=== PATIENT | male | born 1940 | race Caucasian/White ===

== ENCOUNTER 2023-03-03 13:34 | Day surgery (SDC) | payer MEDICARE, SELFPAY ==
[2023-03-02 07:50] VITALS: BMI 37.9
[2023-03-03] VITALS (11 sets, daily range): BP systolic 112–182; BP diastolic 53–88; PULSE 52–62; RESP 12–21; TEMP 36–36.6; O2SAT 92–99; BMI 37.9
--- NOTE | 2023-03-03 06:00 | DI.RAD.S_ITS ---
PROCEDURE: XR KNEE LT 1TO2V INDICATIONS: TKA TECHNIQUE: 2 view(s) of the knee acquired. COMPARISON: None. FINDINGS: Bones: Patient is status post knee joint arthroplasty. Hardware components are in expected positions. Visualized bony structures are intact. Soft tissues: Overlying postoperative changes are noted. IMPRESSION: Expected appearance of knee arthroplasty. Dictated by: Sintia South M.D. on 03/03/2023 at 17:30 Approved by: Sintia South M.D. on 03/03/2023 at 17:30
[2023-03-03 14:28] LABS: COVID19 -Nasal RAPID Negative (Negative)
[2023-03-03] MEDS: CELECOXIB 200 MG CAPSULE PO (14:29)
[2023-03-03] MEDS: LACTATED RINGERS 1,000 ML 42 ML IV (14:30)
[2023-03-03] MEDS: ACETAMINOPHEN 325 MG TABLET 975 MG PO (14:30)
--- NOTE | 2023-03-03 14:47 | PM.PREOP ---
Pre-operative Note COVID-19 COVID-19 status: Negative Result date/Date tested (Pos, Neg/Pending): 03/03/23 Interval Note History & Physical reviewed/Exam performed by Physician: Yes Changes to H&P: No
[2023-03-03] MEDS: CEFAZOLIN 2 GM/100 ML PREMIX 100 ML IV (15:42)
[2023-03-03] MEDS: TRANEXAMIC ACID 1,000 MG VIAL 2000 MG INJ ×2 (15:45→16:50)
--- NOTE | 2023-03-03 15:59 | SUR.OPER ---
Supine on padded OR bed. Pillow under head, arms secured on padded armboards <90 degree abduction. Safety belt across torso. Right leg secured with tape over blanket over lower leg. Left leg secured in DeMayo positioner. Foam padded brace at thigh of operative leg.
[2023-03-03] MEDS: BUPIVACAINE LIPOSOME 266 MG/20 ML VIAL INJ (16:05)
[2023-03-03] MEDS: MORPHINE 4 MG/ML INJ INJ (16:06)
[2023-03-03] MEDS: BUPIVACAINE 0.25% (PF) 60 ML, EPINEPHrine 0.3 MG INJ (16:08)
--- NOTE | 2023-03-03 17:09 | P.OP_ITS ---
Operative Date/Time/Diagnoses Date of procedure: 03/03/23 Time of procedure: 17:09 Pre-op diagnosis: Left knee osteoarthritis Post-op diagnosis: same Procedure & Clinicians Procedure: Left total knee replacement Same procedure as scheduled: Yes Indications: The patient has had progressively worsening left knee pain with radiographic changes consistent with arthritis. Non-operative management has failed and the patient has requested total knee replacement. The risks, benefits and alternatives to surgery were discussed with the patient prior to proceeding. Risks discussed included, but were not limited to, failure to relieve pain, stiffness, infection, nerve damage, deep venous thrombosis, pulmonary embolism, stroke, coma, heart attack, permanent paralysis and , as well as the potential need for eventual revision of the prosthetic. Surgeon: Lenard Brooke Senior Sustainability Consultant: Waldo Rodas Click Yes if Unassisted: No Anesthesia Type: General, Spinal and Local Operative Notes Findings: Significant patellofemoral osteoarthritis with moderate medial and mild lateral osteoarthritis Closure Type: primary Specimen(s): none sent Prosthetic devices, grafts, tissues, transplants, or devices: Implants used in this procedure were manufactured by the [employer] and [employer] and included the BCS II Journey total knee replacement with a size 7 left cobalt chromium femoral component, a size 6 left non porous tibial base plate, a 35 mm oval Zenia II patellar component and a 9 mm cross-linked polyethylene insert. Applied: implant(s) Estimated Blood Loss (mL): 50 Blood products transfused: none Tourniquet time (min): 49 Procedure in detail: The patient was seen in the pre-operative area, where the left knee was identifi ed as the operative site and this was marked with my initials. The patient received pre-operative antibiotics, and was taken to the operating room and placed on the operative table in the supine position. After satisfactory anesthesia, a commercial energy rater out was performed. The left leg was encircled with a tourniquet about the proximal thigh, and the leg was prepared from the toes to the tourniquet with ChloroPrep in the usual fashion and draped through sterile drapes. The leg was elevated and exsanguinated with Eschmark bandage and the tourniquet inflated to 250 mmHg pressure. The knee was approached through an approximately 18 cm incision centered over the patella and carried into the knee through a medial parapatellar arthrotomy. The anterior osteophytes and soft tissues were removed. The rotational landmarks of [place]'s line and the transepicondylar axis were marked on the femur with electrocautery, and intramedullary guide holes for the femur and tibia were created. The distal femoral cut was made in 6 degrees of valgus using the intramedullary guide at the primary cut setting. The proximal tibial cut was then made using the intramedullary guide, taking 9 mm of bone off the less involved side. The extension gap was checked and the rotation of the femoral component confirmed with the gap balancing blocks. The anterior, posterior and chamfer cuts were then made. The posterior osteophytes and soft tissues were then removed. The posterior capsule was injected with part of a mixture of 60 ml 0.25% Marcaine mixed with 20 ml Exparel and 4 mg of morphine for post-operative pain control. The remainder of this mixture was injected into the capsule and subcutaneous tissues during cement curing. The tibia was prepared with the rotation set by an extra medullary guide. Trial tibial and femoral components were then placed and the intercondylar notch cut through the femoral trial. Range of motion was 0-135 degrees, with good stability throughout the range. The patella was then cut to accommodate the patellar prosthetic. There was no need for a lateral release. The trials were then removed, and the femoral hole plugged with a bone plug. The bone was prepared with pulsatile lavage, and dried with a sponge. Cement was applied and the final prosthetics placed. Excess cement was removed during and after cement curing. After confirming there was no extruded cement posteriorly, the final tibial insert was placed. The knee was copiously irrigated and the tourniquet deflated. Hemostasis was obtained. The capsule was closed with interrupted # 2 polyester sutures. The subcutaneous layer was closed with 3-0 Vicryl, and the skin with a running 3-0 V-Lock suture and Dermabond. An Aquacel Ag dressing was applied and the patient was taken to recovery having tolerated the procedure well. The services of a skilled rn neurosurgical were necessary in this case to provide positioning, exposure and retraction to protect vital structures. Without the services of Mr. Rodas, the surgery could not have proceeded in a safe, expedient fashion. Complications: none Post-operative Condition: stable Disposition: PACU Plan for aftercare: The patient will be maintained on a standard total knee replacement protocol with weight bearing as tolerated. The patient will receive aspirin and sequential compression devices for DVT prophylaxis. The patient will be discharged home when safe for the home environment.
[2023-03-03] MEDS: OXYCODONE/ACETAMINOPHEN 5/325 TABLET 1 TAB PO (17:40)
[2023-03-03] MEDS: LACTATED RINGERS 1,000 ML 100 ML IV (18:19)
[2023-03-03] MEDS: ACETAMINOPHEN 325 MG TABLET 650 MG PO ×2 (18:22→23:53)
[2023-03-03] MEDS: HYDROMORPHONE 0.5 MG INJ IV (18:23)
[2023-03-03] MEDS: ATORVASTATIN 20 MG TABLET 10 MG PO (20:26)
[2023-03-03] MEDS: DOCUSATE 100 MG CAPSULE PO (20:26)
[2023-03-03] MEDS: OXYCODONE IR 10 MG TABLET PO ×2 (20:27→23:53)
[2023-03-03] MEDS: FLECAINIDE 100 MG TABLET 200 MG PO (20:27)
[2023-03-03] MEDS: ASPIRIN EC 81 MG TABLET PO (20:45)
[2023-03-04] MEDS: CEFAZOLIN 2 GM/100 ML PREMIX 100 ML IV ×2 (00:02→08:23)
[2023-03-04 03:09] VITALS: BP 140/78; PULSE 72; RESP 17; O2SAT 93
[2023-03-04 05:14] LABS: Hematocrit 32.5 % (41-53); Hemoglobin 11.3 g/dL (13.5-17.5)
[2023-03-04] MEDS: OXYCODONE IR 5 MG TABLET PO ×2 (06:06→11:19)
[2023-03-04] MEDS: ACETAMINOPHEN 325 MG TABLET 650 MG PO ×2 (06:06→11:19)
[2023-03-04] MEDS: lisinopriL 10 MG TABLET PO (08:23)
[2023-03-04] MEDS: FLECAINIDE 100 MG TABLET 200 MG PO (08:23)
[2023-03-04] MEDS: ASPIRIN EC 81 MG TABLET PO (08:24)
[2023-03-04] MEDS: METOPROLOL IR 25 MG TABLET PO (08:24)
[2023-03-04] MEDS: FUROSEMIDE 20 MG TABLET 40 MG PO (08:24)
[2023-03-04] MEDS: DOCUSATE 100 MG CAPSULE PO (08:24)
[2023-03-04 08:53] VITALS: BP 151/69; PULSE 72; RESP 17; TEMP 36.1; O2SAT 94
--- NOTE | 2023-03-04 10:42 | CM.DANOTE ---
DCP: Case received, EMR reviewed and met with patient. Introduced self and role. Was able to obtain information regarding patient's baseline activity status prior to his surgery. DCP assessment completed with information currently available. Patient is an 82 year old male who admitted yesterday morning to the care of the orthopedic team. PCP: Dr. Connelly. Payer: confirmed: [employer] Medicare. Patient came to the hospital for a surgical procedure. Patient had a left total knee replacement. Patient has history of left knee osteoarthritis. Met with patient in his room. He was sitting up in bed, alert and oriented. He had a bandage on his head, and on the side of his right face, indicated that he had recently seen the natural science curator. Confirmed that he resides in [facility], his daughter, Allie Payan, lives out of town. He indicated that he has a partner named Chey, who can assist him at home. He has been driving, indicated that he uses no DME. P: Patient has discharge orders, did work with P.T. once, and they will need to work again with him this afternoon. Sandra Maldonado RN/Pathology Laboratory Director Discharge Planning/Care Management CM Discharge Assessment Start: 03/04/23 10:39 Freq: Status: Active Protocol: Document 03/04/23 10:39 (Rec: 03/04/23 10:42 [id number]) Discharge Planning Assessment Assigned Transformer Assembler Sandra Maldonado RN/Pathology Laboratory Director Advance Directives? Yes Advance Directives on File No History Provided By Patient,Medical Record Prior Living Arrangements House Household Members significant other Type of transporation used prior to Drives own vehicle admit Independent with ADL's Yes Is patient alert and oriented? Yes Caregiver for Another No Barriers to Discharge No Comment Patient indicated that his partner, Chey, should be able to assist him. Discharge Plan Home Transportation Arrangement Friend Referrals Initiated Other Additional Comment P.T. worked with him this morning, will attempt again this pm. Whiteboard Updated in Patient Room with Yes name and ext. # of Transformer Assembler Review Status In Process Next Review Type Continued Stay Review Pre-Anesthesia Assessment Start: 03/01/23 11:59 Freq: Status: Active Protocol: Document 03/02/23 07:50 CAB (Rec: 03/01/23 12:45 CAB [id number]) Pre-Anesthesia Assessment Preferred Name Esteban Patient Information Reviewed Via Phone Assessment Assessment Completed With Patient H&P Completed Within 30 Days Yes Diagnostic Results BMP/CMP,CBC,EKG Comment Outside labs/EKG scanned Primary Care Provider Donny Connelly Specialist Seen Dye Reel Operator Helper,Manager Title, Orthopedist,Other Comment Rheumatology visit 01/05/23 scanned Primary Language Romanian Nurse Practitioner Hospitalist Required No Height 5 ft 7 in Weight 242 lb Body Mass Index (BMI) 37.9 Hearing Ability Normal Visual Assist Magnifying Glass Dentition Type Teeth, Natural Present,Teeth, Missing Barriers to Learning None Hx Anesthesia Reactions No Hx Family Anesthesia Reaction No Hx Malignant Hyperthermia No Hx Blood Transfusions No Anesthesia Review Requested No Bingo Caller No alcohol intake former Smoking Status Former smoker Tobacco type cigarettes how long ago did patient quit smoking Quit 20+ years ago Substance Use Type does not use Pain Present Pain Reported Musculoskeletal Symptoms Abnormal Gait,Difficulty Walking,Joint Pain History of Falling (Recent or History of Yes ) Patient is completely paralyzed or No completely immobile Mental Status Oriented to own ability Is patient on oxygen? No Does patient have CAMPBELL/SOB Yes: CAMPBELL Hx Sleep Apnea No Currently Taking a Beta Megan No Can You Climb a Flight of Stairs Without No SOB Hx Chest Pain No Hx SOB Yes: CAMPBELL Hx Syncope or Dizziness No Anti-Coagulant Therapy Yes: Warfarin-advised to hold 5 days per Cardiology office Has a Dye Reel Operator Helper Yes: Pre-op visit 02/15/[address] Babb @ [facility] Cardiac Testing Yes: Marylu @ [facility] 02/03/23 Hx Pacemaker/ICD No Pacemaker Rep Required? No Cardiac Clearance Received Yes Comment Cardiac records scanned Diet Type At Home Regular Dysphagia No Gastrointestinal Symptoms None Chronic UTI No Bladder Pattern Nocturia Urinary Catheter Present No Hx Urinary Self Catheterization No Diabetes No: Pre-diabetes HgbA1C 6.0 Date 02/01/23 Hx Drug Resistant Organism No Presence of External or Internal Medical No Devices Have you had any close contact with No someone diagnosed with COVID-19? Received a COVID vaccine? Yes Received all doses? Yes Marital Status Single Lives With significant other Current Living Arrangements House Number of Floors (Floors) One Floor Support System Significant Other Does the Patient Have Assistance After Yes Surgery Patient Discharge Plan Description Return Home Comment Pt advised overnight length of stay per surgeon Feels Safe in Current Environment Yes Been Physically Hurt or Threatened By a No Person in Current Environment Do you have thoughts of harming yourself None or others? Are you currently considering suicide? No Do you have a plan to hurt yourself or No Plan others? Do You Have Any Spiritual Beliefs That No May Affect Your HC Choices? Do You Have Any Cultural Practices That No May Affect Your HC Choices? Comment Confucianist Who Can We Speak to About Patient's Care Family, friends Identifying Code for Release of Patient Declines to issue Information Health Care Proxy/Next of Kin Allie (daughter) Sandie Chey (S .O.) Health Care Proxy Phone Number Allie: [phone] Sandie Chey: [phone] Emergency Contact Name Madison (stepdaughter) Emergency Contact Advance Directives? Yes Advance Directives on File No Requested Patient Bring Advanced Yes Directives DOS Power of Central Supply Worker Yes Power of Central Supply Worker Name Allie (daughter) Power of Central Supply Worker PAC Instructions Durable medical equipment, Medications to take/avoid, Nasal antibiotic,No ETOH/ petroleum product on skin DOS, NPO,Pre-op antibiotic,Pre- surgical wash,Sensory aids, Sturdy shoes/comfortable clothes,Do not bring valuables and remove jewelry
--- NOTE | 2023-03-04 11:14 | PM.DS.1 ---
History of Present Illness History of Present Illness Date Patient Seen: 03/04/23 Time Patient Seen: 07:30 Chief complaint: OPB Narrative: Patient is sitting up in bed resting comfortably this morning. He states he is eager to go home today. We discussed that he is not worked with physical therapy yet and will see does so he may be able to go home. He says that his pain has been well managed with medication including Tylenol and oxycodone. Patient notes that he has been urinating well, denies fever, chills, chest pain, shortness of breath. Discharge Providers Provider Discharge Date: 03/04/23 Primary care physician: Donny Connelly MD Consults: 03/03/23 17:52 Consult to Discharge Planning Routine Comment: Consult to Physical Therapy Evaluate & Treat Comment: Physician Instructions: postop TKA protocol Discharge provider: Denice Edwards PA-C Summary Hospital Course Discharge Diagnosis: Status post left TKA Hospital Course: Operative Date/Time/Diagnoses Date of procedure: 03/03/23 Time of procedure: 17:09 Pre-op diagnosis: Left knee osteoarthritis Post-op diagnosis: same Procedure & Clinicians Procedure: Left total knee replacement Same procedure as scheduled: Yes Indications: The patient has had progressively worsening left knee pain with radiographic changes consistent with arthritis. Non-operative management has failed and the patient has requested total knee replacement. The risks, benefits and alternatives to surgery were discussed with the patient prior to proceeding. Risks discussed included, but were not limited to, failure to relieve pain, stiffness, infection, nerve damage, deep venous thrombosis, pulmonary embolism, stroke, coma, heart attack, permanent paralysis and , as well as the potential need for eventual revision of the prosthetic. Surgeon: Lenard Brooke Vba Programmer: Waldo Rodas Click Yes if Unassisted: No Anesthesia Type: General, Spinal and Local Operative Notes Findings: Significant patellofemoral osteoarthritis with moderate medial and mild lateral osteoarthritis Closure Type: primary Specimen(s): none sent Prosthetic devices, grafts, tissues, transplants, or devices: Implants used in this procedure were manufactured by the [employer] and [employer] and included the BCS II Journey total knee replacement with a size 7 left cobalt chromium femoral component, a size 6 left non porous tibial base plate, a 35 mm oval Zenia II patellar component and a 9 mm cross-linked polyethylene insert. Applied: implant(s) Estimated Blood Loss (mL): 50 Blood products transfused: none Tourniquet time (min): 49 Status at Discharge Cognitive/behavioral status at discharge: oriented Functional status at discharge: uses cane/walker Overall status at discharge: patient is progressing back to baseline Exam Vital Signs (past 8 hours): - 03/04/23 07:00 03/04/23 08:53 Temperature 97.0 F L Pulse Rate 72 Respiratory Rate 17 Blood Pressure 151/69 H Pulse Oximetry 94 Oxygen Delivery Method Room Air Oxygen Flow Rate 0 Oxygen Delivery Method Room Air Oxygen Flow Rate 0 Narrative Exam Narrative: Pleasant 82-year-old male. Awake, alert, and oriented. Preoperative Aquacel dressing clean, dry, and intact. Pedrito bandage in place. Strength and sensation intact to bilateral lower extremities. Bilateral calves soft, compressible, nontender with no palpable cords or masses. Bilateral feet with pitting edema L > R. Objective Labs 03/04/23 04:15 Labs: Laboratory Results - last 24 hr 03/03/23 03/04/23 14:00 04:15 Hgb 11.3 L Hct 32.5 L SARS-CoV-2 (PCR) Negative [facility] Medical History Afib History of cardioversion HLD (hyperlipidemia) HTN (hypertension) Macular degeneration of both eyes Osteoarthritis Polymyalgia rheumatica Pre-diabetes Skin cancer Surgical History History of cardiac radiofrequency ablation (~2021) Hx of tonsillectomy Social History household members: significant other Smoking Status: Former smoker alcohol intake: current Discharge Assessment & Plan Assessment and Plan Assessment: Patient is progressing well after left total knee arthroplasty yesterday. Plan of Treatment: Plan to work with physical therapy today and discharge to home if safe and cleared to do so. Patient will continue with multimodal pain regimen. Patient to restart his warfarin today, postop day 1, as advised by his primary care provider. Discharge Plan Discharge Plan Patient Disposition: Home Provider Discharge Comment: Discharge home when safe and cleared by Physical therapy Discharge orders & Medications Discharge Orders: Discharge (Order); Ordered 03/04/23 Ordered By: Denice Edwards Prescriptions: New acetaminophen 325 mg Tablet 650 mg PO Q6H Qty: 120 0RF oxycodone 5 mg Tablet 5 mg PO Q4-6H PRN (Reason: Pain, Moderate (4-6)) Qty: 40 0RF Continued warfarin 2.5 mg Tablet 2.5 mg PO SEEINSTR Rx Instructions: 3.7mg Wed, Sat/2.5mg rest lisinopril 10 mg Tablet 10 mg PO DAILY flecainide 100 mg Tablet 200 mg PO BID furosemide 20 mg Tablet 40 mg PO DAILY lovastatin 20 mg Tablet 20 mg PO BEDTIME metoprolol tartrate 25 mg Tablet 25 mg PO BID Follow up/Referrals: Lenard Brooke MD [Physician] - 2 Weeks Donny Connelly MD [Primary Care Provider] - As previously scheduled (Follow up with Dr Brooke on 03/15/2023 @ 10:30 am at [facility] in [place].) Diet/Activity/Treatments Diet: Diet as Tolerated Activity: Weightbearing as tolerated, progress with physical therapy Cold/Heat Therapy: Ice the knee as needed Skin/Wound/Dressing Care Report to your healthcare provider any signs of infection, such as:: chills, fever, night sweats, unusual drainage and unusual redness Dressing: Keep dressing clean dry and intact until follow up. You may remove your Pedrito bandage on postop day 2. If your dressing becomes wet for any reason please contact our office for dressing change. Visit Report/Discharge Packet Instructions: DI for Knee Replacement Stand Alone Forms: Patient Portal/API, Surgery Discharge Discharge Data Primary Care Provider: Donny Connelly Attending Provider: Lenard Brooke Quality VTE Deep Vein Thrombosis/Pulmonary Embolism Present on Admission: No
--- NOTE | 2023-03-04 12:16 | PT.IIE ---
Current Diagnoses Unilateral primary osteoarthritis, left knee (03/03/23) Pathological fracture, unspecified femur, initial encounter for fracture (03/03/23) Surgery Performed Operation Date: 03/03/23 15:15 Actual Procedures p Total Knee Arthroplasty(Left) - Lenard Brooke MD Surgical History (Last Reviewed 03/04/23 @ 11:19 by Denice Edwards PA-C) History of cardiac radiofrequency ablation (~2021) Hx of tonsillectomy Medical History (Last Reviewed 03/04/23 @ 11:19 by Denice Edwards PA-C) Afib History of cardioversion HLD (hyperlipidemia) HTN (hypertension) Macular degeneration of both eyes Osteoarthritis Polymyalgia rheumatica Pre-diabetes Skin cancer Physical Therapy Inpatient Evaluation/Re-Eval M1 PT/OT-IP Prior Functional Status Start: 03/04/23 12:05 Freq: NEEDED Status: Active Protocol: Document 03/04/23 12:05 ES (Rec: 03/04/23 12:16 ES [id number]) Medical Review Prior Functional Status Medical History Reviewed Yes Diet/Fluid Consistency Regular Communication WFL Mobility and Gait Indep Activities of Daily Living and IADL's Indep Social History Household Members significant other Living Arrangements House Number of Floors (Floors) One Floor Number of Stairs To Enter/Railing? 1 with grab bar Home Environment High Toilet,Walk in Shower,Tub /Shower Home Equipment Front Wheel Walker,Straight Cane Employment Status Retired M2 PT-IP Current Condition Start: 03/04/23 12:05 Freq: NEEDED Status: Active Protocol: Document 03/04/23 12:05 ES (Rec: 03/04/23 12:16 ES [id number]) Physical Therapy Current Condition Current Condition Evaluation Date 03/04/23 Treatment Diagnosis S/p L TKA Onset Date 03/03/23 M3 PT-IP Subjective Start: 03/04/23 12:05 Freq: NEEDED Status: Active Protocol: Document 03/04/23 12:05 ES (Rec: 03/04/23 12:16 ES [id number]) Subjective Physical Therapy Visit Type Type Initial Evaluation Visit Start Time 08:50 Visit Stop Time 09:32 Total Visit Minutes 42 Physical Therapy Visit Comments Patient Comments Patient resting in bed, anxious to get going and to get home. Stated he hasn't been out of bed yet. Patient Goals To go home Therapy Pain Assessment Pain When Pain Assessed During Mobility Pain Present Pain Present Pain Reported Location Left Knee Intensity 9 Scale Used Numeric (0 - 10) Description With Movement Pain Management Techniques Apply Cold,Re-positioning, Timing of Activity with Medications M4 PT-IP Mobility and Gait Start: 03/04/23 12:05 Freq: NEEDED Status: Active Protocol: Document 03/04/23 12:05 ES (Rec: 03/04/23 12:16 ES [id number]) PT-Bed Mobility Assessment Supine to Sit Supine to Sit Minimal Assistance,Head of Bed Elevated Scooting Scooting to Edge of Bed Standby Assistance PT-Transfer Assessment Sit to and From Stand Sit to and from Stand Moderate Assistance,Use of Upper Extremities Equipment Transfer Assistive Device Gait Belt,Front Wheeled Walker Transfers Transfer Destination Chair Transfer Technique Stand Step Pivot Transfer Ability Level of Assist Contact Guard Assistance,Use of Upper Extremities Comments Mobility Comments Required assist to boost to stand, with cues for placing LLE in front to reduce pain. Required cues for hand placement also. Performed from EOB and from recliner, both with difficulty and requiring extra time to complete. Gait Assessment Gait Gait Assistance Required: Contact Guard Assist Distance (Feet) 5 Assistive Devices Assistive Device Gait Belt,Front Wheeled Walker Gait Deviations General Gait Pattern Antalgic,Decreased Stride Length,Decreased Feet Clearance,Flexed Trunk,Step-to Gait Factors Limiting Gait Function Factors Limiting Gait Function Decreased Strength,Pain,Poor Balance Comments Gait Comments Ambulated with difficulty from bed to recliner. Patient declined to ambulate further this visit. Stair Climbing Assessment Comments Stair Climbing Comments Did not attempt this visit due to pain and weakness. PT-Balance Assessment Sitting Balance and Reactions Static Sitting Balance Ability Good Dynamic Sitting Balance Ability Fair Standing Balance and Reactions Static Standing Balance Ability Fair Dynamic Standing Balance Ability Fair Device Used FWW M5 PT-IP Objective Assessments Start: 03/04/23 12:05 Freq: NEEDED Status: Active Protocol: Document 03/04/23 12:05 ES (Rec: 03/04/23 12:16 ES [id number]) Orientation Orientation/Cognition Level of Alertness Alert Language Function Ability Hard of Hearing Safety Awareness Decreased Safety Awareness Memory Description No Deficits Noted Gross Range of Motion Upper Extremity ROM Assessment Within Functional Limits Lower Extremity ROM Assessment Left Impaired Impairments L knee impaired, also some limitation in L ankle DF likely from swelling Strength Upper Extremity Strength Assessment Within Functional Limits Lower Extremity Strength Assessment Left Impaired Hip Grossly 3+/5 Knee Grossly 3-/5 Ankle Grossly 3+/5 Coordination Assessment Gross Coordination Gross Coordination WNL M6 PT-IP Treatment Start: 03/04/23 12:05 Freq: NEEDED Status: Active Protocol: Document 03/04/23 12:05 ES (Rec: 03/04/23 12:16 ES [id number]) Physical Therapy Treatment Exercises Exercises Ankle Pumps,Quad Sets,Heel Slides,Straight Leg Raises, Short Arc Quads,Passive Knee Extension Hang,Seated Knee Flexion/Extension Knee ROM Measurement 0-70 degrees L knee flexion Education Education Provided Precautions,Weight Bearing Status,Post-Op Packet,Safety M7 PT-IP Assessment and Plan Start: 03/04/23 12:05 Freq: NEEDED Status: Active Protocol: Document 03/04/23 12:05 ES (Rec: 03/04/23 12:16 ES [id number]) PT Summary Assessment and Plan Potential Rehabilitation Potential Good Status of Condition at Evaluation Stable Summary Impairments Pain,ROM,Strength,Balance,Bed Mobility,Transfers,Gait, Activity Tolerance Assessment Summary Patient is a 82 year old male s/p L TKA who presents with impaired functional mobility due to the above problems. Patient had been medicated earlier this morning and had minimal pain at rest. He had quite a bit of difficulty and required assistance with bed mobility and transfers due to pain and weakness. He was unable to ambulate household distances and was not appropriate to attempt stairs this visit due to increased risk for falls. He will benefit from further PT to progress his mobility to be able to d/c home safely. Will plan to see after next scheduled dose of pain medication to see if his mobility improves enough to go home today. Goals Bed Mobility Goal Independent Transfer Goal Independent,Front Wheeled Walker Gait Goal Independent,Front Wheel Walker Gait Distance 100 Other Goals Patient will be able to ascend /descend 1 stair with grab bar and LRAD with CGA. Days to Meet Goals 3 Frequency of Treatment Frequency Of Treatment Twice a Day Treatment Plan Physical Therapy Treatment Plan Bed Mobility Training,Transfer Training,Gait Training, Therapeutic Exercise,Post Op Education,Discharge Planning, Hot or Cold Pack Weight Bearing Status Weight Bearing Status Weight Bear as Tolerated Recommendations To Nursing Amount of Assist Needed 1 Person Assist Discharge Recommendations PT Discharge Recommendations Home with Assistance, Outpatient PT Transportation Needs at Discharge Private Vehicle
--- NOTE | 2023-03-04 13:44 | PT.IPTN ---
Current Diagnoses Unilateral primary osteoarthritis, left knee (03/03/23) Pathological fracture, unspecified femur, initial encounter for fracture (03/03/23) Surgery Performed Operation Date: 03/03/23 15:15 Actual Procedures p Total Knee Arthroplasty(Left) - Lenard Brooke MD Physical Therapy Treatment Note M2 PT-IP Current Condition Start: 03/04/23 12:05 Freq: NEEDED Status: Active Protocol: Document 03/04/23 12:05 ES (Rec: 03/04/23 12:16 ES [id number]) Physical Therapy Current Condition Current Condition Evaluation Date 03/04/23 Treatment Diagnosis S/p L TKA Onset Date 03/03/23 M3 PT-IP Subjective Start: 03/04/23 12:05 Freq: NEEDED Status: Active Protocol: Document 03/04/23 13:33 ES (Rec: 03/04/23 13:44 ES [id number]) Subjective Physical Therapy Visit Type Type Treatment Note Visit Start Time 13:04 Visit Stop Time 13:31 Total Visit Minutes 27 Physical Therapy Visit Comments Patient Comments Patient up in chair, daughter and SO present. Patient agreed to work with PT with family encouragement. Patient reported some pain but unable to provide rating. Pain meds given prior to treatment. Patient Goals To go home today. M4 PT-IP Mobility and Gait Start: 03/04/23 12:05 Freq: NEEDED Status: Active Protocol: Document 03/04/23 13:33 ES (Rec: 03/04/23 13:44 ES [id number]) PT-Transfer Assessment Sit to and From Stand Sit to and from Stand Contact Guard Assistance,Use of Upper Extremities Equipment Transfer Assistive Device Gait Belt,Front Wheeled Walker Transfers Transfer Destination Chair,Wheelchair Transfer Technique Stand Step Pivot Transfer Ability Level of Assist Contact Guard Assistance,Use of Upper Extremities Comments Mobility Comments Required extra time to complete, cues for hand placement on chair vs FWW, and for placing L foot in front. Gait Assessment Gait Gait Assistance Required: Contact Guard Assist Distance (Feet) 40 Assistive Devices Assistive Device Gait Belt,Front Wheeled Walker Gait Deviations General Gait Pattern Antalgic,Decreased Stride Length,Decreased Feet Clearance,Flexed Trunk,Step-to Gait,Wide Based Gait Factors Limiting Gait Function Factors Limiting Gait Function Decreased Strength,Pain,Poor Balance Comments Gait Comments Initially ambulated with FWW too far from body and shuffling steps. Improved with significant cueing and with FWW height lowered. Ambulated slowly. Stair Climbing Assessment Evaluation Level of Assist On Stairs Contact Guard Assistance Devices Stair Climbing Assistive Devices Left Railing Technique/Endurance Stair Climbing Direction Ascend and Descend Stair Climbing Technique Step to Step Number of Steps Climbed 3 Stair Climbing Set # Repetitions (reps) 1 Comments Stair Climbing Comments Instructed patient and SO on correct sequencing of LE's and for use of grab bar going up, FWW going down. PT-Balance Assessment Sitting Balance and Reactions Static Sitting Balance Ability Good Dynamic Sitting Balance Ability Good Standing Balance and Reactions Static Standing Balance Ability Good Dynamic Standing Balance Ability Fair Device Used FWW M5 PT-IP Objective Assessments Start: 03/04/23 12:05 Freq: NEEDED Status: Active Protocol: Document 03/04/23 12:05 ES (Rec: 03/04/23 12:16 ES [id number]) Orientation Orientation/Cognition Level of Alertness Alert Language Function Ability Hard of Hearing Safety Awareness Decreased Safety Awareness Memory Description No Deficits Noted Gross Range of Motion Upper Extremity ROM Assessment Within Functional Limits Lower Extremity ROM Assessment Left Impaired Impairments L knee impaired, also some limitation in L ankle DF likely from swelling Strength Upper Extremity Strength Assessment Within Functional Limits Lower Extremity Strength Assessment Left Impaired Hip Grossly 3+/5 Knee Grossly 3-/5 Ankle Grossly 3+/5 Coordination Assessment Gross Coordination Gross Coordination WNL M6 PT-IP Treatment Start: 03/04/23 12:05 Freq: NEEDED Status: Active Protocol: Document 03/04/23 13:33 ES (Rec: 03/04/23 13:44 ES [id number]) Physical Therapy Treatment Exercises Knee ROM Measurement 0-90 degrees L knee flexion Education Education Provided Precautions,Weight Bearing Status,Post-Op Packet,Safety Other Treatments Other Treatment Performed Reviewed HEP with SO with demonstration and handout. M7 PT-IP Assessment and Plan Start: 03/04/23 12:05 Freq: NEEDED Status: Active Protocol: Document 03/04/23 13:33 ES (Rec: 03/04/23 13:44 ES [id number]) PT Summary Assessment and Plan Potential Rehabilitation Potential Good Status of Condition at Evaluation Stable Summary Impairments Pain,ROM,Strength,Balance,Bed Mobility,Transfers,Gait, Activity Tolerance Assessment Summary Patient demonstrated ability to progress gait, and required decreased assistance with transfers though he still had difficulty and required extra time to complete. Patient demonstrated poor recall of instructions, needing frequent and repeated cueing. SO demonstrated good understanding and was educated to provide cues to patient at home. Patient continues to be at increased risk for falls and will require 24/7 supervision initially at home. Daughter will be staying with patient initially which will help with safety and follow- through. Patient is appropriate to d/c home with assistance at this time. Goals Bed Mobility Goal Independent Transfer Goal Independent,Front Wheeled Walker Gait Goal Independent,Front Wheel Walker Gait Distance 100 Other Goals Patient will be able to ascend /descend 1 stair with grab bar and LRAD with CGA. Days to Meet Goals 3 Frequency of Treatment Frequency Of Treatment Twice a Day Treatment Plan Physical Therapy Treatment Plan Bed Mobility Training,Transfer Training,Gait Training, Therapeutic Exercise,Post Op Education,Discharge Planning, Hot or Cold Pack Weight Bearing Status Weight Bearing Status Weight Bear as Tolerated Recommendations To Nursing Amount of Assist Needed 1 Person Assist Discharge Recommendations PT Discharge Recommendations Home with 24/7 Assist Available,Outpatient PT Transportation Needs at Discharge Private Vehicle
== END 2023-03-04 13:58 | disposition home or self-care (01) ==
LOC: OR 13:36 → AC 13:42
PROVIDERS: PCP Family Medicine; Referring Provider Orthopaedic Surgery; Visit Provider Orthopaedic Surgery
PROC: 0SRD0JZ Replacement of Left Knee Joint with Synthetic Substitute, Open Approach (ICD-10-PCS; CPT 27447; principal; 2023-03-03 15:15)
DX: M17.12 Unilateral primary osteoarthritis, left knee (principal); I48.91 Unspecified atrial fibrillation; I10 Essential (primary) hypertension; M35.3 Polymyalgia rheumatica
CPT/HCPCS: 27447; 36415; 73560; 82962; 85014; 85018; 87635; 97116; 97162; 97530; C1776; C9803; C9290; J0171; J0690; J1170; J2270; J2405; J2704; J3010

== ENCOUNTER 2024-08-09 08:15 | Outpatient (RCR) | payer MEDICARE, SELFPAY ==
[2023-03-03 18:13] VITALS: BMI 37.9
--- NOTE | 2024-05-16 13:41 | PT.OIE ---
Current Diagnoses Stiffness of left knee, not elsewhere classified (05/16/24) Stiffness of right ankle, not elsewhere classified (05/16/24) Other lack of coordination (05/16/24) Weakness (05/16/24) Displaced fracture of lateral malleolus of right fibula, initial encounter for closed fracture (05/16/24) Past Medical History (Last Reviewed 03/04/23 @ 11:19 by Denice Edwards PA-C) Afib History of cardioversion HLD (hyperlipidemia) HTN (hypertension) Macular degeneration of both eyes Osteoarthritis Polymyalgia rheumatica Pre-diabetes Skin cancer Past Surgical History (Last Reviewed 03/04/23 @ 11:19 by Denice Edwards PA-C) History of cardiac radiofrequency ablation (~2021) Hx of tonsillectomy Visit Care Team Role Provider Type Donny Connelly MD Family Provider Non-Staff Primary Care Provider Specialty: Family Practice Address: [address] [place] [address], [id number] Email: Reji Fung PA-C Attending Provider Non-Staff Referring Provider Specialty: Medical Address: [address] [place] [address] , [place], [address] Email: Physical Therapy Initial Evaluation PT-OP-A Visit Information Start: 05/16/24 10:33 Freq: Status: Active Protocol: Document 05/16/24 10:35 NM (Rec: 05/16/24 12:04 NM [id number]) Out-Patient Physical Therapy Visit Information Visit Information Visit Type Initial Evaluation Visit Start Time 10:35 Visit Stop Time 11:20 Visit Number 1 Evaluation Information Evaluation Date 05/16/24 Precautions Precautions monitor vitals w/ exercise Afib, heart disease, fall risk PT-OP-B Current Condition Start: 05/16/24 10:33 Freq: Status: Active Protocol: Document 05/16/24 10:35 NM (Rec: 05/16/24 12:04 NM [id number]) Current Condition History of Current Condition Onset Date 2-3 months ago (pt unsure of date) Current Complaints pain, transfers, mobility, gait, balance, falls History of Current Condition Pt presents with RLE pain and limited mobility following high lateral malleolus fracture. States all healed, has Xray showing healed. He reports pain with WB on RLE during transfers and gait. Using spc in R hand, uses a FWW for household. 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 He reports that he still has L knee pain (aches and shooting pain, arch pain in foot) especially with attempting to rise from a chair. Pt reports that he broke his RLE after falling in the bathroom in the middle of the night, fell against the wall. He states he lost his balance and fell. He was in boot and had braces. Currently not in a brace or boot. He has 2 steps to get into the house, has a rail; no stairs inside the home. Hand rails only in shower, has a high rise toilet. No other injuries to his RLE. 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 However, he has had cardioversion before several times to correct rhythm. Significant PMH for blood pressure, possible aneurysm per pt, water retention in BLE. Reports several falls overall. Pt lives with , who attended evaluation and helped provide hx Prior Treatments and Tests 04/07/24 clinic appt with referral states radiographs reveal healed fracture Prior Functional Status Baseline Function- ADL's Independent Baseline Function- Mobility Independent Baseline Function- Gait 1-2 blocks Baseline Function- Recreation/Hobbies retired: golf (hasn't done since before TKA), fishing, clam digging, hunting Current Functional Impairments (Reported) Functional Limitations- ADL's balance and pain: dressing, shoes Functional Limitations- Mobility/Gait transfers (STS) ambulation with FWW and spc Functional Limitations- Recreation/ retired: golf (hasn't done Hobbies since before TKA), fishing, clam digging, hunting wants to get yard work PT-OP-C Subjective Start: 05/16/24 10:33 Freq: Status: Active Protocol: Document 05/16/24 10:35 NM (Rec: 05/16/24 12:04 NM [id number]) OP-PT Subjective Patient Comments Patient Comments Pt consents to participate in evaluation Patient Questionnaires Foot & Ankle Ability Measure- ADL and Sports FAAM-ADL Score 50/84 FAAM-Sport Score 6/32 Lower Extremity Functional Scale LEFS Score 33/80 OP-PT Pain Assessment Location L ankle Pain Location Details lateral ankle pain Intensity 6 Scale Used Numeric (0 - 10) Description Aching,Sharp Description- Other at rest 01/0 Frequency Frequent Radiating Location no numbness or tingling Pain Aggravating Factors ADL's,Activity,Exercise, Standing,Walking Other Pain Aggravating Factors WB, DF/PF Other Pain Alleviating Factors soak foot in epson salt for foot PT-OP-E Functional Tests Start: 05/16/24 10:33 Freq: Status: Active Protocol: Document 05/16/24 10:35 NM (Rec: 05/16/24 12:04 NM [id number]) Functional Tests 6 Minute Walk Test Distance 567 ft Device Used spc in L hand Comments 1 stumble w/o LOB; has R heel pain after 4 minutes Five Times Sit to Stand Test Score unable to complete due to L knee pain Comments requires 2 hand assist to rise Timed Up and Go (TUG) Score 21 seconds Comments spc in L hand (corrected height) PT-OP-F Manual Assessment Start: 05/16/24 10:33 Freq: Status: Active Protocol: Document 05/16/24 10:35 NM (Rec: 05/16/24 12:04 NM [id number]) Manual Assessments Soft Tissue Assessment Soft Tissue Mobility Assessment Increased edema in BLE, worse at ankles/dorsal feet. Limitations in B heel cord length Joint Mobility Assessment Joint Mobility Assessment No instability at R ankle or knee, but limited ray and talocrural mobility PT-OP-G Mobility & Gait Start: 05/16/24 10:33 Freq: Status: Active Protocol: Document 05/16/24 10:35 NM (Rec: 05/16/24 12:04 NM [id number]) OP Gait Assessment Gait Gait Assistance Required: Standby Assistance Distance (Feet) 150 Assistive Devices Assistive Device Gait Belt,Straight Cane Gait Deviations General Gait Pattern Decreased Stride Length, Decreased Feet Clearance,Wide Based Gait Factors Limiting Gait Function Factors Limiting Gait Function Decreased Activity Tolerance, Decreased Sensation,Limited Range of Motion,Pain,Poor Balance Comments Gait Comments Performed at beginning of evaluation. Pt demos antalgic gait and uses spc in R hand, leaning heavily on spc for assistance. Spc placed far from body. Demos B foot ER, quick heel off after weight acceptance. Wide based gait. Uses custom wood spc PT-OP-H Neuro Start: 05/16/24 10:33 Freq: Status: Active Protocol: Document 05/16/24 10:35 NM (Rec: 05/16/24 12:04 NM [id number]) Sensation Evaluation Comments Summary Comments BLE equally intact to light touch sensation PT-OP-J Posture/Palpation/Skin Start: 05/16/24 10:33 Freq: Status: Active Protocol: Document 05/16/24 10:35 NM (Rec: 05/16/24 12:04 NM [id number]) Posture Evaluation Comments Posture Comments Demos wide base stance, decreased WB on RLE Palpation Assessment Location R leg Palpation Findings Edema,Soft Tissue Tightness Palpation Details No tenderness to palpation along medial or lateral malleoli or along entire fibula from malleoli to fibular head. No tenderness along tibia. Tenderness along talocrural joint near mortise Increased edema bilaterally, especially along dorsal foot and ankle, non-pitting Skin Assessment Circumference Measurement L ankle Location figure 8: 65 cm R ankle Location figure 8: 60 cm Comments 30 cm across malleoli Other Assessments Skin Assessment Comments BLE ankle/feet skin is tight due to edema, reddened and dry /flaky PT-OP-K Range of Motion Start: 05/16/24 10:33 Freq: Status: Active Protocol: Document 05/16/24 10:35 NM (Rec: 05/16/24 12:04 NM [id number]) Knee Goniometric Range of Motion Knee Left Flexion Active (degrees) 110 Extension Active (degrees) 8 Extension Passive (degrees) 2 Comments Uncomfortable Right Flexion Active (degrees) 115 Extension Active (degrees) 2 Extension Passive (degrees) 0 Comments No pain with knee flexion but tight in anterior knee Ankle and Foot Goniometric Range of Motion Ankle and Foot Left Dorsiflexion with Knee Flexed 3 Plantarflexion 40 Inversion 20 Eversion 2 Right Dorsiflexion with Knee Flexed 3 Plantarflexion 45 Inversion 15 Eversion 2 Comments Mild pain with AROM DF, inversion PT-OP-M Strength Start: 05/16/24 10:33 Freq: Status: Active Protocol: Document 05/16/24 10:35 NM (Rec: 05/16/24 12:04 NM [id number]) Hip Strength Hip Manual Muscle Testing Left Flexion (L2) 4 Good Extension (S1) 4 Good Abduction 4 Good Adduction 4 Good External Rotation 4 Good Internal Rotation 4 Good Right Flexion (L2) 4- Good- Extension (S1) 4- Good- Abduction 4- Good- Adduction 4- Good- External Rotation 4- Good- Internal Rotation 4- Good- Comments No pain Knee Strength Knee Manual Muscle Testing Left Flexion (S2) 4 Good Extension (L3) 4 Good Comments No pain Right Flexion (S2) 4- Good- Extension (L3) 4- Good- Comments No pain Ankle/Foot Strength Ankle and Foot Manual Muscle Testing Left Dorsiflexion (L4) 4 Good Plantarflexion (S1) 4 Good Inversion 4 Good Eversion (S1) 4 Good Comments All tested in sitting (no standing PF due to time) Right Dorsiflexion (L4) 4- Good- Plantarflexion (S1) 4 Good Inversion 3+ Fair+ Eversion (S1) 3+ Fair+ Comments All tested in sitting (no standing PF due to time) PT-OP-Q Treatments Start: 05/16/24 10:33 Freq: Status: Active Protocol: Document 05/16/24 10:35 NM (Rec: 05/16/24 12:04 NM [id number]) Gait Training Gait Activity spc Device Used spc in L hand Level of Assistance close SBA Surface stable Distance/Duration 8 minutes Treatment Focus spc placement, adjustment, sequencing, WB Comments Spc adjusted to correct height and placed in L hand instead of R hand. Cued for spc positioning and sequencing during gait for safety and to improve WB tolerance Self-Care/Home Management Treatment Education Patient Education Fall Risk,Pain Management, Safety Other Education Educated pt and on correct placement with spc height, positioning and placement, in addition to recommendation to pt and to continue to use spc around home for safety and to decrease fall risk. Educated on local sources for new spc and as current custom spc height cannot be adjusted PT-OP-T Assessment and Plan Start: 05/16/24 10:33 Freq: Status: Active Protocol: Document 05/16/24 10:35 NM (Rec: 05/16/24 12:04 NM [id number]) Physical Therapy Assessment Rehab Potential Rehabilitation Potential Good Evaluation Complexity Number of Personal Factors/Comorbidities 3 or More Number of Body Systems Impaired 4 or More Clinical Presentation at Evaluation Stable Impairments Impairments Activity Tolerance,Balance, Edema,Functional Activities, Functional Mobility,Gait, Integument,Pain,Posture,ROM, Sensation,Soft Tissue Mobility ,Strength,Transfers Other Concerns Fall Risk high Barriers to Rehabilitation Pt has several co-morbidities (e.g. aneurysm, Afib, kidney nodules, etc) and is a poor historian Goals Five Impairment gait- 6 MWT distance with spc 567 ft Short Term Goal (STG) Pt will be able to ambulate using LRAD for at least 500 ft without increase in baseline pain in R ankle or L knee in order to demonstrate improved activity tolerance STG Duration 6 weeks Intermediate Goal (LTG) Pt will improve 6 MWT distance using LRAD by at least 200 ft (1 MCID) in order to demonstrate improved gait speed, endurance, and BLE strength for household & community ambulation LTG Duration 12 weeks Four Impairment transfers- difficulty with sit to stand Short Term Goal (STG) Pt will be able to perform sit to stand using LRAD and at least 1 UE assist in order to stand without increase in baseline pain in order to demonstrate improved pain management and safety with transfers STG Duration 6 weeks Intermediate Goal (LTG) Pt will be able to perform at least 5 sit to stands from standard chair without UE assist, if appropriate, in order to demonstrate improved BLE strength for transfers and initial standing balance LTG Duration 12 weeks Three Impairment balance- TUG score 21 seconds Intermediate Goal (LTG) Pt will decrease TUG time using LRAD to less than 12 seconds in order to meet safe community ambulation distance/ speed in addition to improved balance to decrease fall risk LTG Duration 12 weeks Two Impairment strength- limitations in R ankle strength Intermediate Goal (LTG) Pt will improve R ankle global strength to at least 4/5 in order to demonstrate increased strength for gait, stability during stance, and balance during transfers LTG Duration 12 weeks One Impairment ROM- limitations in DF and eversion ROM Dental Office Manager Goal (LTG) Pt will improve R ankle dorsiflexion AROM to at least 5 deg and R ankle eversion AROM to at least 10 deg in order to demonstrate improved gait mechanics and ankle ROM for functional mobility LTG Duration 12 weeks Assessment Summary Assessment Pt is an 83 y.o. male presenting with R leg pain s/p healed fracture of R high lateral malleolus 2-3 months ago. Pt is unsure of when he fracture his ankle; however, pt fractured ankle during a ground level fall and has had several falls before this injury. Pt also had L TKA in 2022, which continues to limit his mobility with gait and transfers. Pt currently has impairments in BLE ROM and strength, gait, pain management, transfers, AD use, balance, activity tolerance, endurance, and edema management. He has several co- morbidities that influence overall health and healing rates, which may limit progression with PT. Pt has decreased R ankle and knee ROM and strength. He also has pain with weightbearing due to R heel pain and L knee pain. Pt is unable to perform at sit to stand transfer without BUE assistance, even to AD. He is currently using an spc for gait/balance, but also utilizes a FWW at home. He is currently able to ambulate less than community distances with heel/arch pain in RLE. PT educated pt and on exam findings and plan of care. PT also initiated gait training with pt for correct spc use, height, placement, and sequencing. Pt would benefit from skilled PT for progressive BLE strengthening, R ankle mobility, gait, and balance training in order to improve functional mobility with gait/transfers, improve ability to perform ADLs, decrease fall risk, and improve QOL. Physical Therapy Plan Frequency and Duration Frequency of Treatment 2x/Week Duration of treatment (weeks) 12 Plan of Care Start Date 05/16/24 Plan of Care End Date 08/11/24 Therapeutic Interventions Therapeutic Interventions Balance Training,Gait Training ,Home Exercise Program,Joint Mobilizations,Manual Therapy, Neuromuscular Re-education, Orthotic/Prosthetic Management ,Patient/Caregiver Education, Self-Care/Home Management, Sensory Integration,Soft Tissue Mobilization,Taping, Therapeutic Activities, Therapeutic Exercises Modalities Cold Pack/Ice Massage Next Visit Focus/Plan Next Note Type Treatment Note Next Visit Plan take BP for baseline, Collins STS from high surface with less UE support LAQ, HSC, hip abduction in sitting or standing, ankle ROM : circles, abcs, banded 4 way, calf stretch. Foot intrinsics : short arch raise, toe ext, toe flex, marbles progress to STS, leg pess, step up,
--- NOTE | 2024-05-19 12:34 | PT.OTN ---
Current Diagnoses Stiffness of left knee, not elsewhere classified (05/19/24) Stiffness of right ankle, not elsewhere classified (05/19/24) Other lack of coordination (05/19/24) Weakness (05/19/24) Displaced fracture of lateral malleolus of right fibula, initial encounter for closed fracture (05/19/24) Physical Therapy Treatment Note PT-OP-A Visit Information Start: 05/16/24 10:33 Freq: Status: Active Protocol: Document 05/19/24 10:34 NM (Rec: 05/19/24 11:18 NM [id number]) Out-Patient Physical Therapy Visit Information Visit Information Visit Type Treatment Note Visit Note BP at start of session: 147/82 mmHg 72 bom, 97 spO2 Visit Start Time 10:34 Visit Stop Time 11:10 Visit Number 2 Evaluation Information Evaluation Date 05/16/24 Precautions Precautions monitor vitals w/ exercise Afib, heart disease, fall risk PT-OP-B Current Condition Start: 05/16/24 10:33 Freq: Status: Active Protocol: Document 05/16/24 10:35 NM (Rec: 05/16/24 12:04 NM [id number]) Current Condition History of Current Condition Onset Date 2-3 months ago (pt unsure of date) Current Complaints pain, transfers, mobility, gait, balance, falls History of Current Condition Pt presents with RLE pain and limited mobility following high lateral malleolus fracture. States all healed, has Xray showing healed. He reports pain with WB on RLE during transfers and gait. Using spc in R hand, uses a FWW for household. 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 He reports that he still has L knee pain (aches and shooting pain, arch pain in foot) especially with attempting to rise from a chair. Pt reports that he broke his RLE after falling in the bathroom in the middle of the night, fell against the wall. He states he lost his balance and fell. He was in boot and had braces. Currently not in a brace or boot. He has 2 steps to get into the house, has a rail; no stairs inside the home. Hand rails only in shower, has a high rise toilet. No other injuries to his RLE. 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 However, he has had cardioversion before several times to correct rhythm. Significant PMH for blood pressure, possible aneurysm per pt, water retention in BLE. Reports several falls overall. Pt lives with , who attended evaluation and helped provide hx Prior Treatments and Tests 04/07/24 clinic appt with referral states radiographs reveal healed fracture Prior Functional Status Baseline Function- ADL's Independent Baseline Function- Mobility Independent Baseline Function- Gait 1-2 blocks Baseline Function- Recreation/Hobbies retired: golf (hasn't done since before TKA), fishing, clam digging, hunting Current Functional Impairments (Reported) Functional Limitations- ADL's balance and pain: dressing, shoes Functional Limitations- Mobility/Gait transfers (STS) ambulation with FWW and spc Functional Limitations- Recreation/ retired: golf (hasn't done Hobbies since before TKA), fishing, clam digging, hunting wants to get yard work PT-OP-C Subjective Start: 05/16/24 10:33 Freq: Status: Active Protocol: Document 05/19/24 10:34 NM (Rec: 05/19/24 11:18 NM [id number]) OP-PT Subjective Patient Comments Patient Comments Pt reports 4-5/10 R ankle pain and 3/10 L knee pain (here in PT for his R ankle). 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 Wants to cut session short because going to a PT-OP-E Functional Tests Start: 05/16/24 10:33 Freq: Status: Active Protocol: Document 05/16/24 10:35 NM (Rec: 05/16/24 12:04 NM [id number]) Functional Tests 6 Minute Walk Test Distance 567 ft Device Used spc in L hand Comments 1 stumble w/o LOB; has R heel pain after 4 minutes Five Times Sit to Stand Test Score unable to complete due to L knee pain Comments requires 2 hand assist to rise Timed Up and Go (TUG) Score 21 seconds Comments spc in L hand (corrected height) PT-OP-F Manual Assessment Start: 05/16/24 10:33 Freq: Status: Active Protocol: Document 05/16/24 10:35 NM (Rec: 05/16/24 12:04 NM [id number]) Manual Assessments Soft Tissue Assessment Soft Tissue Mobility Assessment Increased edema in BLE, worse at ankles/dorsal feet. Limitations in B heel cord length Joint Mobility Assessment Joint Mobility Assessment No instability at R ankle or knee, but limited ray and talocrural mobility PT-OP-G Mobility & Gait Start: 05/16/24 10:33 Freq: Status: Active Protocol: Document 05/16/24 10:35 NM (Rec: 05/16/24 12:04 NM [id number]) OP Gait Assessment Gait Gait Assistance Required: Standby Assistance Distance (Feet) 150 Assistive Devices Assistive Device Gait Belt,Straight Cane Gait Deviations General Gait Pattern Decreased Stride Length, Decreased Feet Clearance,Wide Based Gait Factors Limiting Gait Function Factors Limiting Gait Function Decreased Activity Tolerance, Decreased Sensation,Limited Range of Motion,Pain,Poor Balance Comments Gait Comments Performed at beginning of evaluation. Pt demos antalgic gait and uses spc in R hand, leaning heavily on spc for assistance. Spc placed far from body. Demos B foot ER, quick heel off after weight acceptance. Wide based gait. Uses custom wood spc PT-OP-H Neuro Start: 05/16/24 10:33 Freq: Status: Active Protocol: Document 05/16/24 10:35 NM (Rec: 05/16/24 12:04 NM [id number]) Sensation Evaluation Comments Summary Comments BLE equally intact to light touch sensation PT-OP-J Posture/Palpation/Skin Start: 05/16/24 10:33 Freq: Status: Active Protocol: Document 05/16/24 10:35 NM (Rec: 05/16/24 12:04 NM [id number]) Posture Evaluation Comments Posture Comments Demos wide base stance, decreased WB on RLE Palpation Assessment Location R leg Palpation Findings Edema,Soft Tissue Tightness Palpation Details No tenderness to palpation along medial or lateral malleoli or along entire fibula from malleoli to fibular head. No tenderness along tibia. Tenderness along talocrural joint near mortise Increased edema bilaterally, especially along dorsal foot and ankle, non-pitting Skin Assessment Circumference Measurement L ankle Location figure 8: 65 cm R ankle Location figure 8: 60 cm Comments 30 cm across malleoli Other Assessments Skin Assessment Comments BLE ankle/feet skin is tight due to edema, reddened and dry /flaky PT-OP-K Range of Motion Start: 05/16/24 10:33 Freq: Status: Active Protocol: Document 05/16/24 10:35 NM (Rec: 05/16/24 12:04 NM [id number]) Knee Goniometric Range of Motion Knee Left Flexion Active (degrees) 110 Extension Active (degrees) 8 Extension Passive (degrees) 2 Comments Uncomfortable Right Flexion Active (degrees) 115 Extension Active (degrees) 2 Extension Passive (degrees) 0 Comments No pain with knee flexion but tight in anterior knee Ankle and Foot Goniometric Range of Motion Ankle and Foot Left Dorsiflexion with Knee Flexed 3 Plantarflexion 40 Inversion 20 Eversion 2 Right Dorsiflexion with Knee Flexed 3 Plantarflexion 45 Inversion 15 Eversion 2 Comments Mild pain with AROM DF, inversion PT-OP-M Strength Start: 05/16/24 10:33 Freq: Status: Active Protocol: Document 05/16/24 10:35 NM (Rec: 05/16/24 12:04 NM [id number]) Hip Strength Hip Manual Muscle Testing Left Flexion (L2) 4 Good Extension (S1) 4 Good Abduction 4 Good Adduction 4 Good External Rotation 4 Good Internal Rotation 4 Good Right Flexion (L2) 4- Good- Extension (S1) 4- Good- Abduction 4- Good- Adduction 4- Good- External Rotation 4- Good- Internal Rotation 4- Good- Comments No pain Knee Strength Knee Manual Muscle Testing Left Flexion (S2) 4 Good Extension (L3) 4 Good Comments No pain Right Flexion (S2) 4- Good- Extension (L3) 4- Good- Comments No pain Ankle/Foot Strength Ankle and Foot Manual Muscle Testing Left Dorsiflexion (L4) 4 Good Plantarflexion (S1) 4 Good Inversion 4 Good Eversion (S1) 4 Good Comments All tested in sitting (no standing PF due to time) Right Dorsiflexion (L4) 4- Good- Plantarflexion (S1) 4 Good Inversion 3+ Fair+ Eversion (S1) 3+ Fair+ Comments All tested in sitting (no standing PF due to time) PT-OP-Q Treatments Start: 05/16/24 10:33 Freq: Status: Active Protocol: Document 05/19/24 10:34 NM (Rec: 05/19/24 11:18 NM [id number]) Therapeutic Exercises Sitting Exercises ankle dorsiflexion Sitting Exercise Name 1. heel slides, 2. with band Side right Resistance level 1 band Reps/Minutes 1. 10x3, 2. 10 Comments cued heel on floor; slight lateral ankle discomfort at end range DF ankle plantarflexion Sitting Exercise Name gas pedals Side right Resistance level 1 band Reps/Minutes 10x3 hold at end range Comments edu not to push into PF as far if lateral ankle pain calf stretch Sitting Exercise Name HEP: 1. gastroc, 2. soleus Side right Equipment Used strap Reps/Minutes 60 ankle AROM Sitting Exercise Name 1. ankle pumps, 2. circles, 3. ABCs (capitals)- HEP Side right Reps/Minutes 1. 2x10, 2. 10 CW and CCW, 3. 1 set Comments little achy Manual Therapy Treatment Consent Patient gave verbal consent for manual Yes treatment Soft Tissue Mobilization R ankle/foot Body Location swelling management, calf, peroneals, tibialis Mobilization Type Cross-Friction,Rolling,Other Intensity/Depth Superficial Body Position Hooklying Comments Performed gentle distal > proximal soft tissue mobilization for swelling management and pain reduction. Tenderness just under lateral malleolus. Monitored for pain Joint Mobilizations R ankle/foot Joint talocrural, rays 1-5, toe ext Direction post Grade II Body Position Hooklying Reps/Duration 4x30 ea TC, 1x10 rays ea Comments Monitored for pain. Performed for joint mobility. R ankle limited in DF and 1st ray with extension Fibula slightly anterior distally PT-OP-T Assessment and Plan Start: 05/16/24 10:33 Freq: Status: Active Protocol: Document 05/19/24 10:34 NM (Rec: 05/19/24 11:18 NM [id number]) Physical Therapy Assessment Goals Five Impairment gait- 6 MWT distance with spc 567 ft Short Term Goal (STG) Pt will be able to ambulate using LRAD for at least 500 ft without increase in baseline pain in R ankle or L knee in order to demonstrate improved activity tolerance STG Duration 6 weeks Sustainability Purchasing Agent Goal (LTG) Pt will improve 6 MWT distance using LRAD by at least 200 ft (1 MCID) in order to demonstrate improved gait speed, endurance, and BLE strength for household & community ambulation LTG Duration 12 weeks Four Impairment transfers- difficulty with sit to stand Short Term Goal (STG) Pt will be able to perform sit to stand using LRAD and at least 1 UE assist in order to stand without increase in baseline pain in order to demonstrate improved pain management and safety with transfers STG Duration 6 weeks Fdc Goal (LTG) Pt will be able to perform at least 5 sit to stands from standard chair without UE assist, if appropriate, in order to demonstrate improved BLE strength for transfers and initial standing balance LTG Duration 12 weeks Three Impairment balance- TUG score 21 seconds Sustainability Purchasing Agent Goal (LTG) Pt will decrease TUG time using LRAD to less than 12 seconds in order to meet safe community ambulation distance/ speed in addition to improved balance to decrease fall risk LTG Duration 12 weeks Two Impairment strength- limitations in R ankle strength Fdc Goal (LTG) Pt will improve R ankle global strength to at least 4/5 in order to demonstrate increased strength for gait, stability during stance, and balance during transfers LTG Duration 12 weeks One Impairment ROM- limitations in DF and eversion ROM Fdc Goal (LTG) Pt will improve R ankle dorsiflexion AROM to at least 5 deg and R ankle eversion AROM to at least 10 deg in order to demonstrate improved gait mechanics and ankle ROM for functional mobility LTG Duration 12 weeks Assessment Summary Assessment Pt tolerated session well but has to leave early for a so decreased time. Initiated R ankle AROM to improve mobility. Pt has mild pain with R ankle eversion and end range dorsiflexion/ plantarflexion. Trialed sagittal plane banded ankle strengthening with isometric at available end range for pain reduction. Pt requires cues for form; no increase in pain levels. Initiated R ankle mobilizations for pain reduction with gait and to improve mobility. Tolerated well, monitored extensively for pain throughout. Pt has limitations in R ankle ROM globally. He would benefit from skilled PT for R ankle mobility and strength to improve BLE strength, balance, and gait. Physical Therapy Plan Frequency and Duration Frequency of Treatment 2x/Week Duration of treatment (weeks) 12 Plan of Care Start Date 05/16/24 Plan of Care End Date 08/11/24 Therapeutic Interventions Therapeutic Interventions Balance Training,Gait Training ,Home Exercise Program,Joint Mobilizations,Manual Therapy, Neuromuscular Re-education, Orthotic/Prosthetic Management ,Patient/Caregiver Education, Self-Care/Home Management, Sensory Integration,Soft Tissue Mobilization,Taping, Therapeutic Activities, Therapeutic Exercises Modalities Cold Pack/Ice Massage Next Visit Focus/Plan Next Note Type Treatment Note Next Visit Plan blood pressure w/ activity Next: banded ankle 4 way, rockerboard ML & AP, glute and quad strength progress to STS from high surface with less UE support LAQ, HSC, hip abduction in sitting, ankle ROM: circles, abcs, banded 4 way, calf stretch. Foot intrinsics: short arch raise, toe ext, toe flex, marbles POC: progress to STS, leg pess , step up
--- NOTE | 2024-05-24 11:18 | PT.OTN ---
Current Diagnoses Stiffness of left knee, not elsewhere classified (05/24/24) Stiffness of right ankle, not elsewhere classified (05/24/24) Other lack of coordination (05/24/24) Weakness (05/24/24) Displaced fracture of lateral malleolus of right fibula, initial encounter for closed fracture (05/24/24) Physical Therapy Treatment Note PT-OP-A Visit Information Start: 05/16/24 10:33 Freq: Status: Active Protocol: Document 05/24/24 10:36 SP (Rec: 05/24/24 11:42 SP [id number]) Out-Patient Physical Therapy Visit Information Visit Information Visit Type Treatment Note Visit Note BP at start of session: 147/82 mmHg 72 bom, 97 spO2 Visit Start Time 10:36 Visit Stop Time 11:18 Visit Number 3 Number of AUTOTRANSFUSIONIST Visits 1 Evaluation Information Evaluation Date 05/16/24 Precautions Precautions monitor vitals w/ exercise Afib, heart disease, fall risk PT-OP-B Current Condition Start: 05/16/24 10:33 Freq: Status: Active Protocol: Document 05/16/24 10:35 NM (Rec: 05/16/24 12:04 NM [id number]) Current Condition History of Current Condition Onset Date 2-3 months ago (pt unsure of date) Current Complaints pain, transfers, mobility, gait, balance, falls History of Current Condition Pt presents with RLE pain and limited mobility following high lateral malleolus fracture. States all healed, has Xray showing healed. He reports pain with WB on RLE during transfers and gait. Using spc in R hand, uses a FWW for household. 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 He reports that he still has L knee pain (aches and shooting pain, arch pain in foot) especially with attempting to rise from a chair. Pt reports that he broke his RLE after falling in the bathroom in the middle of the night, fell against the wall. He states he lost his balance and fell. He was in boot and had braces. Currently not in a brace or boot. He has 2 steps to get into the house, has a rail; no stairs inside the home. Hand rails only in shower, has a high rise toilet. No other injuries to his RLE. 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 However, he has had cardioversion before several times to correct rhythm. Significant PMH for blood pressure, possible aneurysm per pt, water retention in BLE. Reports several falls overall. Pt lives with , who attended evaluation and helped provide hx Prior Treatments and Tests 04/07/24 clinic appt with referral states radiographs reveal healed fracture Prior Functional Status Baseline Function- ADL's Independent Baseline Function- Mobility Independent Baseline Function- Gait 1-2 blocks Baseline Function- Recreation/Hobbies retired: golf (hasn't done since before TKA), fishing, clam digging, hunting Current Functional Impairments (Reported) Functional Limitations- ADL's balance and pain: dressing, shoes Functional Limitations- Mobility/Gait transfers (STS) ambulation with FWW and spc Functional Limitations- Recreation/ retired: golf (hasn't done Hobbies since before TKA), fishing, clam digging, hunting wants to get yard work PT-OP-C Subjective Start: 05/16/24 10:33 Freq: Status: Active Protocol: Document 05/24/24 10:36 SP (Rec: 05/24/24 11:42 SP [id number]) OP-PT Subjective Patient Comments Patient Comments Pt reports R ankle 4/10, L knee 4-5/10 arrival. He reports if stands alot his R arch hurts more and sore on harder surfaces. PT-OP-E Functional Tests Start: 05/16/24 10:33 Freq: Status: Active Protocol: Document 05/16/24 10:35 NM (Rec: 05/16/24 12:04 NM [id number]) Functional Tests 6 Minute Walk Test Distance 567 ft Device Used spc in L hand Comments 1 stumble w/o LOB; has R heel pain after 4 minutes Five Times Sit to Stand Test Score unable to complete due to L knee pain Comments requires 2 hand assist to rise Timed Up and Go (TUG) Score 21 seconds Comments spc in L hand (corrected height) PT-OP-F Manual Assessment Start: 05/16/24 10:33 Freq: Status: Active Protocol: Document 05/16/24 10:35 NM (Rec: 05/16/24 12:04 NM [id number]) Manual Assessments Soft Tissue Assessment Soft Tissue Mobility Assessment Increased edema in BLE, worse at ankles/dorsal feet. Limitations in B heel cord length Joint Mobility Assessment Joint Mobility Assessment No instability at R ankle or knee, but limited ray and talocrural mobility PT-OP-G Mobility & Gait Start: 05/16/24 10:33 Freq: Status: Active Protocol: Document 05/16/24 10:35 NM (Rec: 05/16/24 12:04 NM [id number]) OP Gait Assessment Gait Gait Assistance Required: Standby Assistance Distance (Feet) 150 Assistive Devices Assistive Device Gait Belt,Straight Cane Gait Deviations General Gait Pattern Decreased Stride Length, Decreased Feet Clearance,Wide Based Gait Factors Limiting Gait Function Factors Limiting Gait Function Decreased Activity Tolerance, Decreased Sensation,Limited Range of Motion,Pain,Poor Balance Comments Gait Comments Performed at beginning of evaluation. Pt demos antalgic gait and uses spc in R hand, leaning heavily on spc for assistance. Spc placed far from body. Demos B foot ER, quick heel off after weight acceptance. Wide based gait. Uses custom wood spc PT-OP-H Neuro Start: 05/16/24 10:33 Freq: Status: Active Protocol: Document 05/16/24 10:35 NM (Rec: 05/16/24 12:04 NM [id number]) Sensation Evaluation Comments Summary Comments BLE equally intact to light touch sensation PT-OP-J Posture/Palpation/Skin Start: 05/16/24 10:33 Freq: Status: Active Protocol: Document 05/16/24 10:35 NM (Rec: 05/16/24 12:04 NM [id number]) Posture Evaluation Comments Posture Comments Demos wide base stance, decreased WB on RLE Palpation Assessment Location R leg Palpation Findings Edema,Soft Tissue Tightness Palpation Details No tenderness to palpation along medial or lateral malleoli or along entire fibula from malleoli to fibular head. No tenderness along tibia. Tenderness along talocrural joint near mortise Increased edema bilaterally, especially along dorsal foot and ankle, non-pitting Skin Assessment Circumference Measurement L ankle Location figure 8: 65 cm R ankle Location figure 8: 60 cm Comments 30 cm across malleoli Other Assessments Skin Assessment Comments BLE ankle/feet skin is tight due to edema, reddened and dry /flaky PT-OP-K Range of Motion Start: 05/16/24 10:33 Freq: Status: Active Protocol: Document 05/16/24 10:35 NM (Rec: 05/16/24 12:04 NM [id number]) Knee Goniometric Range of Motion Knee Left Flexion Active (degrees) 110 Extension Active (degrees) 8 Extension Passive (degrees) 2 Comments Uncomfortable Right Flexion Active (degrees) 115 Extension Active (degrees) 2 Extension Passive (degrees) 0 Comments No pain with knee flexion but tight in anterior knee Ankle and Foot Goniometric Range of Motion Ankle and Foot Left Dorsiflexion with Knee Flexed 3 Plantarflexion 40 Inversion 20 Eversion 2 Right Dorsiflexion with Knee Flexed 3 Plantarflexion 45 Inversion 15 Eversion 2 Comments Mild pain with AROM DF, inversion PT-OP-M Strength Start: 05/16/24 10:33 Freq: Status: Active Protocol: Document 05/16/24 10:35 NM (Rec: 05/16/24 12:04 NM [id number]) Hip Strength Hip Manual Muscle Testing Left Flexion (L2) 4 Good Extension (S1) 4 Good Abduction 4 Good Adduction 4 Good External Rotation 4 Good Internal Rotation 4 Good Right Flexion (L2) 4- Good- Extension (S1) 4- Good- Abduction 4- Good- Adduction 4- Good- External Rotation 4- Good- Internal Rotation 4- Good- Comments No pain Knee Strength Knee Manual Muscle Testing Left Flexion (S2) 4 Good Extension (L3) 4 Good Comments No pain Right Flexion (S2) 4- Good- Extension (L3) 4- Good- Comments No pain Ankle/Foot Strength Ankle and Foot Manual Muscle Testing Left Dorsiflexion (L4) 4 Good Plantarflexion (S1) 4 Good Inversion 4 Good Eversion (S1) 4 Good Comments All tested in sitting (no standing PF due to time) Right Dorsiflexion (L4) 4- Good- Plantarflexion (S1) 4 Good Inversion 3+ Fair+ Eversion (S1) 3+ Fair+ Comments All tested in sitting (no standing PF due to time) PT-OP-Q Treatments Start: 05/16/24 10:33 Freq: Status: Active Protocol: Document 05/24/24 10:36 SP (Rec: 05/24/24 11:42 SP [id number]) Therapeutic Exercises Sitting Exercises arch lift Sitting Exercise Name added to HEP Side right Resistance AROM Reps/Minutes 10 reps, 10 reps 5 sec hold Comments cued toe curl ok initially but want focus arch for stabiltiy gait support ankle dorsiflexion Sitting Exercise Name 1. heel slides 2. ankle eversion 3. ankle inversion Side right Resistance level 2 band Reps/Minutes 1. 10x3, 2 & 3. x10 Comments cued heel on floor; slight lateral ankle discomfort at end range DF ankle plantarflexion Sitting Exercise Name gas pedals Side right Resistance level 2 band Reps/Minutes 10x3 hold at end range Comments edu keep ankle midline & ecc return, not allow wood turner- improved no pain, calf stretch Sitting Exercise Name HEP: 1. gastroc, 2. soleus Side right Equipment Used strap Reps/Minutes 60 Comments states not a strong stretch but feel helpful for move ankle Standing Exercises calf stretch Standing Exercise Name trialed in PT Side bilateral Resistance rail support (has enter garage home) Equipment Used off 6step, B rail support Reps/Minutes gastroc & soleus 5 reps AROM then 30 sec each Comments discussed as alternative at home to loosed up ankle- stiff /slight sore>good Other Exercises self STM Other Exercise Name plantar fascia Side right Equipment Used golf ball roll gentle pressure massage Reps/Minutes 20 sec Comments good feedback response, discussed can use frozen waterbottle ok- he decide Gait Training Gait Activity spc Device Used spc in L hand vs RUE used to to support L knee Level of Assistance SBA Surface stable Distance/Duration 8 minutes Treatment Focus spc placement, adjustment, sequencing SPC /c opp UE, WB Comments Cued education and demonstrated challenged SPC positioning in LUE to support R ankle during gait. Stable balanced sequencing in RUE to support L knee pain reports needed today. R ankle has good stance time without addtional UE support during gait. Challenged and unstable in LUE to support R ankle. Dont feel need to correct his functional use SPC in RUE to support L knee. Manual Therapy Treatment Joint Mobilizations R ankle/foot Joint talocrural PA, rays 1-5 PA and gross rotation med/lat, DF PROM Direction post Grade II Body Position Hooklying Comments Monitored for pain. Performed for joint mobility. R ankle limited in DF and 1st ray with extension Fibula slightly anterior distally PT-OP-T Assessment and Plan Start: 05/16/24 10:33 Freq: Status: Active Protocol: Document 05/24/24 10:36 SP (Rec: 05/24/24 11:42 SP [id number]) Physical Therapy Assessment Goals Five Impairment gait- 6 MWT distance with spc 567 ft Short Term Goal (STG) Pt will be able to ambulate using LRAD for at least 500 ft without increase in baseline pain in R ankle or L knee in order to demonstrate improved activity tolerance STG Duration 6 weeks Printer Assistant Goal (LTG) Pt will improve 6 MWT distance using LRAD by at least 200 ft (1 MCID) in order to demonstrate improved gait speed, endurance, and BLE strength for household & community ambulation LTG Duration 12 weeks Four Impairment transfers- difficulty with sit to stand Short Term Goal (STG) Pt will be able to perform sit to stand using LRAD and at least 1 UE assist in order to stand without increase in baseline pain in order to demonstrate improved pain management and safety with transfers STG Duration 6 weeks Nursing Home Goal (LTG) Pt will be able to perform at least 5 sit to stands from standard chair without UE assist, if appropriate, in order to demonstrate improved BLE strength for transfers and initial standing balance LTG Duration 12 weeks Three Impairment balance- TUG score 21 seconds Nursing Home Goal (LTG) Pt will decrease TUG time using LRAD to less than 12 seconds in order to meet safe community ambulation distance/ speed in addition to improved balance to decrease fall risk LTG Duration 12 weeks Two Impairment strength- limitations in R ankle strength Nursing Home Goal (LTG) Pt will improve R ankle global strength to at least 4/5 in order to demonstrate increased strength for gait, stability during stance, and balance during transfers LTG Duration 12 weeks One Impairment ROM- limitations in DF and eversion ROM Printer Assistant Goal (LTG) Pt will improve R ankle dorsiflexion AROM to at least 5 deg and R ankle eversion AROM to at least 10 deg in order to demonstrate improved gait mechanics and ankle ROM for functional mobility LTG Duration 12 weeks Assessment Summary Assessment Pt demonstrated unstable with review SPC placement LUE for support R ankle vs functional patterning SPC in RUE to support L knee, past replacement. Dont feel need to correction funcitonal patterning and demonstrates stable safe. Improved R ankle ROM post manual and time spent resisted ankle strengthening review then trialed and added arch lift and STMs use of golf ball vs frozen waterbottle for plantarfascia mobility with good response feedback, provided hand out support for activities today set up and recall. Physical Therapy Plan Frequency and Duration Frequency of Treatment 2x/Week Duration of treatment (weeks) 12 Plan of Care Start Date 05/16/24 Plan of Care End Date 08/11/24 Therapeutic Interventions Therapeutic Interventions Balance Training,Gait Training ,Home Exercise Program,Joint Mobilizations,Manual Therapy, Neuromuscular Re-education, Orthotic/Prosthetic Management ,Patient/Caregiver Education, Self-Care/Home Management, Sensory Integration,Soft Tissue Mobilization,Taping, Therapeutic Activities, Therapeutic Exercises Modalities Cold Pack/Ice Massage Next Visit Focus/Plan Next Note Type Treatment Note Next Visit Plan blood pressure w/ activity Review added arch lift, resisted IV/EV/PF and self STMs planta fascia. Next: add resiseted DF, rockerboard ML & AP, glute and quad strength progress to STS from high surface with less UE support LAQ, HSC, hip abduction in sitting, ankle ROM: circles, abcs, banded 4 way, calf stretch. Foot intrinsics: short arch raise, toe ext, toe flex, marbles POC: progress to STS, leg pess , step up
--- NOTE | 2024-05-26 11:15 | PT.OTN ---
Current Diagnoses Stiffness of left knee, not elsewhere classified (05/26/24) Stiffness of right ankle, not elsewhere classified (05/26/24) Other lack of coordination (05/26/24) Weakness (05/26/24) Displaced fracture of lateral malleolus of right fibula, initial encounter for closed fracture (05/26/24) Physical Therapy Treatment Note PT-OP-A Visit Information Start: 05/16/24 10:33 Freq: Status: Active Protocol: Document 05/26/24 10:32 SP (Rec: 05/26/24 11:20 SP [id number]) Out-Patient Physical Therapy Visit Information Visit Information Visit Type Treatment Note Visit Note LUE BP at start of session: 160/86 mmHg automated & 160/90 manual HR 55 bom, 97-98% spO2 End tx 160/90 Visit Start Time 10:32 Visit Stop Time 11:15 Visit Number 4 Number of GASOLINE LOCOMOTIVE CRANE OPERATOR Visits 2 Evaluation Information Evaluation Date 05/16/24 Precautions Precautions monitor vitals w/ exercise Afib, heart disease, fall risk PT-OP-B Current Condition Start: 05/16/24 10:33 Freq: Status: Active Protocol: Document 05/16/24 10:35 NM (Rec: 05/16/24 12:04 NM [id number]) Current Condition History of Current Condition Onset Date 2-3 months ago (pt unsure of date) Current Complaints pain, transfers, mobility, gait, balance, falls History of Current Condition Pt presents with RLE pain and limited mobility following high lateral malleolus fracture. States all healed, has Xray showing healed. He reports pain with WB on RLE during transfers and gait. Using spc in R hand, uses a FWW for household. 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 He reports that he still has L knee pain (aches and shooting pain, arch pain in foot) especially with attempting to rise from a chair. Pt reports that he broke his RLE after falling in the bathroom in the middle of the night, fell against the wall. He states he lost his balance and fell. He was in boot and had braces. Currently not in a brace or boot. He has 2 steps to get into the house, has a rail; no stairs inside the home. Hand rails only in shower, has a high rise toilet. No other injuries to his RLE. 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 However, he has had cardioversion before several times to correct rhythm. Significant PMH for blood pressure, possible aneurysm per pt, water retention in BLE. Reports several falls overall. Pt lives with , who attended evaluation and helped provide hx Prior Treatments and Tests 04/07/24 clinic appt with referral states radiographs reveal healed fracture Prior Functional Status Baseline Function- ADL's Independent Baseline Function- Mobility Independent Baseline Function- Gait 1-2 blocks Baseline Function- Recreation/Hobbies retired: golf (hasn't done since before TKA), fishing, clam digging, hunting Current Functional Impairments (Reported) Functional Limitations- ADL's balance and pain: dressing, shoes Functional Limitations- Mobility/Gait transfers (STS) ambulation with FWW and spc Functional Limitations- Recreation/ retired: golf (hasn't done Hobbies since before TKA), fishing, clam digging, hunting wants to get yard work PT-OP-C Subjective Start: 05/16/24 10:33 Freq: Status: Active Protocol: Document 05/26/24 10:32 SP (Rec: 05/26/24 11:20 SP [id number]) OP-PT Subjective Patient Comments Patient Comments Pt reports r ankle 1-2/10, L knee 5-6/10 arrival rested. He stated complaint with ankle exercises, pnfree except when went to far so limited range felt ok. He reports his BP has still been in the 140s/70s. Pt had some changes in medication per physician: DC'd Warfarin and started Eliquis med yesterday. He stated has been going to the bathroom alot and at times has small amounts of urge incontinence on way to bathroom. Pt reports self plantar fascia rolling lessens tension. PT-OP-E Functional Tests Start: 05/16/24 10:33 Freq: Status: Active Protocol: Document 05/16/24 10:35 NM (Rec: 05/16/24 12:04 NM [id number]) Functional Tests 6 Minute Walk Test Distance 567 ft Device Used spc in L hand Comments 1 stumble w/o LOB; has R heel pain after 4 minutes Five Times Sit to Stand Test Score unable to complete due to L knee pain Comments requires 2 hand assist to rise Timed Up and Go (TUG) Score 21 seconds Comments spc in L hand (corrected height) PT-OP-F Manual Assessment Start: 05/16/24 10:33 Freq: Status: Active Protocol: Document 05/16/24 10:35 NM (Rec: 05/16/24 12:04 NM [id number]) Manual Assessments Soft Tissue Assessment Soft Tissue Mobility Assessment Increased edema in BLE, worse at ankles/dorsal feet. Limitations in B heel cord length Joint Mobility Assessment Joint Mobility Assessment No instability at R ankle or knee, but limited ray and talocrural mobility PT-OP-G Mobility & Gait Start: 05/16/24 10:33 Freq: Status: Active Protocol: Document 05/16/24 10:35 NM (Rec: 05/16/24 12:04 NM [id number]) OP Gait Assessment Gait Gait Assistance Required: Standby Assistance Distance (Feet) 150 Assistive Devices Assistive Device Gait Belt,Straight Cane Gait Deviations General Gait Pattern Decreased Stride Length, Decreased Feet Clearance,Wide Based Gait Factors Limiting Gait Function Factors Limiting Gait Function Decreased Activity Tolerance, Decreased Sensation,Limited Range of Motion,Pain,Poor Balance Comments Gait Comments Performed at beginning of evaluation. Pt demos antalgic gait and uses spc in R hand, leaning heavily on spc for assistance. Spc placed far from body. Demos B foot ER, quick heel off after weight acceptance. Wide based gait. Uses custom wood spc PT-OP-H Neuro Start: 05/16/24 10:33 Freq: Status: Active Protocol: Document 05/16/24 10:35 NM (Rec: 05/16/24 12:04 NM [id number]) Sensation Evaluation Comments Summary Comments BLE equally intact to light touch sensation PT-OP-J Posture/Palpation/Skin Start: 05/16/24 10:33 Freq: Status: Active Protocol: Document 05/16/24 10:35 NM (Rec: 05/16/24 12:04 NM [id number]) Posture Evaluation Comments Posture Comments Demos wide base stance, decreased WB on RLE Palpation Assessment Location R leg Palpation Findings Edema,Soft Tissue Tightness Palpation Details No tenderness to palpation along medial or lateral malleoli or along entire fibula from malleoli to fibular head. No tenderness along tibia. Tenderness along talocrural joint near mortise Increased edema bilaterally, especially along dorsal foot and ankle, non-pitting Skin Assessment Circumference Measurement L ankle Location figure 8: 65 cm R ankle Location figure 8: 60 cm Comments 30 cm across malleoli Other Assessments Skin Assessment Comments BLE ankle/feet skin is tight due to edema, reddened and dry /flaky PT-OP-K Range of Motion Start: 05/16/24 10:33 Freq: Status: Active Protocol: Document 05/16/24 10:35 NM (Rec: 05/16/24 12:04 NM [id number]) Knee Goniometric Range of Motion Knee Left Flexion Active (degrees) 110 Extension Active (degrees) 8 Extension Passive (degrees) 2 Comments Uncomfortable Right Flexion Active (degrees) 115 Extension Active (degrees) 2 Extension Passive (degrees) 0 Comments No pain with knee flexion but tight in anterior knee Ankle and Foot Goniometric Range of Motion Ankle and Foot Left Dorsiflexion with Knee Flexed 3 Plantarflexion 40 Inversion 20 Eversion 2 Right Dorsiflexion with Knee Flexed 3 Plantarflexion 45 Inversion 15 Eversion 2 Comments Mild pain with AROM DF, inversion PT-OP-M Strength Start: 05/16/24 10:33 Freq: Status: Active Protocol: Document 05/16/24 10:35 NM (Rec: 05/16/24 12:04 NM [id number]) Hip Strength Hip Manual Muscle Testing Left Flexion (L2) 4 Good Extension (S1) 4 Good Abduction 4 Good Adduction 4 Good External Rotation 4 Good Internal Rotation 4 Good Right Flexion (L2) 4- Good- Extension (S1) 4- Good- Abduction 4- Good- Adduction 4- Good- External Rotation 4- Good- Internal Rotation 4- Good- Comments No pain Knee Strength Knee Manual Muscle Testing Left Flexion (S2) 4 Good Extension (L3) 4 Good Comments No pain Right Flexion (S2) 4- Good- Extension (L3) 4- Good- Comments No pain Ankle/Foot Strength Ankle and Foot Manual Muscle Testing Left Dorsiflexion (L4) 4 Good Plantarflexion (S1) 4 Good Inversion 4 Good Eversion (S1) 4 Good Comments All tested in sitting (no standing PF due to time) Right Dorsiflexion (L4) 4- Good- Plantarflexion (S1) 4 Good Inversion 3+ Fair+ Eversion (S1) 3+ Fair+ Comments All tested in sitting (no standing PF due to time) PT-OP-Q Treatments Start: 05/16/24 10:33 Freq: Status: Active Protocol: Document 05/26/24 10:32 SP (Rec: 05/26/24 11:20 SP [id number]) Cardio Equipment Recumbent Elliptical (Biodex) Duration (Minutes) 4 Resistance 2 Seat Position 8 (nonsymptomatic but reported little ankle irritation so stopped end time) Other BUE&LEs only- ankle ROM- BP 162/110 manual LUE Therapeutic Exercises Sitting Exercises arch lift Sitting Exercise Name HEP Side right Resistance AROM Reps/Minutes 10 reps, 10 reps 5 sec hold Comments cued toe curl ok initially but want focus arch for stabiltiy gait support ankle dorsiflexion Sitting Exercise Name 1. heel slides 2. ankle eversion 3. ankle inversion 4. DF Side right Resistance level 2 band Reps/Minutes 2 & 3. 2x20 Comments cued heel on floor; slight lateral ankle discomfort at end range DF ankle plantarflexion Sitting Exercise Name gas pedals Side right Resistance level 2 band Reps/Minutes 2x20 Comments edu keep ankle midline & ecc return, not allow glove turner and former automatic- improved no pain, Standing Exercises ankle mobility Standing Exercise Name future rocker board Standing Exercise Name future calf stretch Standing Exercise Name 1. off step 2. lunge Side bilateral Resistance rail support (has enter garage home) Equipment Used 1. 4 step Reps/Minutes gastroc & soleus 5 reps AROM then 30 sec each Comments ankle discomfort- DC Manual Therapy Treatment Joint Mobilizations R ankle/foot Joint talocrural PA, rays 1-5 PA and gross rotation med/lat, DF PROM Direction post Grade II Comments Monitored for pain. Performed for joint mobility. R ankle limited in DF and 1st ray with extension Fibula slightly anterior distally Self-Care/Home Management Treatment Education Patient Education Safety Other Education TIme spent: assess BP pre and with activity. Education provided with supervising PT recommendation safe values and with elevation today instructed to call physician today to discuss elevation ( provided written values taken) and having urge incontinence since starting Eliquis medication yesterday. PT-OP-T Assessment and Plan Start: 05/16/24 10:33 Freq: Status: Active Protocol: Document 05/26/24 10:32 SP (Rec: 05/26/24 11:20 SP [id number]) Physical Therapy Assessment Goals Five Impairment gait- 6 MWT distance with spc 567 ft Short Term Goal (STG) Pt will be able to ambulate using LRAD for at least 500 ft without increase in baseline pain in R ankle or L knee in order to demonstrate improved activity tolerance STG Duration 6 weeks [facility] Goal (LTG) Pt will improve 6 MWT distance using LRAD by at least 200 ft (1 MCID) in order to demonstrate improved gait speed, endurance, and BLE strength for household & community ambulation LTG Duration 12 weeks Four Impairment transfers- difficulty with sit to stand Short Term Goal (STG) Pt will be able to perform sit to stand using LRAD and at least 1 UE assist in order to stand without increase in baseline pain in order to demonstrate improved pain management and safety with transfers STG Duration 6 weeks [facility] Goal (LTG) Pt will be able to perform at least 5 sit to stands from standard chair without UE assist, if appropriate, in order to demonstrate improved BLE strength for transfers and initial standing balance LTG Duration 12 weeks Three Impairment balance- TUG score 21 seconds [facility] Goal (LTG) Pt will decrease TUG time using LRAD to less than 12 seconds in order to meet safe community ambulation distance/ speed in addition to improved balance to decrease fall risk LTG Duration 12 weeks Two Impairment strength- limitations in R ankle strength Wiring Techn[employer] Goal (LTG) Pt will improve R ankle global strength to at least 4/5 in order to demonstrate increased strength for gait, stability during stance, and balance during transfers LTG Duration 12 weeks One Impairment ROM- limitations in DF and eversion ROM [facility] Goal (LTG) Pt will improve R ankle dorsiflexion AROM to at least 5 deg and R ankle eversion AROM to at least 10 deg in order to demonstrate improved gait mechanics and ankle ROM for functional mobility LTG Duration 12 weeks Assessment Summary Assessment Pt demonstrated some urge incontinence beginning of tx and needed to use bathroom during tx. Discussed to give feedback to physician of these symptoms not normally have prior to change in medication, pt verbalized understanding and would follow through with request. Pt demonstrates good stability arrival use wooden SPC in RUE patterning to support L knee pain. GASOLINE LOCOMOTIVE CRANE OPERATOR noted elevated BP pre activity 160/ 86 mmHg automated & 160/90 manual and further increase 162/110 trial recumbent elliptical bike nonsymptomatic . GASOLINE LOCOMOTIVE CRANE OPERATOR notified supervising PT with recommendation during remaining time of today's appt , provided education in notifying physician of urge incontinence and elevation in BP (provided HO with values taken for him to share) and assess BP rest and low seated level activity, demonstrated reduction 162/90 similar to value taken at arrival but still not at baseline 140s / 70s as gets at home. Pt needs occasional cues for set up and proper form of ankle exercises using theraband. Did not progress standing activity as deemed unsafe with elevated BP. Will continue to assess BP pre activity and progress next tx if safe and tolerated. Physical Therapy Plan Frequency and Duration Frequency of Treatment 2x/Week Duration of treatment (weeks) 12 Plan of Care Start Date 05/16/24 Plan of Care End Date 08/11/24 Therapeutic Interventions Therapeutic Interventions Balance Training,Gait Training ,Home Exercise Program,Joint Mobilizations,Manual Therapy, Neuromuscular Re-education, Orthotic/Prosthetic Management ,Patient/Caregiver Education, Self-Care/Home Management, Sensory Integration,Soft Tissue Mobilization,Taping, Therapeutic Activities, Therapeutic Exercises Modalities Cold Pack/Ice Massage Next Visit Focus/Plan Next Note Type Treatment Note Next Visit Plan blood pressure pre and w/ activity! Review HEP if BP safe range: arch lift, resisted IV/EV/PF/ DF and self STMs planta fascia . Next: rockerboard ML & AP, glute and quad strength progress to STS from high surface with less UE support LAQ, HSC, hip abduction in sitting, ankle ROM: circles, abcs, banded 4 way, calf stretch. Foot intrinsics: short arch raise, toe ext, toe flex, marbles POC: progress to STS, leg pess , step up
--- NOTE | 2024-05-30 13:46 | PT.OTN ---
Current Diagnoses Stiffness of left knee, not elsewhere classified (05/30/24) Stiffness of right ankle, not elsewhere classified (05/30/24) Other lack of coordination (05/30/24) Weakness (05/30/24) Displaced fracture of lateral malleolus of right fibula, initial encounter for closed fracture (05/30/24) Physical Therapy Treatment Note PT-OP-A Visit Information Start: 05/16/24 10:33 Freq: Status: Active Protocol: Document 05/30/24 12:59 AB (Rec: 05/30/24 13:45 AB [id number]) Out-Patient Physical Therapy Visit Information Visit Information Visit Type Treatment Note Visit Note Patient late checking in, initiating co pay at 13:04 into gym 13:08 BP left UE seated start of session 178/95 HR 88 HR 97. supine post manual therapy 168 /96 HR 84 Visit Start Time 13:08 Visit Stop Time 13:40 Visit Number 5 Number of PUFF IRON OPERATOR Visits 3 Evaluation Information Evaluation Date 05/16/24 Precautions Precautions monitor vitals w/ exercise Afib, heart disease, fall risk PT-OP-B Current Condition Start: 05/16/24 10:33 Freq: Status: Active Protocol: Document 05/16/24 10:35 NM (Rec: 05/16/24 12:04 NM [id number]) Current Condition History of Current Condition Onset Date 2-3 months ago (pt unsure of date) Current Complaints pain, transfers, mobility, gait, balance, falls History of Current Condition Pt presents with RLE pain and limited mobility following high lateral malleolus fracture. States all healed, has Xray showing healed. He reports pain with WB on RLE during transfers and gait. Using spc in R hand, uses a FWW for household. 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 He reports that he still has L knee pain (aches and shooting pain, arch pain in foot) especially with attempting to rise from a chair. Pt reports that he broke his RLE after falling in the bathroom in the middle of the night, fell against the wall. He states he lost his balance and fell. He was in boot and had braces. Currently not in a brace or boot. He has 2 steps to get into the house, has a rail; no stairs inside the home. Hand rails only in shower, has a high rise toilet. No other injuries to his RLE. He has Afib, states gas examiner is not concerned about it. However, he has had cardioversion before several times to correct rhythm. Significant PMH for blood pressure, possible aneurysm per pt, water retention in BLE. Reports several falls overall. Pt lives with , who attended evaluation and helped provide hx Prior Treatments and Tests 04/07/24 clinic appt with referral states radiographs reveal healed fracture Prior Functional Status Baseline Function- ADL's Independent Baseline Function- Mobility Independent Baseline Function- Gait 1-2 blocks Baseline Function- Recreation/Hobbies retired: golf (hasn't done since before TKA), fishing, clam digging, hunting Current Functional Impairments (Reported) Functional Limitations- ADL's balance and pain: dressing, shoes Functional Limitations- Mobility/Gait transfers (STS) ambulation with FWW and spc Functional Limitations- Recreation/ retired: golf (hasn't done Hobbies since before TKA), fishing, clam digging, hunting wants to get yard work PT-OP-C Subjective Start: 05/16/24 10:33 Freq: Status: Active Protocol: Document 05/30/24 12:59 AB (Rec: 05/30/24 13:45 AB [id number]) OP-PT Subjective Patient Comments Patient Comments Patient reports today is so so , having left knee pain, right ankle pain. PT-OP-E Functional Tests Start: 05/16/24 10:33 Freq: Status: Active Protocol: Document 05/16/24 10:35 NM (Rec: 05/16/24 12:04 NM [id number]) Functional Tests 6 Minute Walk Test Distance 567 ft Device Used spc in L hand Comments 1 stumble w/o LOB; has R heel pain after 4 minutes Five Times Sit to Stand Test Score unable to complete due to L knee pain Comments requires 2 hand assist to rise Timed Up and Go (TUG) Score 21 seconds Comments spc in L hand (corrected height) PT-OP-F Manual Assessment Start: 05/16/24 10:33 Freq: Status: Active Protocol: Document 05/16/24 10:35 NM (Rec: 05/16/24 12:04 NM [id number]) Manual Assessments Soft Tissue Assessment Soft Tissue Mobility Assessment Increased edema in BLE, worse at ankles/dorsal feet. Limitations in B heel cord length Joint Mobility Assessment Joint Mobility Assessment No instability at R ankle or knee, but limited ray and talocrural mobility PT-OP-G Mobility & Gait Start: 05/16/24 10:33 Freq: Status: Active Protocol: Document 05/16/24 10:35 NM (Rec: 05/16/24 12:04 NM [id number]) OP Gait Assessment Gait Gait Assistance Required: Standby Assistance Distance (Feet) 150 Assistive Devices Assistive Device Gait Belt,Straight Cane Gait Deviations General Gait Pattern Decreased Stride Length, Decreased Feet Clearance,Wide Based Gait Factors Limiting Gait Function Factors Limiting Gait Function Decreased Activity Tolerance, Decreased Sensation,Limited Range of Motion,Pain,Poor Balance Comments Gait Comments Performed at beginning of evaluation. Pt demos antalgic gait and uses spc in R hand, leaning heavily on spc for assistance. Spc placed far from body. Demos B foot ER, quick heel off after weight acceptance. Wide based gait. Uses custom wood spc PT-OP-H Neuro Start: 05/16/24 10:33 Freq: Status: Active Protocol: Document 05/16/24 10:35 NM (Rec: 05/16/24 12:04 NM [id number]) Sensation Evaluation Comments Summary Comments BLE equally intact to light touch sensation PT-OP-J Posture/Palpation/Skin Start: 05/16/24 10:33 Freq: Status: Active Protocol: Document 05/16/24 10:35 NM (Rec: 05/16/24 12:04 NM [id number]) Posture Evaluation Comments Posture Comments Demos wide base stance, decreased WB on RLE Palpation Assessment Location R leg Palpation Findings Edema,Soft Tissue Tightness Palpation Details No tenderness to palpation along medial or lateral malleoli or along entire fibula from malleoli to fibular head. No tenderness along tibia. Tenderness along talocrural joint near mortise Increased edema bilaterally, especially along dorsal foot and ankle, non-pitting Skin Assessment Circumference Measurement L ankle Location figure 8: 65 cm R ankle Location figure 8: 60 cm Comments 30 cm across malleoli Other Assessments Skin Assessment Comments BLE ankle/feet skin is tight due to edema, reddened and dry /flaky PT-OP-K Range of Motion Start: 05/16/24 10:33 Freq: Status: Active Protocol: Document 05/16/24 10:35 NM (Rec: 05/16/24 12:04 NM [id number]) Knee Goniometric Range of Motion Knee Left Flexion Active (degrees) 110 Extension Active (degrees) 8 Extension Passive (degrees) 2 Comments Uncomfortable Right Flexion Active (degrees) 115 Extension Active (degrees) 2 Extension Passive (degrees) 0 Comments No pain with knee flexion but tight in anterior knee Ankle and Foot Goniometric Range of Motion Ankle and Foot Left Dorsiflexion with Knee Flexed 3 Plantarflexion 40 Inversion 20 Eversion 2 Right Dorsiflexion with Knee Flexed 3 Plantarflexion 45 Inversion 15 Eversion 2 Comments Mild pain with AROM DF, inversion PT-OP-M Strength Start: 05/16/24 10:33 Freq: Status: Active Protocol: Document 05/16/24 10:35 NM (Rec: 05/16/24 12:04 NM [id number]) Hip Strength Hip Manual Muscle Testing Left Flexion (L2) 4 Good Extension (S1) 4 Good Abduction 4 Good Adduction 4 Good External Rotation 4 Good Internal Rotation 4 Good Right Flexion (L2) 4- Good- Extension (S1) 4- Good- Abduction 4- Good- Adduction 4- Good- External Rotation 4- Good- Internal Rotation 4- Good- Comments No pain Knee Strength Knee Manual Muscle Testing Left Flexion (S2) 4 Good Extension (L3) 4 Good Comments No pain Right Flexion (S2) 4- Good- Extension (L3) 4- Good- Comments No pain Ankle/Foot Strength Ankle and Foot Manual Muscle Testing Left Dorsiflexion (L4) 4 Good Plantarflexion (S1) 4 Good Inversion 4 Good Eversion (S1) 4 Good Comments All tested in sitting (no standing PF due to time) Right Dorsiflexion (L4) 4- Good- Plantarflexion (S1) 4 Good Inversion 3+ Fair+ Eversion (S1) 3+ Fair+ Comments All tested in sitting (no standing PF due to time) PT-OP-Q Treatments Start: 05/16/24 10:33 Freq: Status: Active Protocol: Document 05/30/24 12:59 AB (Rec: 05/30/24 13:45 AB [id number]) Manual Therapy Treatment Soft Tissue Mobilization R ankle/foot Body Location calf and foot Mobilization Type Cross-Friction,Rolling Body Position Supine Joint Mobilizations R ankle/foot Joint TC AP, tib/fib AP and PA Grade II Comments supine Manual Techniques PROM DF right ankle Body Position Supine Reps/Duration 60 seconds X 3 PT-OP-T Assessment and Plan Start: 05/16/24 10:33 Freq: Status: Active Protocol: Document 05/30/24 12:59 AB (Rec: 05/30/24 13:45 AB [id number]) Physical Therapy Assessment Goals Five Impairment gait- 6 MWT distance with spc 567 ft Short Term Goal (STG) Pt will be able to ambulate using LRAD for at least 500 ft without increase in baseline pain in R ankle or L knee in order to demonstrate improved activity tolerance STG Duration 6 weeks Hvac Estimator Goal (LTG) Pt will improve 6 MWT distance using LRAD by at least 200 ft (1 MCID) in order to demonstrate improved gait speed, endurance, and BLE strength for household & community ambulation LTG Duration 12 weeks Four Impairment transfers- difficulty with sit to stand Short Term Goal (STG) Pt will be able to perform sit to stand using LRAD and at least 1 UE assist in order to stand without increase in baseline pain in order to demonstrate improved pain management and safety with transfers STG Duration 6 weeks Residential Goal (LTG) Pt will be able to perform at least 5 sit to stands from standard chair without UE assist, if appropriate, in order to demonstrate improved BLE strength for transfers and initial standing balance LTG Duration 12 weeks Three Impairment balance- TUG score 21 seconds Residential Goal (LTG) Pt will decrease TUG time using LRAD to less than 12 seconds in order to meet safe community ambulation distance/ speed in addition to improved balance to decrease fall risk LTG Duration 12 weeks Two Impairment strength- limitations in R ankle strength Residential Goal (LTG) Pt will improve R ankle global strength to at least 4/5 in order to demonstrate increased strength for gait, stability during stance, and balance during transfers LTG Duration 12 weeks One Impairment ROM- limitations in DF and eversion ROM Hvac Estimator Goal (LTG) Pt will improve R ankle dorsiflexion AROM to at least 5 deg and R ankle eversion AROM to at least 10 deg in order to demonstrate improved gait mechanics and ankle ROM for functional mobility LTG Duration 12 weeks Assessment Summary Assessment Patient advised to go to emergency room. Patient refused. Patient given today's blood pressures in writing and advised to make MD aware that BP is too high to perform exercise in physical therapy. Patient reports the ankle doesn't have much pain ambuating out of session with walking stick. Physical Therapy Plan Frequency and Duration Frequency of Treatment 2x/Week Duration of treatment (weeks) 12 Plan of Care Start Date 05/16/24 Plan of Care End Date 08/11/24 Next Visit Focus/Plan Next Note Type Treatment Note Next Visit Plan blood pressure pre and w/ activity! Review HEP if BP safe range: arch lift, resisted IV/EV/PF/ DF and self STMs planta fascia . Next: rockerboard ML & AP, glute and quad strength progress to STS from high surface with less UE support LAQ, HSC, hip abduction in sitting, ankle ROM: circles, abcs, banded 4 way, calf stretch. Foot intrinsics: short arch raise, toe ext, toe flex, marbles POC: progress to STS, leg pess , step up
--- NOTE | 2024-06-07 08:11 | PT.OTN ---
Current Diagnoses Stiffness of left knee, not elsewhere classified (06/07/24) Stiffness of right ankle, not elsewhere classified (06/07/24) Other lack of coordination (06/07/24) Weakness (06/07/24) Displaced fracture of lateral malleolus of right fibula, initial encounter for closed fracture (06/07/24) Physical Therapy Treatment Note PT-OP-A Visit Information Start: 05/16/24 10:33 Freq: Status: Active Protocol: Document 06/07/24 07:31 SP (Rec: 06/07/24 08:17 SP [id number]) Out-Patient Physical Therapy Visit Information Visit Information Visit Type Treatment Note Visit Note Vitals at arrival pre activity : BP left UE seated start of session 152/82 HR 66 . Visit Start Time 07:31 Visit Stop Time 08:11 Visit Number 6 Number of PSYCHIATRIC NURSE PRACTITIONER Visits 4 Evaluation Information Evaluation Date 05/16/24 Precautions Precautions monitor vitals w/ exercise Afib, heart disease, fall risk PT-OP-B Current Condition Start: 05/16/24 10:33 Freq: Status: Active Protocol: Document 05/16/24 10:35 NM (Rec: 05/16/24 12:04 NM [id number]) Current Condition History of Current Condition Onset Date 2-3 months ago (pt unsure of date) Current Complaints pain, transfers, mobility, gait, balance, falls History of Current Condition Pt presents with RLE pain and limited mobility following high lateral malleolus fracture. States all healed, has Xray showing healed. He reports pain with WB on RLE during transfers and gait. Using spc in R hand, uses a FWW for household. 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 He reports that he still has L knee pain (aches and shooting pain, arch pain in foot) especially with attempting to rise from a chair. Pt reports that he broke his RLE after falling in the bathroom in the middle of the night, fell against the wall. He states he lost his balance and fell. He was in boot and had braces. Currently not in a brace or boot. He has 2 steps to get into the house, has a rail; no stairs inside the home. Hand rails only in shower, has a high rise toilet. No other injuries to his RLE. 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 However, he has had cardioversion before several times to correct rhythm. Significant PMH for blood pressure, possible aneurysm per pt, water retention in BLE. Reports several falls overall. Pt lives with , who attended evaluation and helped provide hx Prior Treatments and Tests 04/07/24 clinic appt with referral states radiographs reveal healed fracture Prior Functional Status Baseline Function- ADL's Independent Baseline Function- Mobility Independent Baseline Function- Gait 1-2 blocks Baseline Function- Recreation/Hobbies retired: golf (hasn't done since before TKA), fishing, clam digging, hunting Current Functional Impairments (Reported) Functional Limitations- ADL's balance and pain: dressing, shoes Functional Limitations- Mobility/Gait transfers (STS) ambulation with FWW and spc Functional Limitations- Recreation/ retired: golf (hasn't done Hobbies since before TKA), fishing, clam digging, hunting wants to get yard work PT-OP-C Subjective Start: 05/16/24 10:33 Freq: Status: Active Protocol: Document 06/07/24 07:31 SP (Rec: 06/07/24 08:17 SP [id number]) OP-PT Subjective Patient Comments Patient Comments Pt reported BP home 135/75 and saw abrasive coating machine operator last week, was told nothing wrong with him, BP values are ok. He reports his arches still hurt more when get up L>R and hard on knees bend to low chairs. He gets delonte horses at night some times but gets up eats some mustard and goes away then back to bed. PT-OP-E Functional Tests Start: 05/16/24 10:33 Freq: Status: Active Protocol: Document 05/16/24 10:35 NM (Rec: 05/16/24 12:04 NM [id number]) Functional Tests 6 Minute Walk Test Distance 567 ft Device Used spc in L hand Comments 1 stumble w/o LOB; has R heel pain after 4 minutes Five Times Sit to Stand Test Score unable to complete due to L knee pain Comments requires 2 hand assist to rise Timed Up and Go (TUG) Score 21 seconds Comments spc in L hand (corrected height) PT-OP-F Manual Assessment Start: 05/16/24 10:33 Freq: Status: Active Protocol: Document 05/16/24 10:35 NM (Rec: 05/16/24 12:04 NM [id number]) Manual Assessments Soft Tissue Assessment Soft Tissue Mobility Assessment Increased edema in BLE, worse at ankles/dorsal feet. Limitations in B heel cord length Joint Mobility Assessment Joint Mobility Assessment No instability at R ankle or knee, but limited ray and talocrural mobility PT-OP-G Mobility & Gait Start: 05/16/24 10:33 Freq: Status: Active Protocol: Document 05/16/24 10:35 NM (Rec: 05/16/24 12:04 NM [id number]) OP Gait Assessment Gait Gait Assistance Required: Standby Assistance Distance (Feet) 150 Assistive Devices Assistive Device Gait Belt,Straight Cane Gait Deviations General Gait Pattern Decreased Stride Length, Decreased Feet Clearance,Wide Based Gait Factors Limiting Gait Function Factors Limiting Gait Function Decreased Activity Tolerance, Decreased Sensation,Limited Range of Motion,Pain,Poor Balance Comments Gait Comments Performed at beginning of evaluation. Pt demos antalgic gait and uses spc in R hand, leaning heavily on spc for assistance. Spc placed far from body. Demos B foot ER, quick heel off after weight acceptance. Wide based gait. Uses custom wood spc PT-OP-H Neuro Start: 05/16/24 10:33 Freq: Status: Active Protocol: Document 05/16/24 10:35 NM (Rec: 05/16/24 12:04 NM [id number]) Sensation Evaluation Comments Summary Comments BLE equally intact to light touch sensation PT-OP-J Posture/Palpation/Skin Start: 05/16/24 10:33 Freq: Status: Active Protocol: Document 05/16/24 10:35 NM (Rec: 05/16/24 12:04 NM [id number]) Posture Evaluation Comments Posture Comments Demos wide base stance, decreased WB on RLE Palpation Assessment Location R leg Palpation Findings Edema,Soft Tissue Tightness Palpation Details No tenderness to palpation along medial or lateral malleoli or along entire fibula from malleoli to fibular head. No tenderness along tibia. Tenderness along talocrural joint near mortise Increased edema bilaterally, especially along dorsal foot and ankle, non-pitting Skin Assessment Circumference Measurement L ankle Location figure 8: 65 cm R ankle Location figure 8: 60 cm Comments 30 cm across malleoli Other Assessments Skin Assessment Comments BLE ankle/feet skin is tight due to edema, reddened and dry /flaky PT-OP-K Range of Motion Start: 05/16/24 10:33 Freq: Status: Active Protocol: Document 05/16/24 10:35 NM (Rec: 05/16/24 12:04 NM [id number]) Knee Goniometric Range of Motion Knee Left Flexion Active (degrees) 110 Extension Active (degrees) 8 Extension Passive (degrees) 2 Comments Uncomfortable Right Flexion Active (degrees) 115 Extension Active (degrees) 2 Extension Passive (degrees) 0 Comments No pain with knee flexion but tight in anterior knee Ankle and Foot Goniometric Range of Motion Ankle and Foot Left Dorsiflexion with Knee Flexed 3 Plantarflexion 40 Inversion 20 Eversion 2 Right Dorsiflexion with Knee Flexed 3 Plantarflexion 45 Inversion 15 Eversion 2 Comments Mild pain with AROM DF, inversion PT-OP-M Strength Start: 05/16/24 10:33 Freq: Status: Active Protocol: Document 05/16/24 10:35 NM (Rec: 05/16/24 12:04 NM [id number]) Hip Strength Hip Manual Muscle Testing Left Flexion (L2) 4 Good Extension (S1) 4 Good Abduction 4 Good Adduction 4 Good External Rotation 4 Good Internal Rotation 4 Good Right Flexion (L2) 4- Good- Extension (S1) 4- Good- Abduction 4- Good- Adduction 4- Good- External Rotation 4- Good- Internal Rotation 4- Good- Comments No pain Knee Strength Knee Manual Muscle Testing Left Flexion (S2) 4 Good Extension (L3) 4 Good Comments No pain Right Flexion (S2) 4- Good- Extension (L3) 4- Good- Comments No pain Ankle/Foot Strength Ankle and Foot Manual Muscle Testing Left Dorsiflexion (L4) 4 Good Plantarflexion (S1) 4 Good Inversion 4 Good Eversion (S1) 4 Good Comments All tested in sitting (no standing PF due to time) Right Dorsiflexion (L4) 4- Good- Plantarflexion (S1) 4 Good Inversion 3+ Fair+ Eversion (S1) 3+ Fair+ Comments All tested in sitting (no standing PF due to time) PT-OP-Q Treatments Start: 05/16/24 10:33 Freq: Status: Active Protocol: Document 06/07/24 07:31 SP (Rec: 08/07/24 08:17 SP [id number]) Cardio Equipment Recumbent Elliptical (Biodex) Duration (Minutes) 4 Resistance 3 Seat Position 8 Other BLEs for ankle ROM warm up- BP 148/81 Therapeutic Exercises Sitting Exercises HS curl Sitting Exercise Name future sit<> stand Sitting Exercise Name added to HEP Equipment Used mesh chair 1-2 UE support> high table 22 no UE Reps/Minutes 5 reps each Comments cued scoot fwd, feet back, wt shift fwd LAQ Sitting Exercise Name initiated in PT- added to HEP Side bilateral Resistance AROM Equipment Used BIG chair Reps/Minutes 5 Sh x10 Comments good form, pnfree ankle dorsiflexion Sitting Exercise Name 1. heel slides 2. ankle eversion 3. ankle inversion 4. DF Side right Resistance 1. Tvl 3 2-4. lvl 2(06/07 not able increase resistance due to Lat ankle pain) Reps/Minutes 1. 20 reps 2 & 3. 2x20 Comments cued heel on floor; slight lateral ankle discomfort at end range DF ankle plantarflexion Sitting Exercise Name gas pedals- HEP reviewed Side right Resistance level 2> 3 band Reps/Minutes x20 reps each resistance Comments Cued slower eccentric control no pain, Standing Exercises calf raises Standing Exercise Name trialed in PT Side bilateral Resistance AROM Equipment Used bottom step rail support Reps/Minutes x10 Comments no pain. step ups Standing Exercise Name trialed Side bilateral Resistance AROM, Equipment Used rail support (min pressure on rail), 6 bottom step Reps/Minutes 8 reps each LE Comments painfree during ankle mobility Standing Exercise Name Initiated in PT- added to HEP Side right Resistance AROM Reps/Minutes x10 Comments pnfree Manual Therapy Treatment Soft Tissue Mobilization R ankle/foot Body Location calf and plantarfascia Mobilization Type Cross-Friction,Rolling Body Position Supine Joint Mobilizations R ankle/foot Joint TC AP, tib/fib AP and PA, MTP (forefoot) gross motor rotation Grade II Comments supine PT-OP-T Assessment and Plan Start: 05/16/24 10:33 Freq: Status: Active Protocol: Document 06/07/24 07:31 SP (Rec: 06/07/24 08:17 SP [id number]) Physical Therapy Assessment Goals Five Impairment gait- 6 MWT distance with spc 567 ft Short Term Goal (STG) Pt will be able to ambulate using LRAD for at least 500 ft without increase in baseline pain in R ankle or L knee in order to demonstrate improved activity tolerance STG Duration 6 weeks Cup Trimming Machine Operator Goal (LTG) Pt will improve 6 MWT distance using LRAD by at least 200 ft (1 MCID) in order to demonstrate improved gait speed, endurance, and BLE strength for household & community ambulation LTG Duration 12 weeks Four Impairment transfers- difficulty with sit to stand Short Term Goal (STG) Pt will be able to perform sit to stand using LRAD and at least 1 UE assist in order to stand without increase in baseline pain in order to demonstrate improved pain management and safety with transfers STG Duration 6 weeks Custodial Goal (LTG) Pt will be able to perform at least 5 sit to stands from standard chair without UE assist, if appropriate, in order to demonstrate improved BLE strength for transfers and initial standing balance LTG Duration 12 weeks Three Impairment balance- TUG score 21 seconds Custodial Goal (LTG) Pt will decrease TUG time using LRAD to less than 12 seconds in order to meet safe community ambulation distance/ speed in addition to improved balance to decrease fall risk LTG Duration 12 weeks Two Impairment strength- limitations in R ankle strength Custodial Goal (LTG) Pt will improve R ankle global strength to at least 4/5 in order to demonstrate increased strength for gait, stability during stance, and balance during transfers LTG Duration 12 weeks One Impairment ROM- limitations in DF and eversion ROM Custodial Goal (LTG) Pt will improve R ankle dorsiflexion AROM to at least 5 deg and R ankle eversion AROM to at least 10 deg in order to demonstrate improved gait mechanics and ankle ROM for functional mobility LTG Duration 12 weeks Assessment Summary Assessment Pt had improved BP pre and during activity. He tolerated ther ex well, painfree throughout. Added LAQ quad ext holds for improved ROM and progress strengthening with HO carryover home. Pt was able to progress increased resistance heel slide (press motion) but need stay Level 2 during PF & DF and IV for ankle strengthening, little discomfort if to far R ankle EV so stays within painfree range. No pain during ankle mobility on step. Before left reported L knee started feeling irritated again, comes /goes. Discussed bring HEP HOs and bands to condense if needed. Physical Therapy Plan Frequency and Duration Frequency of Treatment 2x/Week Duration of treatment (weeks) 12 Plan of Care Start Date 05/16/24 Plan of Care End Date 08/11/24 Therapeutic Interventions Therapeutic Interventions Balance Training,Gait Training ,Home Exercise Program,Joint Mobilizations,Manual Therapy, Neuromuscular Re-education, Orthotic/Prosthetic Management ,Patient/Caregiver Education, Self-Care/Home Management, Sensory Integration,Soft Tissue Mobilization,Taping, Therapeutic Activities, Therapeutic Exercises Modalities Cold Pack/Ice Massage Next Visit Focus/Plan Next Note Type Treatment Note Next Visit Plan blood pressure pre and w/ activity!!! Review HEP if BP safe range: arch lift, resisted IV/EV/PF/ DF and self STMs planta fascia , LAQ, step ups, ankle/knee mobility, calf raises. CHeck if doing calf stretches. Next progress: rockerboard ML & AP, glute and quad strength progress to STS from high surface with less UE support LAQ, HSC, hip abduction in sitting, ankle ROM: circles, abcs, banded 4 way, calf stretch. Foot intrinsics: short arch raise, toe ext, toe flex, marbles POC: progress to STS, leg pess , step up
--- NOTE | 2024-06-08 08:11 | PT.OTN ---
Current Diagnoses Stiffness of left knee, not elsewhere classified (06/07/24) Stiffness of right ankle, not elsewhere classified (06/07/24) Other lack of coordination (06/07/24) Weakness (06/07/24) Displaced fracture of lateral malleolus of right fibula, initial encounter for closed fracture (06/07/24) Physical Therapy Treatment Note PT-OP-A Visit Information Start: 05/16/24 10:33 Freq: Status: Active Protocol: Document 06/07/24 07:31 SP (Rec: 06/07/24 08:17 SP [id number]) Out-Patient Physical Therapy Visit Information Visit Information Visit Type Treatment Note Visit Note Vitals at arrival pre activity : BP left UE seated start of session 152/82 HR 66 . Visit Start Time 07:31 Visit Stop Time 08:11 Visit Number 6 Number of SAND CARRIER Visits 4 Evaluation Information Evaluation Date 05/16/24 Precautions Precautions monitor vitals w/ exercise Afib, heart disease, fall risk PT-OP-B Current Condition Start: 05/16/24 10:33 Freq: Status: Active Protocol: Document 05/16/24 10:35 NM (Rec: 05/16/24 12:04 NM [id number]) Current Condition History of Current Condition Onset Date 2-3 months ago (pt unsure of date) Current Complaints pain, transfers, mobility, gait, balance, falls History of Current Condition Pt presents with RLE pain and limited mobility following high lateral malleolus fracture. States all healed, has Xray showing healed. He reports pain with WB on RLE during transfers and gait. Using spc in R hand, uses a FWW for household. 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 He reports that he still has L knee pain (aches and shooting pain, arch pain in foot) especially with attempting to rise from a chair. Pt reports that he broke his RLE after falling in the bathroom in the middle of the night, fell against the wall. He states he lost his balance and fell. He was in boot and had braces. Currently not in a brace or boot. He has 2 steps to get into the house, has a rail; no stairs inside the home. Hand rails only in shower, has a high rise toilet. No other injuries to his RLE. He has Afib, states binding cutter is not concerned about it. However, he has had cardioversion before several times to correct rhythm. Significant PMH for blood pressure, possible aneurysm per pt, water retention in BLE. Reports several falls overall. Pt lives with , who attended evaluation and helped provide hx Prior Treatments and Tests 04/07/24 clinic appt with referral states radiographs reveal healed fracture Prior Functional Status Baseline Function- ADL's Independent Baseline Function- Mobility Independent Baseline Function- Gait 1-2 blocks Baseline Function- Recreation/Hobbies retired: golf (hasn't done since before TKA), fishing, clam digging, hunting Current Functional Impairments (Reported) Functional Limitations- ADL's balance and pain: dressing, shoes Functional Limitations- Mobility/Gait transfers (STS) ambulation with FWW and spc Functional Limitations- Recreation/ retired: golf (hasn't done Hobbies since before TKA), fishing, clam digging, hunting wants to get yard work PT-OP-C Subjective Start: 05/16/24 10:33 Freq: Status: Active Protocol: Document 06/07/24 07:31 SP (Rec: 06/07/24 08:17 SP [id number]) OP-PT Subjective Patient Comments Patient Comments Pt reported BP home 135/75 and saw binding cutter last week, was told nothing wrong with him, BP values are ok. He reports his arches still hurt more when get up L>R and hard on knees bend to low chairs. He gets delonte horses at night some times but gets up eats some mustard and goes away then back to bed. PT-OP-E Functional Tests Start: 05/16/24 10:33 Freq: Status: Active Protocol: Document 05/16/24 10:35 NM (Rec: 05/16/24 12:04 NM [id number]) Functional Tests 6 Minute Walk Test Distance 567 ft Device Used spc in L hand Comments 1 stumble w/o LOB; has R heel pain after 4 minutes Five Times Sit to Stand Test Score unable to complete due to L knee pain Comments requires 2 hand assist to rise Timed Up and Go (TUG) Score 21 seconds Comments spc in L hand (corrected height) PT-OP-F Manual Assessment Start: 05/16/24 10:33 Freq: Status: Active Protocol: Document 05/16/24 10:35 NM (Rec: 05/16/24 12:04 NM [id number]) Manual Assessments Soft Tissue Assessment Soft Tissue Mobility Assessment Increased edema in BLE, worse at ankles/dorsal feet. Limitations in B heel cord length Joint Mobility Assessment Joint Mobility Assessment No instability at R ankle or knee, but limited ray and talocrural mobility PT-OP-G Mobility & Gait Start: 05/16/24 10:33 Freq: Status: Active Protocol: Document 05/16/24 10:35 NM (Rec: 05/16/24 12:04 NM [id number]) OP Gait Assessment Gait Gait Assistance Required: Standby Assistance Distance (Feet) 150 Assistive Devices Assistive Device Gait Belt,Straight Cane Gait Deviations General Gait Pattern Decreased Stride Length, Decreased Feet Clearance,Wide Based Gait Factors Limiting Gait Function Factors Limiting Gait Function Decreased Activity Tolerance, Decreased Sensation,Limited Range of Motion,Pain,Poor Balance Comments Gait Comments Performed at beginning of evaluation. Pt demos antalgic gait and uses spc in R hand, leaning heavily on spc for assistance. Spc placed far from body. Demos B foot ER, quick heel off after weight acceptance. Wide based gait. Uses custom wood spc PT-OP-H Neuro Start: 05/16/24 10:33 Freq: Status: Active Protocol: Document 05/16/24 10:35 NM (Rec: 05/16/24 12:04 NM [id number]) Sensation Evaluation Comments Summary Comments BLE equally intact to light touch sensation PT-OP-J Posture/Palpation/Skin Start: 05/16/24 10:33 Freq: Status: Active Protocol: Document 05/16/24 10:35 NM (Rec: 05/16/24 12:04 NM [id number]) Posture Evaluation Comments Posture Comments Demos wide base stance, decreased WB on RLE Palpation Assessment Location R leg Palpation Findings Edema,Soft Tissue Tightness Palpation Details No tenderness to palpation along medial or lateral malleoli or along entire fibula from malleoli to fibular head. No tenderness along tibia. Tenderness along talocrural joint near mortise Increased edema bilaterally, especially along dorsal foot and ankle, non-pitting Skin Assessment Circumference Measurement L ankle Location figure 8: 65 cm R ankle Location figure 8: 60 cm Comments 30 cm across malleoli Other Assessments Skin Assessment Comments BLE ankle/feet skin is tight due to edema, reddened and dry /flaky PT-OP-K Range of Motion Start: 05/16/24 10:33 Freq: Status: Active Protocol: Document 05/16/24 10:35 NM (Rec: 05/16/24 12:04 NM [id number]) Knee Goniometric Range of Motion Knee Left Flexion Active (degrees) 110 Extension Active (degrees) 8 Extension Passive (degrees) 2 Comments Uncomfortable Right Flexion Active (degrees) 115 Extension Active (degrees) 2 Extension Passive (degrees) 0 Comments No pain with knee flexion but tight in anterior knee Ankle and Foot Goniometric Range of Motion Ankle and Foot Left Dorsiflexion with Knee Flexed 3 Plantarflexion 40 Inversion 20 Eversion 2 Right Dorsiflexion with Knee Flexed 3 Plantarflexion 45 Inversion 15 Eversion 2 Comments Mild pain with AROM DF, inversion PT-OP-M Strength Start: 05/16/24 10:33 Freq: Status: Active Protocol: Document 05/16/24 10:35 NM (Rec: 05/16/24 12:04 NM [id number]) Hip Strength Hip Manual Muscle Testing Left Flexion (L2) 4 Good Extension (S1) 4 Good Abduction 4 Good Adduction 4 Good External Rotation 4 Good Internal Rotation 4 Good Right Flexion (L2) 4- Good- Extension (S1) 4- Good- Abduction 4- Good- Adduction 4- Good- External Rotation 4- Good- Internal Rotation 4- Good- Comments No pain Knee Strength Knee Manual Muscle Testing Left Flexion (S2) 4 Good Extension (L3) 4 Good Comments No pain Right Flexion (S2) 4- Good- Extension (L3) 4- Good- Comments No pain Ankle/Foot Strength Ankle and Foot Manual Muscle Testing Left Dorsiflexion (L4) 4 Good Plantarflexion (S1) 4 Good Inversion 4 Good Eversion (S1) 4 Good Comments All tested in sitting (no standing PF due to time) Right Dorsiflexion (L4) 4- Good- Plantarflexion (S1) 4 Good Inversion 3+ Fair+ Eversion (S1) 3+ Fair+ Comments All tested in sitting (no standing PF due to time) PT-OP-Q Treatments Start: 05/16/24 10:33 Freq: Status: Active Protocol: Document 06/07/24 07:31 SP (Rec: 08/07/24 08:17 SP [id number]) Cardio Equipment Recumbent Elliptical (Biodex) Duration (Minutes) 4 Resistance 3 Seat Position 8 Other BLEs for ankle ROM warm up- BP 148/81 Therapeutic Exercises Sitting Exercises HS curl Sitting Exercise Name future sit<> stand Sitting Exercise Name added to HEP Equipment Used mesh chair 1-2 UE support> high table 22 no UE Reps/Minutes 5 reps each Comments cued scoot fwd, feet back, wt shift fwd LAQ Sitting Exercise Name initiated in PT- added to HEP Side bilateral Resistance AROM Equipment Used BIG chair Reps/Minutes 5 Sh x10 Comments good form, pnfree ankle dorsiflexion Sitting Exercise Name 1. heel slides 2. ankle eversion 3. ankle inversion 4. DF Side right Resistance 1. Tvl 3 2-4. lvl 2(06/07 not able increase resistance due to Lat ankle pain) Reps/Minutes 1. 20 reps 2 & 3. 2x20 Comments cued heel on floor; slight lateral ankle discomfort at end range DF ankle plantarflexion Sitting Exercise Name gas pedals- HEP reviewed Side right Resistance level 2> 3 band Reps/Minutes x20 reps each resistance Comments Cued slower eccentric control no pain, Standing Exercises calf raises Standing Exercise Name trialed in PT Side bilateral Resistance AROM Equipment Used bottom step rail support Reps/Minutes x10 Comments no pain. step ups Standing Exercise Name trialed Side bilateral Resistance AROM, Equipment Used rail support (min pressure on rail), 6 bottom step Reps/Minutes 8 reps each LE Comments painfree during ankle mobility Standing Exercise Name Initiated in PT- added to HEP Side right Resistance AROM Reps/Minutes x10 Comments pnfree Manual Therapy Treatment Soft Tissue Mobilization R ankle/foot Body Location calf and plantarfascia Mobilization Type Cross-Friction,Rolling Body Position Supine Joint Mobilizations R ankle/foot Joint TC AP, tib/fib AP and PA, MTP (forefoot) gross motor rotation Grade II Comments supine PT-OP-T Assessment and Plan Start: 05/16/24 10:33 Freq: Status: Active Protocol: Document 06/07/24 07:31 SP (Rec: 06/07/24 08:17 SP [id number]) Physical Therapy Assessment Goals Five Impairment gait- 6 MWT distance with spc 567 ft Short Term Goal (STG) Pt will be able to ambulate using LRAD for at least 500 ft without increase in baseline pain in R ankle or L knee in order to demonstrate improved activity tolerance STG Duration 6 weeks Magnaflux Operator Goal (LTG) Pt will improve 6 MWT distance using LRAD by at least 200 ft (1 MCID) in order to demonstrate improved gait speed, endurance, and BLE strength for household & community ambulation LTG Duration 12 weeks Four Impairment transfers- difficulty with sit to stand Short Term Goal (STG) Pt will be able to perform sit to stand using LRAD and at least 1 UE assist in order to stand without increase in baseline pain in order to demonstrate improved pain management and safety with transfers STG Duration 6 weeks Retirement Goal (LTG) Pt will be able to perform at least 5 sit to stands from standard chair without UE assist, if appropriate, in order to demonstrate improved BLE strength for transfers and initial standing balance LTG Duration 12 weeks Three Impairment balance- TUG score 21 seconds Retirement Goal (LTG) Pt will decrease TUG time using LRAD to less than 12 seconds in order to meet safe community ambulation distance/ speed in addition to improved balance to decrease fall risk LTG Duration 12 weeks Two Impairment strength- limitations in R ankle strength Retirement Goal (LTG) Pt will improve R ankle global strength to at least 4/5 in order to demonstrate increased strength for gait, stability during stance, and balance during transfers LTG Duration 12 weeks One Impairment ROM- limitations in DF and eversion ROM Magnaflux Operator Goal (LTG) Pt will improve R ankle dorsiflexion AROM to at least 5 deg and R ankle eversion AROM to at least 10 deg in order to demonstrate improved gait mechanics and ankle ROM for functional mobility LTG Duration 12 weeks Assessment Summary Assessment Pt had improved BP pre and during activity. He tolerated ther ex well, painfree throughout. Added LAQ quad ext holds for improved ROM and progress strengthening with HO carryover home. Pt was able to progress increased resistance heel slide (press motion) but need stay Level 2 during PF & DF and IV for ankle strengthening, little discomfort if to far R ankle EV so stays within painfree range. No pain during ankle mobility on step. Before left reported L knee started feeling irritated again, comes /goes. SAND CARRIER discussed bringing all HEP HOs and bands next tx to check if need to condense HEP. Physical Therapy Plan Frequency and Duration Frequency of Treatment 2x/Week Duration of treatment (weeks) 12 Plan of Care Start Date 05/16/24 Plan of Care End Date 08/11/24 Therapeutic Interventions Therapeutic Interventions Balance Training,Gait Training ,Home Exercise Program,Joint Mobilizations,Manual Therapy, Neuromuscular Re-education, Orthotic/Prosthetic Management ,Patient/Caregiver Education, Self-Care/Home Management, Sensory Integration,Soft Tissue Mobilization,Taping, Therapeutic Activities, Therapeutic Exercises Modalities Cold Pack/Ice Massage Next Visit Focus/Plan Next Note Type Treatment Note Next Visit Plan blood pressure pre and w/ activity!!! Review HEP if BP safe range: arch lift, resisted IV/EV/PF/ DF and self STMs planta fascia , LAQ, step ups, ankle/knee mobility, calf raises. CHeck if doing calf stretches. Next progress: rockerboard ML & AP, glute and quad strength progress to STS from high surface with less UE support LAQ, HSC, hip abduction in sitting, ankle ROM: circles, abcs, banded 4 way, calf stretch. Foot intrinsics: short arch raise, toe ext, toe flex, marbles POC: progress to STS, leg pess , step up
--- NOTE | 2024-06-15 13:00 | PT.OTN ---
Current Diagnoses Stiffness of left knee, not elsewhere classified (06/15/24) Stiffness of right ankle, not elsewhere classified (06/15/24) Other lack of coordination (06/15/24) Weakness (06/15/24) Displaced fracture of lateral malleolus of right fibula, initial encounter for closed fracture (06/15/24) Physical Therapy Treatment Note PT-OP-A Visit Information Start: 05/16/24 10:33 Freq: Status: Active Protocol: Document 06/15/24 08:20 NM (Rec: 06/15/24 08:27 NM [id number]) Out-Patient Physical Therapy Visit Information Visit Information Visit Type Progress Note Visit Start Time 08:20 Visit Stop Time 09:00 Visit Number 7 Evaluation Information Evaluation Date 05/16/24 Precautions Precautions monitor vitals w/ exercise Afib, heart disease, fall risk PT-OP-B Current Condition Start: 05/16/24 10:33 Freq: Status: Active Protocol: Document 05/16/24 10:35 NM (Rec: 05/16/24 12:04 NM [id number]) Current Condition History of Current Condition Onset Date 2-3 months ago (pt unsure of date) Current Complaints pain, transfers, mobility, gait, balance, falls History of Current Condition Pt presents with RLE pain and limited mobility following high lateral malleolus fracture. States all healed, has Xray showing healed. He reports pain with WB on RLE during transfers and gait. Using spc in R hand, uses a FWW for household. 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 He reports that he still has L knee pain (aches and shooting pain, arch pain in foot) especially with attempting to rise from a chair. Pt reports that he broke his RLE after falling in the bathroom in the middle of the night, fell against the wall. He states he lost his balance and fell. He was in boot and had braces. Currently not in a brace or boot. He has 2 steps to get into the house, has a rail; no stairs inside the home. Hand rails only in shower, has a high rise toilet. No other injuries to his RLE. 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 However, he has had cardioversion before several times to correct rhythm. Significant PMH for blood pressure, possible aneurysm per pt, water retention in BLE. Reports several falls overall. Pt lives with , who attended evaluation and helped provide hx Prior Treatments and Tests 04/07/24 clinic appt with referral states radiographs reveal healed fracture Prior Functional Status Baseline Function- ADL's Independent Baseline Function- Mobility Independent Baseline Function- Gait 1-2 blocks Baseline Function- Recreation/Hobbies retired: golf (hasn't done since before TKA), fishing, clam digging, hunting Current Functional Impairments (Reported) Functional Limitations- ADL's balance and pain: dressing, shoes Functional Limitations- Mobility/Gait transfers (STS) ambulation with FWW and spc Functional Limitations- Recreation/ retired: golf (hasn't done Hobbies since before TKA), fishing, clam digging, hunting wants to get yard work PT-OP-C Subjective Start: 05/16/24 10:33 Freq: Status: Active Protocol: Document 06/15/24 08:20 NM (Rec: 06/15/24 08:27 NM [id number]) OP-PT Subjective Patient Comments Patient Comments Pt states no change in knee, states R ankle 5/10. States pain with twisting it or pressing down with such as driving (heel pain); states does not bother him when walking except occasional jolt such as standing for a long time; occurs every day. Pt reports doing HEP every day unless it hurts, does it in the evening or the morning. Pt reports pain with eversion. PT-OP-E Functional Tests Start: 05/16/24 10:33 Freq: Status: Active Protocol: Document 05/16/24 10:35 NM (Rec: 05/16/24 12:04 NM [id number]) Functional Tests 6 Minute Walk Test Distance 567 ft Device Used spc in L hand Comments 1 stumble w/o LOB; has R heel pain after 4 minutes Five Times Sit to Stand Test Score unable to complete due to L knee pain Comments requires 2 hand assist to rise Timed Up and Go (TUG) Score 21 seconds Comments spc in L hand (corrected height) PT-OP-F Manual Assessment Start: 05/16/24 10:33 Freq: Status: Active Protocol: Document 05/16/24 10:35 NM (Rec: 05/16/24 12:04 NM [id number]) Manual Assessments Soft Tissue Assessment Soft Tissue Mobility Assessment Increased edema in BLE, worse at ankles/dorsal feet. Limitations in B heel cord length Joint Mobility Assessment Joint Mobility Assessment No instability at R ankle or knee, but limited ray and talocrural mobility PT-OP-G Mobility & Gait Start: 05/16/24 10:33 Freq: Status: Active Protocol: Document 05/16/24 10:35 NM (Rec: 05/16/24 12:04 NM [id number]) OP Gait Assessment Gait Gait Assistance Required: Standby Assistance Distance (Feet) 150 Assistive Devices Assistive Device Gait Belt,Straight Cane Gait Deviations General Gait Pattern Decreased Stride Length, Decreased Feet Clearance,Wide Based Gait Factors Limiting Gait Function Factors Limiting Gait Function Decreased Activity Tolerance, Decreased Sensation,Limited Range of Motion,Pain,Poor Balance Comments Gait Comments Performed at beginning of evaluation. Pt demos antalgic gait and uses spc in R hand, leaning heavily on spc for assistance. Spc placed far from body. Demos B foot ER, quick heel off after weight acceptance. Wide based gait. Uses custom wood spc PT-OP-H Neuro Start: 05/16/24 10:33 Freq: Status: Active Protocol: Document 05/16/24 10:35 NM (Rec: 05/16/24 12:04 NM [id number]) Sensation Evaluation Comments Summary Comments BLE equally intact to light touch sensation PT-OP-J Posture/Palpation/Skin Start: 05/16/24 10:33 Freq: Status: Active Protocol: Document 05/16/24 10:35 NM (Rec: 05/16/24 12:04 NM [id number]) Posture Evaluation Comments Posture Comments Demos wide base stance, decreased WB on RLE Palpation Assessment Location R leg Palpation Findings Edema,Soft Tissue Tightness Palpation Details No tenderness to palpation along medial or lateral malleoli or along entire fibula from malleoli to fibular head. No tenderness along tibia. Tenderness along talocrural joint near mortise Increased edema bilaterally, especially along dorsal foot and ankle, non-pitting Skin Assessment Circumference Measurement L ankle Location figure 8: 65 cm R ankle Location figure 8: 60 cm Comments 30 cm across malleoli Other Assessments Skin Assessment Comments BLE ankle/feet skin is tight due to edema, reddened and dry /flaky PT-OP-K Range of Motion Start: 05/16/24 10:33 Freq: Status: Active Protocol: Document 06/15/24 08:20 NM (Rec: 06/15/24 08:32 NM [id number]) Ankle and Foot Goniometric Range of Motion Ankle and Foot Left Dorsiflexion with Knee Flexed 3 Plantarflexion 40 Inversion 20 Eversion 2 Right Dorsiflexion with Knee Flexed 3 Plantarflexion 45 Inversion 15 Eversion 2 Comments Mild pain with AROM DF, inversion 06/15/24: 50 deg PF, 4 deg DF, 15 deg eversion, 28 deg inversion PT-OP-M Strength Start: 05/16/24 10:33 Freq: Status: Active Protocol: Document 06/15/24 08:20 NM (Rec: 06/15/24 08:32 NM [id number]) Ankle/Foot Strength Ankle and Foot Manual Muscle Testing Left Dorsiflexion (L4) 4 Good Plantarflexion (S1) 4 Good Inversion 4 Good Eversion (S1) 4 Good Comments All tested in sitting (no standing PF due to time) Right Dorsiflexion (L4) 4- Good- Plantarflexion (S1) 4 Good Inversion 3+ Fair+ Eversion (S1) 3+ Fair+ Comments All tested in sitting (no standing PF due to time) 06/15/24: 4/5 for DF, Pf, 4-/5 inv, 4/5 eversion PT-OP-Q Treatments Start: 05/16/24 10:33 Freq: Status: Active Protocol: Document 06/15/24 08:20 NM (Rec: 06/15/24 08:27 NM [id number]) Therapeutic Exercises Sitting Exercises sit<> stand Sitting Exercise Name HEP review Equipment Used high table 22 2/ 1 UE; w/ spc and 1 hand assist from chair Reps/Minutes 5 reps each position Comments cued scoot fwd, feet back, wt shift fwd; increased time LAQ Sitting Exercise Name HEP review Side bilateral Resistance AROM Equipment Used plinth Reps/Minutes 5 Sh x10 x2 sets Comments good form, pnfree Standing Exercises calf raises Standing Exercise Name HEP review Side bilateral Resistance AROM Equipment Used bottom step rail support Reps/Minutes 2x10 Comments no pain. ankle mobility Standing Exercise Name HEP review Side right Resistance AROM Equipment Used 2nd step Reps/Minutes 1. x10 (to ea toe), 2. w/ DF mobilization Post glide Comments pnfree Gait Training Gait Activity spc Distance/Duration 10 minutes Comments 1. foot clearance x200 ft- requires increased time to emphasize correct mechanics while still offloading L knee and encourage more normal stance on RLE Stepping with spc, sequencing for execution to offload L knee with spc in R hand. Emphasis on heel > toe mechanics, ankle dorsiflexion to promote better foot clearance and prevent shuffling 2. 580 ft indoors and outdoors : traversing sidewalk, carpet, curb PT provided cueing for pt for spc sequencing during curbs and for foot clearance. Emphasis on ankle DF, heel > toe with strong propulsion and upright trunk with equal WB during foot flat. Moderate cues and CGA for curb. Pt reports R ankle/heel <5/10 pain with ambulation that decreases with ambulation to 3 /10 as proceeds Manual Therapy Treatment Consent Patient gave verbal consent for manual Yes treatment Soft Tissue Mobilization R ankle/foot Body Location calf and plantarfascia, evertors Mobilization Type Cross-Friction,Rolling Intensity/Depth Superficial Body Position Supine Comments Superficial distal > proximal rolling along ankle extrinsics and gentle cross friction over plantar fascia. No tenderness along evertors or increased swelling Joint Mobilizations R ankle/foot Joint TC AP, tib/fib AP and PA, MTP (forefoot) gross motor rotation, fibula PA&AP Grade II Body Position Hooklying Comments Monitored for pain, to improve mobility during gait. Initiated fibular mobilization to improve mobility at tibiofibular joint during gait PT-OP-T Assessment and Plan Start: 05/16/24 10:33 Freq: Status: Active Protocol: Document 06/15/24 08:20 NM (Rec: 06/15/24 08:27 NM [id number]) Physical Therapy Assessment Goals Five Impairment gait- 6 MWT distance with spc 567 ft Short Term Goal (STG) Pt will be able to ambulate using LRAD for at least 500 ft without increase in baseline pain in R ankle or L knee in order to demonstrate improved activity tolerance 06/15/24: 580 ft w/ 3/10 L ankle pain (decreased in pain from 5/10) STG Duration 6 weeks Textile Science Technician Goal (LTG) Pt will improve 6 MWT distance using LRAD by at least 200 ft (1 MCID) in order to demonstrate improved gait speed, endurance, and BLE strength for household & community ambulation LTG Duration 12 weeks Four Impairment transfers- difficulty with sit to stand Short Term Goal (STG) Pt will be able to perform sit to stand using LRAD and at least 1 UE assist in order to stand without increase in baseline pain in order to demonstrate improved pain management and safety with transfers 06/15/24: Pt able to stand with LRAD and 1 hand assist, no ankle pain STG Duration 6 weeks PROGRESSING Textile Science Technician Goal (LTG) Pt will be able to perform at least 5 sit to stands from standard chair without UE assist, if appropriate, in order to demonstrate improved BLE strength for transfers and initial standing balance LTG Duration 12 weeks Three Impairment balance- TUG score 21 seconds Detention Goal (LTG) Pt will decrease TUG time using LRAD to less than 12 seconds in order to meet safe community ambulation distance/ speed in addition to improved balance to decrease fall risk LTG Duration 12 weeks Two Impairment strength- limitations in R ankle strength Detention Goal (LTG) Pt will improve R ankle global strength to at least 4/5 in order to demonstrate increased strength for gait, stability during stance, and balance during transfers 06/15/24: 4/5 for DF, Pf, 4-/5 inv, 4/5 eversion LTG Duration 12 weeks PROGRESSING One Impairment ROM- limitations in DF and eversion ROM Textile Science Technician Goal (LTG) Pt will improve R ankle dorsiflexion AROM to at least 5 deg and R ankle eversion AROM to at least 10 deg in order to demonstrate improved gait mechanics and ankle ROM for functional mobility 06/15/24: 50 deg PF, 4 deg DF, 15 deg eversion, 28 deg inversion LTG Duration 12 weeks PROGRESSING Progress Towards Goals Progress Towards Goals Progressing Toward Goals Assessment Summary Assessment Pt tolerated session fair. Reports reduction in pain symptoms with ambulation from /10 to 3/10. Pt able to ambulate curb with CGA and moderate cueing for correct execution. However, requires moderate cueing during gait to normalize mechanics and promote more equal weight bearing on RLE. Pt continues to have L knee pain that has been ongoing for over than 1 year following previous TKA. He fatigues quickly with exercise. Pt continues to have BLE weakness and is unable to perform STS from standard height without UE assist and increase in B knee pain. Pt is capable of performing from lowering surface with at least 1 hand. Pt responds well to manual treatment; trial fibular mobilizations to improve tibiofibular mobility during gait and stance. Pt requires increased time for exercises. Physical Therapy Plan Frequency and Duration Frequency of Treatment 2x/Week Duration of treatment (weeks) 12 Plan of Care Start Date 05/16/24 Plan of Care End Date 08/11/24 Therapeutic Interventions Therapeutic Interventions Balance Training,Gait Training ,Home Exercise Program,Joint Mobilizations,Manual Therapy, Neuromuscular Re-education, Orthotic/Prosthetic Management ,Patient/Caregiver Education, Self-Care/Home Management, Sensory Integration,Soft Tissue Mobilization,Taping, Therapeutic Activities, Therapeutic Exercises Modalities Cold Pack/Ice Massage Next Visit Focus/Plan Next Note Type Treatment Note Next Visit Plan blood pressure pre and w/ activity!!! Review HEP if BP safe range: arch lift, resisted IV/EV/PF/ DF and self STMs planta fascia , LAQ, step ups, ankle/knee mobility, calf raises. CHeck if doing calf stretches. Next progress: rockerboard ML & AP, glute and quad strength, trial leg press, calf stretch on SKY progress to STS from high surface with less UE support LAQ, HSC, hip abduction in sitting, ankle ROM: circles, abcs, banded 4 way, calf stretch. Foot intrinsics: short arch raise, toe ext, toe flex, marbles POC: progress to STS, leg pess , step up
--- NOTE | 2024-06-19 12:51 | PT.OTN ---
Current Diagnoses Stiffness of left knee, not elsewhere classified (06/19/24) Stiffness of right ankle, not elsewhere classified (06/19/24) Other lack of coordination (06/19/24) Weakness (06/19/24) Displaced fracture of lateral malleolus of right fibula, initial encounter for closed fracture (06/19/24) Physical Therapy Treatment Note PT-OP-A Visit Information Start: 05/16/24 10:33 Freq: Status: Active Protocol: Document 06/19/24 10:33 NM (Rec: 06/19/24 11:19 NM [id number]) Out-Patient Physical Therapy Visit Information Visit Information Visit Type Treatment Note Visit Note 11/10 post PN Visit Start Time 10:35 Visit Stop Time 11:15 Visit Number 8 Evaluation Information Evaluation Date 05/16/24 Precautions Precautions monitor vitals w/ exercise Afib, heart disease, fall risk PT-OP-B Current Condition Start: 05/16/24 10:33 Freq: Status: Active Protocol: Document 05/16/24 10:35 NM (Rec: 05/16/24 12:04 NM [id number]) Current Condition History of Current Condition Onset Date 2-3 months ago (pt unsure of date) Current Complaints pain, transfers, mobility, gait, balance, falls History of Current Condition Pt presents with RLE pain and limited mobility following high lateral malleolus fracture. States all healed, has Xray showing healed. He reports pain with WB on RLE during transfers and gait. Using spc in R hand, uses a FWW for household. 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 He reports that he still has L knee pain (aches and shooting pain, arch pain in foot) especially with attempting to rise from a chair. Pt reports that he broke his RLE after falling in the bathroom in the middle of the night, fell against the wall. He states he lost his balance and fell. He was in boot and had braces. Currently not in a brace or boot. He has 2 steps to get into the house, has a rail; no stairs inside the home. Hand rails only in shower, has a high rise toilet. No other injuries to his RLE. He has Afib, states mate fourth is not concerned about it. However, he has had cardioversion before several times to correct rhythm. Significant PMH for blood pressure, possible aneurysm per pt, water retention in BLE. Reports several falls overall. Pt lives with , who attended evaluation and helped provide hx Prior Treatments and Tests 04/07/24 clinic appt with referral states radiographs reveal healed fracture Prior Functional Status Baseline Function- ADL's Independent Baseline Function- Mobility Independent Baseline Function- Gait 1-2 blocks Baseline Function- Recreation/Hobbies retired: golf (hasn't done since before TKA), fishing, clam digging, hunting Current Functional Impairments (Reported) Functional Limitations- ADL's balance and pain: dressing, shoes Functional Limitations- Mobility/Gait transfers (STS) ambulation with FWW and spc Functional Limitations- Recreation/ retired: golf (hasn't done Hobbies since before TKA), fishing, clam digging, hunting wants to get yard work PT-OP-C Subjective Start: 05/16/24 10:33 Freq: Status: Active Protocol: Document 06/19/24 10:33 NM (Rec: 06/19/24 11:19 NM [id number]) OP-PT Subjective Patient Comments Patient Comments Pt reports L knee still bothering him quite a bit, states arch hurts after driving. R ankle is doing well, occasional heel pain with ambulation but less frequently. PT-OP-E Functional Tests Start: 05/16/24 10:33 Freq: Status: Active Protocol: Document 05/16/24 10:35 NM (Rec: 05/16/24 12:04 NM [id number]) Functional Tests 6 Minute Walk Test Distance 567 ft Device Used spc in L hand Comments 1 stumble w/o LOB; has R heel pain after 4 minutes Five Times Sit to Stand Test Score unable to complete due to L knee pain Comments requires 2 hand assist to rise Timed Up and Go (TUG) Score 21 seconds Comments spc in L hand (corrected height) PT-OP-F Manual Assessment Start: 05/16/24 10:33 Freq: Status: Active Protocol: Document 05/16/24 10:35 NM (Rec: 05/16/24 12:04 NM [id number]) Manual Assessments Soft Tissue Assessment Soft Tissue Mobility Assessment Increased edema in BLE, worse at ankles/dorsal feet. Limitations in B heel cord length Joint Mobility Assessment Joint Mobility Assessment No instability at R ankle or knee, but limited ray and talocrural mobility PT-OP-G Mobility & Gait Start: 05/16/24 10:33 Freq: Status: Active Protocol: Document 05/16/24 10:35 NM (Rec: 05/16/24 12:04 NM [id number]) OP Gait Assessment Gait Gait Assistance Required: Standby Assistance Distance (Feet) 150 Assistive Devices Assistive Device Gait Belt,Straight Cane Gait Deviations General Gait Pattern Decreased Stride Length, Decreased Feet Clearance,Wide Based Gait Factors Limiting Gait Function Factors Limiting Gait Function Decreased Activity Tolerance, Decreased Sensation,Limited Range of Motion,Pain,Poor Balance Comments Gait Comments Performed at beginning of evaluation. Pt demos antalgic gait and uses spc in R hand, leaning heavily on spc for assistance. Spc placed far from body. Demos B foot ER, quick heel off after weight acceptance. Wide based gait. Uses custom wood spc PT-OP-H Neuro Start: 05/16/24 10:33 Freq: Status: Active Protocol: Document 05/16/24 10:35 NM (Rec: 05/16/24 12:04 NM [id number]) Sensation Evaluation Comments Summary Comments BLE equally intact to light touch sensation PT-OP-J Posture/Palpation/Skin Start: 05/16/24 10:33 Freq: Status: Active Protocol: Document 05/16/24 10:35 NM (Rec: 05/16/24 12:04 NM [id number]) Posture Evaluation Comments Posture Comments Demos wide base stance, decreased WB on RLE Palpation Assessment Location R leg Palpation Findings Edema,Soft Tissue Tightness Palpation Details No tenderness to palpation along medial or lateral malleoli or along entire fibula from malleoli to fibular head. No tenderness along tibia. Tenderness along talocrural joint near mortise Increased edema bilaterally, especially along dorsal foot and ankle, non-pitting Skin Assessment Circumference Measurement L ankle Location figure 8: 65 cm R ankle Location figure 8: 60 cm Comments 30 cm across malleoli Other Assessments Skin Assessment Comments BLE ankle/feet skin is tight due to edema, reddened and dry /flaky PT-OP-K Range of Motion Start: 05/16/24 10:33 Freq: Status: Active Protocol: Document 06/15/24 08:20 NM (Rec: 06/15/24 08:32 NM [id number]) Ankle and Foot Goniometric Range of Motion Ankle and Foot Left Dorsiflexion with Knee Flexed 3 Plantarflexion 40 Inversion 20 Eversion 2 Right Dorsiflexion with Knee Flexed 3 Plantarflexion 45 Inversion 15 Eversion 2 Comments Mild pain with AROM DF, inversion 06/15/24: 50 deg PF, 4 deg DF, 15 deg eversion, 28 deg inversion PT-OP-M Strength Start: 05/16/24 10:33 Freq: Status: Active Protocol: Document 06/15/24 08:20 NM (Rec: 06/15/24 08:32 NM [id number]) Ankle/Foot Strength Ankle and Foot Manual Muscle Testing Left Dorsiflexion (L4) 4 Good Plantarflexion (S1) 4 Good Inversion 4 Good Eversion (S1) 4 Good Comments All tested in sitting (no standing PF due to time) Right Dorsiflexion (L4) 4- Good- Plantarflexion (S1) 4 Good Inversion 3+ Fair+ Eversion (S1) 3+ Fair+ Comments All tested in sitting (no standing PF due to time) 06/15/24: 4/5 for DF, Pf, 4-/5 inv, 4/5 eversion PT-OP-Q Treatments Start: 05/16/24 10:33 Freq: Status: Active Protocol: Document 06/19/24 10:33 NM (Rec: 06/19/24 11:19 NM [id number]) Therapeutic Exercises Sitting Exercises sit<> stand Sitting Exercise Name HEP review Side bilateral Equipment Used 22 plinth, 2 hand support Reps/Minutes 5 reps Comments cued scoot fwd, feet back, wt shift fwd; increased time LAQ Sitting Exercise Name HEP review Side bilateral Resistance level 3 band Equipment Used plinth Reps/Minutes 2x10 with 2 hold Comments good form, pnfree, challenging Standing Exercises side steps Standing Exercise Name HEP Side bilateral Resistance level 3 band at thighs Equipment Used with hand support on plinth Reps/Minutes 4x8ft Comments pain free, medium hard; cued neutral foot placement squat Standing Exercise Name buttock tap to elevated plinth Side bilateral Equipment Used spc in R hand (/r knee crepitus but lexus pain) Reps/Minutes 2x10 Comments pain free, tight in knees, cued wider RENÉE and more fwd placement ankle DF raises Side bilateral Equipment Used back on wall for safety Reps/Minutes 20 Comments limited ROM on L, pain free calf raises Side bilateral Equipment Used counter support BUE Reps/Minutes 20 Comments pain free step ups Standing Exercise Name re-trialed in PT Side bilateral Resistance AROM Equipment Used 4 step, w/ hand support (mild L knee pain) Reps/Minutes 10 ea Comments with cueing for push through heel, knee flexion and strong quad activation ankle mobility Side right Resistance AROM Equipment Used 2nd step Reps/Minutes 1. 2x10 (to ea toe), 2. w/ DF mobilization Post glide Comments pain free calf stretch Standing Exercise Name HEP (edu to use towel roll) Side bilateral Equipment Used SKY Reps/Minutes 2x60 Comments feels good PT-OP-T Assessment and Plan Start: 05/16/24 10:33 Freq: Status: Active Protocol: Document 06/19/24 10:33 NM (Rec: 06/19/24 11:19 NM [id number]) Physical Therapy Assessment Goals Five Impairment gait- 6 MWT distance with spc 567 ft Short Term Goal (STG) Pt will be able to ambulate using LRAD for at least 500 ft without increase in baseline pain in R ankle or L knee in order to demonstrate improved activity tolerance 06/15/24: 580 ft w/ 3/10 L ankle pain (decreased in pain from 5/10) STG Duration 6 weeks Boiler House Inspector Goal (LTG) Pt will improve 6 MWT distance using LRAD by at least 200 ft (1 MCID) in order to demonstrate improved gait speed, endurance, and BLE strength for household & community ambulation LTG Duration 12 weeks Four Impairment transfers- difficulty with sit to stand Short Term Goal (STG) Pt will be able to perform sit to stand using LRAD and at least 1 UE assist in order to stand without increase in baseline pain in order to demonstrate improved pain management and safety with transfers 06/15/24: Pt able to stand with LRAD and 1 hand assist, no ankle pain STG Duration 6 weeks PROGRESSING [employer] House Inspector Goal (LTG) Pt will be able to perform at least 5 sit to stands from standard chair without UE assist, if appropriate, in order to demonstrate improved BLE strength for transfers and initial standing balance LTG Duration 12 weeks Three Impairment balance- TUG score 21 seconds Retirement Goal (LTG) Pt will decrease TUG time using LRAD to less than 12 seconds in order to meet safe community ambulation distance/ speed in addition to improved balance to decrease fall risk LTG Duration 12 weeks Two Impairment strength- limitations in R ankle strength Boiler House Inspector Goal (LTG) Pt will improve R ankle global strength to at least 4/5 in order to demonstrate increased strength for gait, stability during stance, and balance during transfers 06/15/24: 4/5 for DF, Pf, 4-/5 inv, 4/5 eversion LTG Duration 12 weeks PROGRESSING One Impairment ROM- limitations in DF and eversion ROM Retirement Goal (LTG) Pt will improve R ankle dorsiflexion AROM to at least 5 deg and R ankle eversion AROM to at least 10 deg in order to demonstrate improved gait mechanics and ankle ROM for functional mobility 06/15/24: 50 deg PF, 4 deg DF, 15 deg eversion, 28 deg inversion LTG Duration 12 weeks PROGRESSING Assessment Summary Assessment Pt tolerated session well, reports mild B knee pain with activity. However, overall, pt reports no ankle pain with activity. To improve HEP compliance, changed standing ankle dorsiflexion to positioning with back against wall and calf raise at countertop. Progressed LAQ to level 3 band at ankles. Trialed side steps with resistance to increase glute strength; cued to maintain neutral position of foot. Pt continues to respond best to ankle dorsiflexion mobilization with posterior talocrural glide to improve talocrural mobility. Pt still requires hand support for STS, but able to progress to buttock tap from elevated surface to promote more BLE involvement. Pt would benefit from skilled PT for R ankle mobility and BLE strength in order to improve overall functional mobility and symptom management. Physical Therapy Plan Frequency and Duration Frequency of Treatment 2x/Week Duration of treatment (weeks) 12 Plan of Care Start Date 05/16/24 Plan of Care End Date 08/11/24 Therapeutic Interventions Therapeutic Interventions Balance Training,Gait Training ,Home Exercise Program,Joint Mobilizations,Manual Therapy, Neuromuscular Re-education, Orthotic/Prosthetic Management ,Patient/Caregiver Education, Self-Care/Home Management, Sensory Integration,Soft Tissue Mobilization,Taping, Therapeutic Activities, Therapeutic Exercises Modalities Cold Pack/Ice Massage Next Visit Focus/Plan Next Note Type Treatment Note Next Visit Plan blood pressure pre and w/ activity SKY calf stretch, trial leg press, buttock tap to chair ( lower elevation as able). check tolerance to LAQ band level 3, side steps, balance progress to STS from high surface with less UE support POC: progress to STS, leg pess , step up
--- NOTE | 2024-06-21 08:56 | PT.OTN ---
Current Diagnoses Stiffness of left knee, not elsewhere classified (06/21/24) Stiffness of right ankle, not elsewhere classified (06/21/24) Other lack of coordination (06/21/24) Weakness (06/21/24) Displaced fracture of lateral malleolus of right fibula, initial encounter for closed fracture (06/21/24) Physical Therapy Treatment Note PT-OP-A Visit Information Start: 05/16/24 10:33 Freq: Status: Active Protocol: Document 06/21/24 08:14 SP (Rec: 06/21/24 09:02 SP [id number]) Out-Patient Physical Therapy Visit Information Visit Information Visit Type Treatment Note Visit Note 01/08 post PN Visit Start Time 08:14 Visit Stop Time 08:56 Visit Number 9 Number of [employer] Visits 1 Evaluation Information Evaluation Date 05/16/24 Precautions Precautions monitor vitals w/ exercise Afib, heart disease, fall risk PT-OP-B Current Condition Start: 05/16/24 10:33 Freq: Status: Active Protocol: Document 05/16/24 10:35 NM (Rec: 05/16/24 12:04 NM [id number]) Current Condition History of Current Condition Onset Date 2-3 months ago (pt unsure of date) Current Complaints pain, transfers, mobility, gait, balance, falls History of Current Condition Pt presents with RLE pain and limited mobility following high lateral malleolus fracture. States all healed, has Xray showing healed. He reports pain with WB on RLE during transfers and gait. Using spc in R hand, uses a FWW for household. 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 He reports that he still has L knee pain (aches and shooting pain, arch pain in foot) especially with attempting to rise from a chair. Pt reports that he broke his RLE after falling in the bathroom in the middle of the night, fell against the wall. He states he lost his balance and fell. He was in boot and had braces. Currently not in a brace or boot. He has 2 steps to get into the house, has a rail; no stairs inside the home. Hand rails only in shower, has a high rise toilet. No other injuries to his RLE. 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 However, he has had cardioversion before several times to correct rhythm. Significant PMH for blood pressure, possible aneurysm per pt, water retention in BLE. Reports several falls overall. Pt lives with , who attended evaluation and helped provide hx Prior Treatments and Tests 04/07/24 clinic appt with referral states radiographs reveal healed fracture Prior Functional Status Baseline Function- ADL's Independent Baseline Function- Mobility Independent Baseline Function- Gait 1-2 blocks Baseline Function- Recreation/Hobbies retired: golf (hasn't done since before TKA), fishing, clam digging, hunting Current Functional Impairments (Reported) Functional Limitations- ADL's balance and pain: dressing, shoes Functional Limitations- Mobility/Gait transfers (STS) ambulation with FWW and spc Functional Limitations- Recreation/ retired: golf (hasn't done Hobbies since before TKA), fishing, clam digging, hunting wants to get yard work PT-OP-C Subjective Start: 05/16/24 10:33 Freq: Status: Active Protocol: Document 06/21/24 08:14 SP (Rec: 06/21/24 09:02 SP [id number]) OP-PT Subjective Patient Comments Patient Comments Pt reports felt good after last tx. Later a little sore but within in 30 min felt fine . Compliant with HEP. He reports is a challenge sit down and get up from community chairs with arms support it feels like really low never going to get to chair seat. PT-OP-E Functional Tests Start: 05/16/24 10:33 Freq: Status: Active Protocol: Document 05/16/24 10:35 NM (Rec: 05/16/24 12:04 NM [id number]) Functional Tests 6 Minute Walk Test Distance 567 ft Device Used spc in L hand Comments 1 stumble w/o LOB; has R heel pain after 4 minutes Five Times Sit to Stand Test Score unable to complete due to L knee pain Comments requires 2 hand assist to rise Timed Up and Go (TUG) Score 21 seconds Comments spc in L hand (corrected height) PT-OP-F Manual Assessment Start: 05/16/24 10:33 Freq: Status: Active Protocol: Document 05/16/24 10:35 NM (Rec: 05/16/24 12:04 NM [id number]) Manual Assessments Soft Tissue Assessment Soft Tissue Mobility Assessment Increased edema in BLE, worse at ankles/dorsal feet. Limitations in B heel cord length Joint Mobility Assessment Joint Mobility Assessment No instability at R ankle or knee, but limited ray and talocrural mobility PT-OP-G Mobility & Gait Start: 05/16/24 10:33 Freq: Status: Active Protocol: Document 05/16/24 10:35 NM (Rec: 05/16/24 12:04 NM [id number]) OP Gait Assessment Gait Gait Assistance Required: Standby Assistance Distance (Feet) 150 Assistive Devices Assistive Device Gait Belt,Straight Cane Gait Deviations General Gait Pattern Decreased Stride Length, Decreased Feet Clearance,Wide Based Gait Factors Limiting Gait Function Factors Limiting Gait Function Decreased Activity Tolerance, Decreased Sensation,Limited Range of Motion,Pain,Poor Balance Comments Gait Comments Performed at beginning of evaluation. Pt demos antalgic gait and uses spc in R hand, leaning heavily on spc for assistance. Spc placed far from body. Demos B foot ER, quick heel off after weight acceptance. Wide based gait. Uses custom wood spc PT-OP-H Neuro Start: 05/16/24 10:33 Freq: Status: Active Protocol: Document 05/16/24 10:35 NM (Rec: 05/16/24 12:04 NM [id number]) Sensation Evaluation Comments Summary Comments BLE equally intact to light touch sensation PT-OP-J Posture/Palpation/Skin Start: 05/16/24 10:33 Freq: Status: Active Protocol: Document 05/16/24 10:35 NM (Rec: 05/16/24 12:04 NM [id number]) Posture Evaluation Comments Posture Comments Demos wide base stance, decreased WB on RLE Palpation Assessment Location R leg Palpation Findings Edema,Soft Tissue Tightness Palpation Details No tenderness to palpation along medial or lateral malleoli or along entire fibula from malleoli to fibular head. No tenderness along tibia. Tenderness along talocrural joint near mortise Increased edema bilaterally, especially along dorsal foot and ankle, non-pitting Skin Assessment Circumference Measurement L ankle Location figure 8: 65 cm R ankle Location figure 8: 60 cm Comments 30 cm across malleoli Other Assessments Skin Assessment Comments BLE ankle/feet skin is tight due to edema, reddened and dry /flaky PT-OP-K Range of Motion Start: 05/16/24 10:33 Freq: Status: Active Protocol: Document 06/15/24 08:20 NM (Rec: 06/15/24 08:32 NM [id number]) Ankle and Foot Goniometric Range of Motion Ankle and Foot Left Dorsiflexion with Knee Flexed 3 Plantarflexion 40 Inversion 20 Eversion 2 Right Dorsiflexion with Knee Flexed 3 Plantarflexion 45 Inversion 15 Eversion 2 Comments Mild pain with AROM DF, inversion 06/15/24: 50 deg PF, 4 deg DF, 15 deg eversion, 28 deg inversion PT-OP-M Strength Start: 05/16/24 10:33 Freq: Status: Active Protocol: Document 06/15/24 08:20 NM (Rec: 06/15/24 08:32 NM [id number]) Ankle/Foot Strength Ankle and Foot Manual Muscle Testing Left Dorsiflexion (L4) 4 Good Plantarflexion (S1) 4 Good Inversion 4 Good Eversion (S1) 4 Good Comments All tested in sitting (no standing PF due to time) Right Dorsiflexion (L4) 4- Good- Plantarflexion (S1) 4 Good Inversion 3+ Fair+ Eversion (S1) 3+ Fair+ Comments All tested in sitting (no standing PF due to time) 06/15/24: 4/5 for DF, Pf, 4-/5 inv, 4/5 eversion PT-OP-Q Treatments Start: 05/16/24 10:33 Freq: Status: Active Protocol: Document 06/21/24 08:14 SP (Rec: 06/21/24 09:02 SP [id number]) Gym Equipment Shuttle Recovery unilateral squat Details blocked 90 deg flexion Resistance 37# 1 navy band Reps/Time x10 each leg painfree Edward bilateral squat Details blocked to 90 deg knee flexion - little L inside knee pain reported Resistance 50>75# 3 navy bands Shuttle Recovery Platform Stable Reps/Time 2x10 Therapeutic Exercises Sitting Exercises sit<> stand Sitting Exercise Name HEP review Side bilateral Equipment Used 22>23>22 plinth no UE support Reps/Minutes 5 reps each height surface (20 total) Comments cued scoot fwd, feet back, wt shift fwd over toes LAQ Sitting Exercise Name HEP review Side bilateral Resistance level 3 band Equipment Used plinth Reps/Minutes 2x10 with 2 hold Comments Cued for band under opp foot anchor- L knee not as strong as R Standing Exercises side steps Standing Exercise Name HEP side step, trialed fwd/bwd 06/21 Side bilateral Resistance level 3 band at thighs Equipment Used no UE support, near rail Reps/Minutes 10 ft x3 laps Comments cued neutral foot placement // fwd, hip muscle tiring, no pain ankle DF raises Standing Exercise Name HEP Side bilateral Equipment Used back on wall for safety Reps/Minutes 20 Comments limited ROM on L, pain free calf stretch Standing Exercise Name HEP (edu to use towel roll) Side bilateral Equipment Used SKY Reps/Minutes 45, 30 Comments feels good, > time causes L foot plantar fascia tension irritation PT-OP-T Assessment and Plan Start: 05/16/24 10:33 Freq: Status: Active Protocol: Document 06/21/24 08:14 SP (Rec: 06/21/24 09:02 SP [id number]) Physical Therapy Assessment Goals Five Impairment gait- 6 MWT distance with spc 567 ft Short Term Goal (STG) Pt will be able to ambulate using LRAD for at least 500 ft without increase in baseline pain in R ankle or L knee in order to demonstrate improved activity tolerance 06/15/24: 580 ft w/ 3/10 L ankle pain (decreased in pain from 10) STG Duration 6 weeks Repair Armature Winder Helper Goal (LTG) Pt will improve 6 MWT distance using LRAD by at least 200 ft (1 MCID) in order to demonstrate improved gait speed, endurance, and BLE strength for household & community ambulation LTG Duration 12 weeks Four Impairment transfers- difficulty with sit to stand Short Term Goal (STG) Pt will be able to perform sit to stand using LRAD and at least 1 UE assist in order to stand without increase in baseline pain in order to demonstrate improved pain management and safety with transfers 06/15/24: Pt able to stand with LRAD and 1 hand assist, no ankle pain STG Duration 6 weeks PROGRESSING Repair Armature Winder Helper Goal (LTG) Pt will be able to perform at least 5 sit to stands from standard chair without UE assist, if appropriate, in order to demonstrate improved BLE strength for transfers and initial standing balance LTG Duration 12 weeks Three Impairment balance- TUG score 21 seconds [facility] Goal (LTG) Pt will decrease TUG time using LRAD to less than 12 seconds in order to meet safe community ambulation distance/ speed in addition to improved balance to decrease fall risk LTG Duration 12 weeks Two Impairment strength- limitations in R ankle strength Repair Armature Winder Helper Goal (LTG) Pt will improve R ankle global strength to at least 4/5 in order to demonstrate increased strength for gait, stability during stance, and balance during transfers 06/15/24: 4/5 for DF, Pf, 4-/5 inv, 4/5 eversion LTG Duration 12 weeks PROGRESSING One Impairment ROM- limitations in DF and eversion ROM Repair Armature Winder Helper Goal (LTG) Pt will improve R ankle dorsiflexion AROM to at least 5 deg and R ankle eversion AROM to at least 10 deg in order to demonstrate improved gait mechanics and ankle ROM for functional mobility 06/15/24: 50 deg PF, 4 deg DF, 15 deg eversion, 28 deg inversion LTG Duration 12 weeks PROGRESSING Assessment Summary Assessment Pt mild L knee discomfort during Edward leg press reduction with limit 90 deg flexion, good response quad & hip tiring unilateral reported. He responds with B hip muscle tiring during resisted stepping, did not need to use UE support this tx. Was successful STS from 22 surface no UE support today, L knee pain 3rd set. Calf stretch reduction time due to L plantarfascia over tension > 30 sec. DFs tiring, limited range L>R but painfree. Good stability fwd/bwd resisted stepping no UE support but rail nearby. Physical Therapy Plan Frequency and Duration Frequency of Treatment 2x/Week Duration of treatment (weeks) 12 Plan of Care Start Date 05/16/24 Plan of Care End Date 08/11/24 Therapeutic Interventions Therapeutic Interventions Balance Training,Gait Training ,Home Exercise Program,Joint Mobilizations,Manual Therapy, Neuromuscular Re-education, Orthotic/Prosthetic Management ,Patient/Caregiver Education, Self-Care/Home Management, Sensory Integration,Soft Tissue Mobilization,Taping, Therapeutic Activities, Therapeutic Exercises Modalities Cold Pack/Ice Massage Next Visit Focus/Plan Next Note Type Treatment Note Next Visit Plan blood pressure pre and w/ activity SKY calf stretch, trial leg press, buttock tap to chair ( lower elevation as able). check tolerance to LAQ band level 3, side steps, balance progress to STS from high surface with less UE support POC: progress to STS, leg pess , step up
--- NOTE | 2024-06-21 08:56 | PT.OTN ---
Current Diagnoses Stiffness of left knee, not elsewhere classified (06/21/24) Stiffness of right ankle, not elsewhere classified (06/21/24) Other lack of coordination (06/21/24) Weakness (06/21/24) Displaced fracture of lateral malleolus of right fibula, initial encounter for closed fracture (06/21/24) Physical Therapy Treatment Note PT-OP-A Visit Information Start: 05/16/24 10:33 Freq: Status: Active Protocol: Document 06/21/24 08:14 SP (Rec: 06/21/24 09:02 SP [id number]) Out-Patient Physical Therapy Visit Information Visit Information Visit Type Treatment Note Visit Note 12/11 post PN Visit Start Time 08:14 Visit Stop Time 08:56 Visit Number 9 Number of HEALTH AND WELLNESS ADVISOR Visits 1 Evaluation Information Evaluation Date 05/16/24 Precautions Precautions monitor vitals w/ exercise Afib, heart disease, fall risk PT-OP-B Current Condition Start: 05/16/24 10:33 Freq: Status: Active Protocol: Document 05/16/24 10:35 NM (Rec: 05/16/24 12:04 NM [id number]) Current Condition History of Current Condition Onset Date 2-3 months ago (pt unsure of date) Current Complaints pain, transfers, mobility, gait, balance, falls History of Current Condition Pt presents with RLE pain and limited mobility following high lateral malleolus fracture. States all healed, has Xray showing healed. He reports pain with WB on RLE during transfers and gait. Using spc in R hand, uses a FWW for household. 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 He reports that he still has L knee pain (aches and shooting pain, arch pain in foot) especially with attempting to rise from a chair. Pt reports that he broke his RLE after falling in the bathroom in the middle of the night, fell against the wall. He states he lost his balance and fell. He was in boot and had braces. Currently not in a brace or boot. He has 2 steps to get into the house, has a rail; no stairs inside the home. Hand rails only in shower, has a high rise toilet. No other injuries to his RLE. He has Afib, states rn transition is not concerned about it. However, he has had cardioversion before several times to correct rhythm. Significant PMH for blood pressure, possible aneurysm per pt, water retention in BLE. Reports several falls overall. Pt lives with , who attended evaluation and helped provide hx Prior Treatments and Tests 04/07/24 clinic appt with referral states radiographs reveal healed fracture Prior Functional Status Baseline Function- ADL's Independent Baseline Function- Mobility Independent Baseline Function- Gait 1-2 blocks Baseline Function- Recreation/Hobbies retired: golf (hasn't done since before TKA), fishing, clam digging, hunting Current Functional Impairments (Reported) Functional Limitations- ADL's balance and pain: dressing, shoes Functional Limitations- Mobility/Gait transfers (STS) ambulation with FWW and spc Functional Limitations- Recreation/ retired: golf (hasn't done Hobbies since before TKA), fishing, clam digging, hunting wants to get yard work PT-OP-C Subjective Start: 05/16/24 10:33 Freq: Status: Active Protocol: Document 06/21/24 08:14 SP (Rec: 06/21/24 09:02 SP [id number]) OP-PT Subjective Patient Comments Patient Comments Pt reports felt good after last tx. Later a little sore but within in 30 min felt fine . Compliant with HEP. He reports is a challenge sit down and get up from community chairs with arms support it feels like really low never going to get to chair seat. PT-OP-E Functional Tests Start: 05/16/24 10:33 Freq: Status: Active Protocol: Document 05/16/24 10:35 NM (Rec: 05/16/24 12:04 NM [id number]) Functional Tests 6 Minute Walk Test Distance 567 ft Device Used spc in L hand Comments 1 stumble w/o LOB; has R heel pain after 4 minutes Five Times Sit to Stand Test Score unable to complete due to L knee pain Comments requires 2 hand assist to rise Timed Up and Go (TUG) Score 21 seconds Comments spc in L hand (corrected height) PT-OP-F Manual Assessment Start: 05/16/24 10:33 Freq: Status: Active Protocol: Document 05/16/24 10:35 NM (Rec: 05/16/24 12:04 NM [id number]) Manual Assessments Soft Tissue Assessment Soft Tissue Mobility Assessment Increased edema in BLE, worse at ankles/dorsal feet. Limitations in B heel cord length Joint Mobility Assessment Joint Mobility Assessment No instability at R ankle or knee, but limited ray and talocrural mobility PT-OP-G Mobility & Gait Start: 05/16/24 10:33 Freq: Status: Active Protocol: Document 05/16/24 10:35 NM (Rec: 05/16/24 12:04 NM [id number]) OP Gait Assessment Gait Gait Assistance Required: Standby Assistance Distance (Feet) 150 Assistive Devices Assistive Device Gait Belt,Straight Cane Gait Deviations General Gait Pattern Decreased Stride Length, Decreased Feet Clearance,Wide Based Gait Factors Limiting Gait Function Factors Limiting Gait Function Decreased Activity Tolerance, Decreased Sensation,Limited Range of Motion,Pain,Poor Balance Comments Gait Comments Performed at beginning of evaluation. Pt demos antalgic gait and uses spc in R hand, leaning heavily on spc for assistance. Spc placed far from body. Demos B foot ER, quick heel off after weight acceptance. Wide based gait. Uses custom wood spc PT-OP-H Neuro Start: 05/16/24 10:33 Freq: Status: Active Protocol: Document 05/16/24 10:35 NM (Rec: 05/16/24 12:04 NM [id number]) Sensation Evaluation Comments Summary Comments BLE equally intact to light touch sensation PT-OP-J Posture/Palpation/Skin Start: 05/16/24 10:33 Freq: Status: Active Protocol: Document 05/16/24 10:35 NM (Rec: 05/16/24 12:04 NM [id number]) Posture Evaluation Comments Posture Comments Demos wide base stance, decreased WB on RLE Palpation Assessment Location R leg Palpation Findings Edema,Soft Tissue Tightness Palpation Details No tenderness to palpation along medial or lateral malleoli or along entire fibula from malleoli to fibular head. No tenderness along tibia. Tenderness along talocrural joint near mortise Increased edema bilaterally, especially along dorsal foot and ankle, non-pitting Skin Assessment Circumference Measurement L ankle Location figure 8: 65 cm R ankle Location figure 8: 60 cm Comments 30 cm across malleoli Other Assessments Skin Assessment Comments BLE ankle/feet skin is tight due to edema, reddened and dry /flaky PT-OP-K Range of Motion Start: 05/16/24 10:33 Freq: Status: Active Protocol: Document 06/15/24 08:20 NM (Rec: 06/15/24 08:32 NM [id number]) Ankle and Foot Goniometric Range of Motion Ankle and Foot Left Dorsiflexion with Knee Flexed 3 Plantarflexion 40 Inversion 20 Eversion 2 Right Dorsiflexion with Knee Flexed 3 Plantarflexion 45 Inversion 15 Eversion 2 Comments Mild pain with AROM DF, inversion 06/15/24: 50 deg PF, 4 deg DF, 15 deg eversion, 28 deg inversion PT-OP-M Strength Start: 05/16/24 10:33 Freq: Status: Active Protocol: Document 06/15/24 08:20 NM (Rec: 06/15/24 08:32 NM [id number]) Ankle/Foot Strength Ankle and Foot Manual Muscle Testing Left Dorsiflexion (L4) 4 Good Plantarflexion (S1) 4 Good Inversion 4 Good Eversion (S1) 4 Good Comments All tested in sitting (no standing PF due to time) Right Dorsiflexion (L4) 4- Good- Plantarflexion (S1) 4 Good Inversion 3+ Fair+ Eversion (S1) 3+ Fair+ Comments All tested in sitting (no standing PF due to time) 06/15/24: 4/5 for DF, Pf, 4-/5 inv, 4/5 eversion PT-OP-Q Treatments Start: 05/16/24 10:33 Freq: Status: Active Protocol: Document 06/21/24 08:14 SP (Rec: 06/21/24 09:02 SP [id number]) Gym Equipment Shuttle Recovery unilateral squat Details blocked 90 deg flexion Resistance 37# 1 navy band Reps/Time x10 each leg painfree Edward bilateral squat Details blocked to 90 deg knee flexion - little L inside knee pain reported Resistance 50>75# 3 navy bands Shuttle Recovery Platform Stable Reps/Time 2x10 Therapeutic Exercises Sitting Exercises sit<> stand Sitting Exercise Name HEP review Side bilateral Equipment Used 22>23>22 plinth no UE support Reps/Minutes 5 reps each height surface (20 total) Comments cued scoot fwd, feet back, wt shift fwd over toes LAQ Sitting Exercise Name HEP review Side bilateral Resistance level 3 band Equipment Used plinth Reps/Minutes 2x10 with 2 hold Comments Cued for band under opp foot anchor- L knee not as strong as R Standing Exercises side steps Standing Exercise Name HEP side step, trialed fwd/bwd 06/21 Side bilateral Resistance level 3 band at thighs Equipment Used no UE support, near rail Reps/Minutes 10 ft x3 laps Comments cued neutral foot placement // fwd, hip muscle tiring, no pain ankle DF raises Standing Exercise Name HEP Side bilateral Equipment Used back on wall for safety Reps/Minutes 20 Comments limited ROM on L, pain free calf stretch Standing Exercise Name HEP (edu to use towel roll) Side bilateral Equipment Used SKY Reps/Minutes 45, 30 Comments feels good, > time causes L foot plantar fascia tension irritation PT-OP-T Assessment and Plan Start: 05/16/24 10:33 Freq: Status: Active Protocol: Document 06/21/24 08:14 SP (Rec: 06/21/24 09:02 SP [id number]) Physical Therapy Assessment Goals Five Impairment gait- 6 MWT distance with spc 567 ft Short Term Goal (STG) Pt will be able to ambulate using LRAD for at least 500 ft without increase in baseline pain in R ankle or L knee in order to demonstrate improved activity tolerance 06/15/24: 580 ft w/ 3/10 L ankle pain (decreased in pain from 10) STG Duration 6 weeks Tubing Drier Goal (LTG) Pt will improve 6 MWT distance using LRAD by at least 200 ft (1 MCID) in order to demonstrate improved gait speed, endurance, and BLE strength for household & community ambulation LTG Duration 12 weeks Four Impairment transfers- difficulty with sit to stand Short Term Goal (STG) Pt will be able to perform sit to stand using LRAD and at least 1 UE assist in order to stand without increase in baseline pain in order to demonstrate improved pain management and safety with transfers 06/15/24: Pt able to stand with LRAD and 1 hand assist, no ankle pain STG Duration 6 weeks PROGRESSING Tubing Drier Goal (LTG) Pt will be able to perform at least 5 sit to stands from standard chair without UE assist, if appropriate, in order to demonstrate improved BLE strength for transfers and initial standing balance LTG Duration 12 weeks Three Impairment balance- TUG score 21 seconds Penitentiary Goal (LTG) Pt will decrease TUG time using LRAD to less than 12 seconds in order to meet safe community ambulation distance/ speed in addition to improved balance to decrease fall risk LTG Duration 12 weeks Two Impairment strength- limitations in R ankle strength Tubing Drier Goal (LTG) Pt will improve R ankle global strength to at least 4/5 in order to demonstrate increased strength for gait, stability during stance, and balance during transfers 06/15/24: 4/5 for DF, Pf, 4-/5 inv, 4/5 eversion LTG Duration 12 weeks PROGRESSING One Impairment ROM- limitations in DF and eversion ROM Tubing Drier Goal (LTG) Pt will improve R ankle dorsiflexion AROM to at least 5 deg and R ankle eversion AROM to at least 10 deg in order to demonstrate improved gait mechanics and ankle ROM for functional mobility 06/15/24: 50 deg PF, 4 deg DF, 15 deg eversion, 28 deg inversion LTG Duration 12 weeks PROGRESSING Assessment Summary Assessment Pt mild L knee discomfort during Edward leg press reduction with limit 90 deg flexion, good response quad & hip tiring unilateral reported. He responds with B hip muscle tiring during resisted stepping, did not need to use UE support this tx. Was successful STS from 22 surface no UE support today, L knee pain 3rd set. Calf stretch reduction time due to L plantarfascia over tension > 30 sec. DFs tiring, limited range L>R but painfree. Good stability fwd/bwd resisted stepping no UE support but rail nearby. Physical Therapy Plan Frequency and Duration Frequency of Treatment 2x/Week Duration of treatment (weeks) 12 Plan of Care Start Date 05/16/24 Plan of Care End Date 08/11/24 Therapeutic Interventions Therapeutic Interventions Balance Training,Gait Training ,Home Exercise Program,Joint Mobilizations,Manual Therapy, Neuromuscular Re-education, Orthotic/Prosthetic Management ,Patient/Caregiver Education, Self-Care/Home Management, Sensory Integration,Soft Tissue Mobilization,Taping, Therapeutic Activities, Therapeutic Exercises Modalities Cold Pack/Ice Massage Next Visit Focus/Plan Next Note Type Treatment Note Next Visit Plan blood pressure pre and w/ activity SKY calf stretch, trial leg press, buttock tap to chair ( lower elevation as able). check tolerance to LAQ band level 3, side steps, balance progress to STS from high surface with less UE support POC: progress to STS, leg pess , step up
--- NOTE | 2024-06-26 09:00 | PT.OTN ---
Current Diagnoses Stiffness of left knee, not elsewhere classified (06/26/24) Stiffness of right ankle, not elsewhere classified (06/26/24) Other lack of coordination (06/26/24) Weakness (06/26/24) Displaced fracture of lateral malleolus of right fibula, initial encounter for closed fracture (06/26/24) Physical Therapy Treatment Note PT-OP-A Visit Information Start: 05/16/24 10:33 Freq: Status: Active Protocol: Document 06/26/24 08:17 SP (Rec: 06/26/24 09:03 SP [id number]) Out-Patient Physical Therapy Visit Information Visit Information Visit Type Treatment Note Visit Note 01/08 post PN Visit Start Time 08:17 Visit Stop Time 09:00 Visit Number 10 Number of DISPOSAL OPERATOR Visits 2 Evaluation Information Evaluation Date 05/16/24 Precautions Precautions monitor vitals w/ exercise Afib, heart disease, fall risk PT-OP-B Current Condition Start: 05/16/24 10:33 Freq: Status: Active Protocol: Document 05/16/24 10:35 NM (Rec: 05/16/24 12:04 NM [id number]) Current Condition History of Current Condition Onset Date 2-3 months ago (pt unsure of date) Current Complaints pain, transfers, mobility, gait, balance, falls History of Current Condition Pt presents with RLE pain and limited mobility following high lateral malleolus fracture. States all healed, has Xray showing healed. He reports pain with WB on RLE during transfers and gait. Using spc in R hand, uses a FWW for household. 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 He reports that he still has L knee pain (aches and shooting pain, arch pain in foot) especially with attempting to rise from a chair. Pt reports that he broke his RLE after falling in the bathroom in the middle of the night, fell against the wall. He states he lost his balance and fell. He was in boot and had braces. Currently not in a brace or boot. He has 2 steps to get into the house, has a rail; no stairs inside the home. Hand rails only in shower, has a high rise toilet. No other injuries to his RLE. 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 However, he has had cardioversion before several times to correct rhythm. Significant PMH for blood pressure, possible aneurysm per pt, water retention in BLE. Reports several falls overall. Pt lives with , who attended evaluation and helped provide hx Prior Treatments and Tests 04/07/24 clinic appt with referral states radiographs reveal healed fracture Prior Functional Status Baseline Function- ADL's Independent Baseline Function- Mobility Independent Baseline Function- Gait 1-2 blocks Baseline Function- Recreation/Hobbies retired: golf (hasn't done since before TKA), fishing, clam digging, hunting Current Functional Impairments (Reported) Functional Limitations- ADL's balance and pain: dressing, shoes Functional Limitations- Mobility/Gait transfers (STS) ambulation with FWW and spc Functional Limitations- Recreation/ retired: golf (hasn't done Hobbies since before TKA), fishing, clam digging, hunting wants to get yard work PT-OP-C Subjective Start: 05/16/24 10:33 Freq: Status: Active Protocol: Document 06/26/24 08:17 SP (Rec: 06/26/24 09:03 SP [id number]) OP-PT Subjective Patient Comments Patient Comments Pt reports still getting pain in B arches of feet when get up than radiates on R to top of foot. L knee still has pain . Arrives with HOs and bands. PT-OP-E Functional Tests Start: 05/16/24 10:33 Freq: Status: Active Protocol: Document 05/16/24 10:35 NM (Rec: 05/16/24 12:04 NM [id number]) Functional Tests 6 Minute Walk Test Distance 567 ft Device Used spc in L hand Comments 1 stumble w/o LOB; has R heel pain after 4 minutes Five Times Sit to Stand Test Score unable to complete due to L knee pain Comments requires 2 hand assist to rise Timed Up and Go (TUG) Score 21 seconds Comments spc in L hand (corrected height) PT-OP-F Manual Assessment Start: 05/16/24 10:33 Freq: Status: Active Protocol: Document 05/16/24 10:35 NM (Rec: 05/16/24 12:04 NM [id number]) Manual Assessments Soft Tissue Assessment Soft Tissue Mobility Assessment Increased edema in BLE, worse at ankles/dorsal feet. Limitations in B heel cord length Joint Mobility Assessment Joint Mobility Assessment No instability at R ankle or knee, but limited ray and talocrural mobility PT-OP-G Mobility & Gait Start: 05/16/24 10:33 Freq: Status: Active Protocol: Document 05/16/24 10:35 NM (Rec: 05/16/24 12:04 NM [id number]) OP Gait Assessment Gait Gait Assistance Required: Standby Assistance Distance (Feet) 150 Assistive Devices Assistive Device Gait Belt,Straight Cane Gait Deviations General Gait Pattern Decreased Stride Length, Decreased Feet Clearance,Wide Based Gait Factors Limiting Gait Function Factors Limiting Gait Function Decreased Activity Tolerance, Decreased Sensation,Limited Range of Motion,Pain,Poor Balance Comments Gait Comments Performed at beginning of evaluation. Pt demos antalgic gait and uses spc in R hand, leaning heavily on spc for assistance. Spc placed far from body. Demos B foot ER, quick heel off after weight acceptance. Wide based gait. Uses custom wood spc PT-OP-H Neuro Start: 05/16/24 10:33 Freq: Status: Active Protocol: Document 05/16/24 10:35 NM (Rec: 05/16/24 12:04 NM [id number]) Sensation Evaluation Comments Summary Comments BLE equally intact to light touch sensation PT-OP-J Posture/Palpation/Skin Start: 05/16/24 10:33 Freq: Status: Active Protocol: Document 05/16/24 10:35 NM (Rec: 05/16/24 12:04 NM [id number]) Posture Evaluation Comments Posture Comments Demos wide base stance, decreased WB on RLE Palpation Assessment Location R leg Palpation Findings Edema,Soft Tissue Tightness Palpation Details No tenderness to palpation along medial or lateral malleoli or along entire fibula from malleoli to fibular head. No tenderness along tibia. Tenderness along talocrural joint near mortise Increased edema bilaterally, especially along dorsal foot and ankle, non-pitting Skin Assessment Circumference Measurement L ankle Location figure 8: 65 cm R ankle Location figure 8: 60 cm Comments 30 cm across malleoli Other Assessments Skin Assessment Comments BLE ankle/feet skin is tight due to edema, reddened and dry /flaky PT-OP-K Range of Motion Start: 05/16/24 10:33 Freq: Status: Active Protocol: Document 06/15/24 08:20 NM (Rec: 06/15/24 08:32 NM [id number]) Ankle and Foot Goniometric Range of Motion Ankle and Foot Left Dorsiflexion with Knee Flexed 3 Plantarflexion 40 Inversion 20 Eversion 2 Right Dorsiflexion with Knee Flexed 3 Plantarflexion 45 Inversion 15 Eversion 2 Comments Mild pain with AROM DF, inversion 06/15/24: 50 deg PF, 4 deg DF, 15 deg eversion, 28 deg inversion PT-OP-M Strength Start: 05/16/24 10:33 Freq: Status: Active Protocol: Document 06/15/24 08:20 NM (Rec: 06/15/24 08:32 NM [id number]) Ankle/Foot Strength Ankle and Foot Manual Muscle Testing Left Dorsiflexion (L4) 4 Good Plantarflexion (S1) 4 Good Inversion 4 Good Eversion (S1) 4 Good Comments All tested in sitting (no standing PF due to time) Right Dorsiflexion (L4) 4- Good- Plantarflexion (S1) 4 Good Inversion 3+ Fair+ Eversion (S1) 3+ Fair+ Comments All tested in sitting (no standing PF due to time) 06/15/24: 4/5 for DF, Pf, 4-/5 inv, 4/5 eversion PT-OP-Q Treatments Start: 05/16/24 10:33 Freq: Status: Active Protocol: Document 06/26/24 08:17 SP (Rec: 06/26/24 09:03 SP [id number]) Gym Equipment Shuttle Recovery unilateral squat Details blocked 90 deg flexion Resistance 37# 1 navy band- still tiring chalenge Reps/Time x15 each leg painfree range Edward bilateral squat Details blocked to 90 deg knee flexion , cued control eccentric- pnfree 06/26 Resistance 75# 3 navy bands Shuttle Recovery Platform Stable Reps/Time 2x15 Therapeutic Exercises Sitting Exercises sit<> stand Sitting Exercise Name HEP review Side bilateral Equipment Used 22>21>20> trialed but unable 19 plinth no UE support Reps/Minutes 5 reps each height surface Comments cued scoot fwd, feet back, wt shift fwd over toes LAQ Sitting Exercise Name HEP review Side bilateral Resistance level 3 band Equipment Used plinth Reps/Minutes 2x15 with 2 hold Comments Cued for band under opp foot anchor- L knee not as strong as R arch lift Sitting Exercise Name AROM MTPs and tarsals into flex/ext over ball Side bilateral Equipment Used foot over bouncy ball Reps/Minutes x10 reps, rolling 5 reps gentle plantarfascia Comments reports ok if light pressure, more foot mobility Standing Exercises calf raises Side bilateral Equipment Used SKY, B rail support Reps/Minutes 20 rock wt shift each LE Comments pain free step ups Standing Exercise Name re-trialed in PT- repeated each side Side bilateral Resistance AROM Equipment Used 4>6 step, w/ 1hand support (reports L mild 5/10 knee discomfort) Reps/Minutes 15 ea Comments with cueing for push through heel, knee flexion and strong quad activation Manual Therapy Treatment Consent Patient gave verbal consent for manual Yes treatment Soft Tissue Mobilization R ankle/foot Body Location R>L Comments Plantar fascia Joint Mobilizations L knee Joint tib femoral APs in various range flexion Grade II Body Position Hooklying Comments pnfree reported R ankle/foot Joint TC AP, tib/fib AP and PA, MTP (forefoot) gross motor rotation, fibula PA&AP Direction R>L Grade II Body Position Hooklying Comments Monitored for pain, to improve mobility during gait. Initiated fibular mobilization to improve mobility at tibiofibular joint during gait Manual Techniques PROM DF right ankle Type R Body Position Supine Neuro Re-Education Treatment Balance Activities hurdles Details trialed in PT for funcational ankle, hip, knee AROM, bal Comments fwd step to, redirection not use rail unless has to able to but is unsure of his stability. PT-OP-T Assessment and Plan Start: 05/16/24 10:33 Freq: Status: Active Protocol: Document 06/26/24 08:17 SP (Rec: 06/26/24 09:03 SP [id number]) Physical Therapy Assessment Goals Five Impairment gait- 6 MWT distance with spc 567 ft Short Term Goal (STG) Pt will be able to ambulate using LRAD for at least 500 ft without increase in baseline pain in R ankle or L knee in order to demonstrate improved activity tolerance 06/15/24: 580 ft w/ 3/10 L ankle pain (decreased in pain from 5/10) STG Duration 6 weeks Wire Mesh Filter Fabricator Goal (LTG) Pt will improve 6 MWT distance using LRAD by at least 200 ft (1 MCID) in order to demonstrate improved gait speed, endurance, and BLE strength for household & community ambulation LTG Duration 12 weeks Four Impairment transfers- difficulty with sit to stand Short Term Goal (STG) Pt will be able to perform sit to stand using LRAD and at least 1 UE assist in order to stand without increase in baseline pain in order to demonstrate improved pain management and safety with transfers 06/15/24: Pt able to stand with LRAD and 1 hand assist, no ankle pain STG Duration 6 weeks PROGRESSING Group Home Goal (LTG) Pt will be able to perform at least 5 sit to stands from standard chair without UE assist, if appropriate, in order to demonstrate improved BLE strength for transfers and initial standing balance LTG Duration 12 weeks Three Impairment balance- TUG score 21 seconds Group Home Goal (LTG) Pt will decrease TUG time using LRAD to less than 12 seconds in order to meet safe community ambulation distance/ speed in addition to improved balance to decrease fall risk LTG Duration 12 weeks Two Impairment strength- limitations in R ankle strength Wire Mesh Filter Fabricator Goal (LTG) Pt will improve R ankle global strength to at least 4/5 in order to demonstrate increased strength for gait, stability during stance, and balance during transfers 06/15/24: 4/5 for DF, Pf, 4-/5 inv, 4/5 eversion LTG Duration 12 weeks PROGRESSING One Impairment ROM- limitations in DF and eversion ROM Group Home Goal (LTG) Pt will improve R ankle dorsiflexion AROM to at least 5 deg and R ankle eversion AROM to at least 10 deg in order to demonstrate improved gait mechanics and ankle ROM for functional mobility 06/15/24: 50 deg PF, 4 deg DF, 15 deg eversion, 28 deg inversion LTG Duration 12 weeks PROGRESSING Assessment Summary Assessment Pt tolerated ther ex well after manual. Was able to increase reps in all exercises and increase height step ups 6 this tx. Trialed MTP and tarsal flexion over ball to provide self AROM and rolling to decreased plantar fascia tightness and increase ankle mobiltiy with slight improvement reported during standing activities. Pt was able to progress STS from lower surface 20 today compared to 22 last tx with out UE support. GOod response to leg press today, painfree reports >90deg range. Physical Therapy Plan Frequency and Duration Frequency of Treatment 2x/Week Duration of treatment (weeks) 12 Plan of Care Start Date 05/16/24 Plan of Care End Date 08/11/24 Therapeutic Interventions Therapeutic Interventions Balance Training,Gait Training ,Home Exercise Program,Joint Mobilizations,Manual Therapy, Neuromuscular Re-education, Orthotic/Prosthetic Management ,Patient/Caregiver Education, Self-Care/Home Management, Sensory Integration,Soft Tissue Mobilization,Taping, Therapeutic Activities, Therapeutic Exercises Modalities Cold Pack/Ice Massage Next Visit Focus/Plan Next Note Type Treatment Note Next Visit Plan blood pressure pre and w/ activity SKY calf stretch, trial leg press, buttock tap to chair ( lower elevation as able). check tolerance to LAQ band level 3, side steps, balance progress to STS from high surface with less UE support POC: progress to STS, leg pess , step up
--- NOTE | 2024-06-28 09:00 | PT.OTN ---
Current Diagnoses Stiffness of left knee, not elsewhere classified (06/28/24) Stiffness of right ankle, not elsewhere classified (06/28/24) Other lack of coordination (06/28/24) Weakness (06/28/24) Displaced fracture of lateral malleolus of right fibula, initial encounter for closed fracture (06/28/24) Physical Therapy Treatment Note PT-OP-A Visit Information Start: 05/16/24 10:33 Freq: Status: Active Protocol: Document 06/28/24 08:15 SP (Rec: 06/28/24 09:03 SP [id number]) Out-Patient Physical Therapy Visit Information Visit Information Visit Type Treatment Note Visit Note 02/08 post PN Visit Start Time 08:15 Visit Stop Time 09:00 Visit Number 11 Number of PHOTOGRAPHER FINISH Visits 3 Evaluation Information Evaluation Date 05/16/24 Precautions Precautions monitor vitals w/ exercise Afib, heart disease, fall risk PT-OP-B Current Condition Start: 05/16/24 10:33 Freq: Status: Active Protocol: Document 05/16/24 10:35 NM (Rec: 05/16/24 12:04 NM [id number]) Current Condition History of Current Condition Onset Date 2-3 months ago (pt unsure of date) Current Complaints pain, transfers, mobility, gait, balance, falls History of Current Condition Pt presents with RLE pain and limited mobility following high lateral malleolus fracture. States all healed, has Xray showing healed. He reports pain with WB on RLE during transfers and gait. Using spc in R hand, uses a FWW for household. 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 He reports that he still has L knee pain (aches and shooting pain, arch pain in foot) especially with attempting to rise from a chair. Pt reports that he broke his RLE after falling in the bathroom in the middle of the night, fell against the wall. He states he lost his balance and fell. He was in boot and had braces. Currently not in a brace or boot. He has 2 steps to get into the house, has a rail; no stairs inside the home. Hand rails only in shower, has a high rise toilet. No other injuries to his RLE. 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 However, he has had cardioversion before several times to correct rhythm. Significant PMH for blood pressure, possible aneurysm per pt, water retention in BLE. Reports several falls overall. Pt lives with , who attended evaluation and helped provide hx Prior Treatments and Tests 04/07/24 clinic appt with referral states radiographs reveal healed fracture Prior Functional Status Baseline Function- ADL's Independent Baseline Function- Mobility Independent Baseline Function- Gait 1-2 blocks Baseline Function- Recreation/Hobbies retired: golf (hasn't done since before TKA), fishing, clam digging, hunting Current Functional Impairments (Reported) Functional Limitations- ADL's balance and pain: dressing, shoes Functional Limitations- Mobility/Gait transfers (STS) ambulation with FWW and spc Functional Limitations- Recreation/ retired: golf (hasn't done Hobbies since before TKA), fishing, clam digging, hunting wants to get yard work PT-OP-C Subjective Start: 05/16/24 10:33 Freq: Status: Active Protocol: Document 06/28/24 08:15 SP (Rec: 06/28/24 09:03 SP [id number]) OP-PT Subjective Patient Comments Patient Comments Pt reports felt ok after last tx but later in the evening arches of feet started hurting . 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 He demonstrates decreased stance time BLEs and more WB into cane in RUE due to pain in B feet plantar fascia. His L lateral quad really tight bothersome too. Pt has seen a Lighting Engineering Technician in the past. Has follow up appt with general physician in 2-3 weeks [place]. PT-OP-E Functional Tests Start: 05/16/24 10:33 Freq: Status: Active Protocol: Document 05/16/24 10:35 NM (Rec: 05/16/24 12:04 NM [id number]) Functional Tests 6 Minute Walk Test Distance 567 ft Device Used spc in L hand Comments 1 stumble w/o LOB; has R heel pain after 4 minutes Five Times Sit to Stand Test Score unable to complete due to L knee pain Comments requires 2 hand assist to rise Timed Up and Go (TUG) Score 21 seconds Comments spc in L hand (corrected height) PT-OP-F Manual Assessment Start: 05/16/24 10:33 Freq: Status: Active Protocol: Document 05/16/24 10:35 NM (Rec: 05/16/24 12:04 NM [id number]) Manual Assessments Soft Tissue Assessment Soft Tissue Mobility Assessment Increased edema in BLE, worse at ankles/dorsal feet. Limitations in B heel cord length Joint Mobility Assessment Joint Mobility Assessment No instability at R ankle or knee, but limited ray and talocrural mobility PT-OP-G Mobility & Gait Start: 05/16/24 10:33 Freq: Status: Active Protocol: Document 05/16/24 10:35 NM (Rec: 05/16/24 12:04 NM [id number]) OP Gait Assessment Gait Gait Assistance Required: Standby Assistance Distance (Feet) 150 Assistive Devices Assistive Device Gait Belt,Straight Cane Gait Deviations General Gait Pattern Decreased Stride Length, Decreased Feet Clearance,Wide Based Gait Factors Limiting Gait Function Factors Limiting Gait Function Decreased Activity Tolerance, Decreased Sensation,Limited Range of Motion,Pain,Poor Balance Comments Gait Comments Performed at beginning of evaluation. Pt demos antalgic gait and uses spc in R hand, leaning heavily on spc for assistance. Spc placed far from body. Demos B foot ER, quick heel off after weight acceptance. Wide based gait. Uses custom wood spc PT-OP-H Neuro Start: 05/16/24 10:33 Freq: Status: Active Protocol: Document 05/16/24 10:35 NM (Rec: 05/16/24 12:04 NM [id number]) Sensation Evaluation Comments Summary Comments BLE equally intact to light touch sensation PT-OP-J Posture/Palpation/Skin Start: 05/16/24 10:33 Freq: Status: Active Protocol: Document 05/16/24 10:35 NM (Rec: 05/16/24 12:04 NM [id number]) Posture Evaluation Comments Posture Comments Demos wide base stance, decreased WB on RLE Palpation Assessment Location R leg Palpation Findings Edema,Soft Tissue Tightness Palpation Details No tenderness to palpation along medial or lateral malleoli or along entire fibula from malleoli to fibular head. No tenderness along tibia. Tenderness along talocrural joint near mortise Increased edema bilaterally, especially along dorsal foot and ankle, non-pitting Skin Assessment Circumference Measurement L ankle Location figure 8: 65 cm R ankle Location figure 8: 60 cm Comments 30 cm across malleoli Other Assessments Skin Assessment Comments BLE ankle/feet skin is tight due to edema, reddened and dry /flaky PT-OP-K Range of Motion Start: 05/16/24 10:33 Freq: Status: Active Protocol: Document 06/15/24 08:20 NM (Rec: 06/15/24 08:32 NM [id number]) Ankle and Foot Goniometric Range of Motion Ankle and Foot Left Dorsiflexion with Knee Flexed 3 Plantarflexion 40 Inversion 20 Eversion 2 Right Dorsiflexion with Knee Flexed 3 Plantarflexion 45 Inversion 15 Eversion 2 Comments Mild pain with AROM DF, inversion 06/15/24: 50 deg PF, 4 deg DF, 15 deg eversion, 28 deg inversion PT-OP-M Strength Start: 05/16/24 10:33 Freq: Status: Active Protocol: Document 06/15/24 08:20 NM (Rec: 06/15/24 08:32 NM [id number]) Ankle/Foot Strength Ankle and Foot Manual Muscle Testing Left Dorsiflexion (L4) 4 Good Plantarflexion (S1) 4 Good Inversion 4 Good Eversion (S1) 4 Good Comments All tested in sitting (no standing PF due to time) Right Dorsiflexion (L4) 4- Good- Plantarflexion (S1) 4 Good Inversion 3+ Fair+ Eversion (S1) 3+ Fair+ Comments All tested in sitting (no standing PF due to time) 06/15/24: 4/5 for DF, Pf, 4-/5 inv, 4/5 eversion PT-OP-Q Treatments Start: 05/16/24 10:33 Freq: Status: Active Protocol: Document 06/28/24 08:15 SP (Rec: 06/28/24 09:03 SP [id number]) Therapeutic Exercises Sitting Exercises sit<> stand Sitting Exercise Name HEP review Side bilateral Equipment Used trialed mesh chair and foam 20 total Reps/Minutes 3 reps pain in L knee- stopped Comments need use heavy BUEs LAQ Sitting Exercise Name HEP review Side bilateral Resistance level 3 band (good challenge still) Equipment Used mesh chair Reps/Minutes 2x15 with 2 hold Comments L knee discomfort ankle AROM Sitting Exercise Name PF, DF, EV- reviewed HEP Side bilateral Resistance TB #2 Reps/Minutes 2x10 each Comments -7/10 pain in L ankle during EV, Standing Exercises side steps Standing Exercise Name HEP side step, trialed fwd/bwd 06/21 Side bilateral Resistance level 3 band at thighs Equipment Used no UE support, near rail Reps/Minutes 10 ft x3 laps Comments cued neutral foot placement // fwd, hip muscle tiring, no pain ankle DF raises Standing Exercise Name HEP Side bilateral Equipment Used back on wall for safety Reps/Minutes 20 Comments limited ROM on L, pain free calf raises Side bilateral Equipment Used SKY, B rail support Reps/Minutes 20 rock wt shift (fwd/bwd) Comments pain free step ups Standing Exercise Name step up/back down repeated same leg then switch- HEP reviewed Side bilateral Resistance AROM Equipment Used 6 step, 1 HR opp LE leading Reps/Minutes 10 reps each Comments with cueing for push through heel, knee flexion and strong quad activation ankle mobility Standing Exercise Name reviewed HEP Side right Resistance AROM Equipment Used 1st step, B HR support Reps/Minutes 10 Comments pain reported in R ankle when in back position calf stretch Standing Exercise Name HEP (edu to use towel roll) Side bilateral Equipment Used SKY, rail support Reps/Minutes 10 SH x10 reps Comments feels good, > time causes L foot plantar fascia tension irritation Manual Therapy Treatment Consent Patient gave verbal consent for manual Yes treatment Soft Tissue Mobilization L leg Body Location L quad, ITB more distal> proximal Mobilization Type Cross-Friction,Rolling Intensity/Depth Moderate Comments manual R ankle/foot Body Location R>L Mobilization Type Myofascial Release,Rolling Comments Plantar fascia Joint Mobilizations L knee Joint tib femoral APs in various range flexion Grade II Body Position Hooklying Comments pnfree reported R ankle/foot Joint TC AP, tib/fib AP and PA, MTP (forefoot) gross motor rotation, fibula PA&AP Direction R>L Grade II Body Position Hooklying Comments Monitored for pain, to improve ankle mobility during gait. PT-OP-T Assessment and Plan Start: 05/16/24 10:33 Freq: Status: Active Protocol: Document 06/28/24 08:15 SP (Rec: 06/28/24 09:03 SP [id number]) Physical Therapy Assessment Goals Five Impairment gait- 6 MWT distance with spc 567 ft Short Term Goal (STG) Pt will be able to ambulate using LRAD for at least 500 ft without increase in baseline pain in R ankle or L knee in order to demonstrate improved activity tolerance 06/15/24: 580 ft w/ 3/10 L ankle pain (decreased in pain from 03/10) STG Duration 6 weeks Graduate Advisor Goal (LTG) Pt will improve 6 MWT distance using LRAD by at least 200 ft (1 MCID) in order to demonstrate improved gait speed, endurance, and BLE strength for household & community ambulation LTG Duration 12 weeks Four Impairment transfers- difficulty with sit to stand Short Term Goal (STG) Pt will be able to perform sit to stand using LRAD and at least 1 UE assist in order to stand without increase in baseline pain in order to demonstrate improved pain management and safety with transfers 06/15/24: Pt able to stand with LRAD and 1 hand assist, no ankle pain STG Duration 6 weeks PROGRESSING Graduate Advisor Goal (LTG) Pt will be able to perform at least 5 sit to stands from standard chair without UE assist, if appropriate, in order to demonstrate improved BLE strength for transfers and initial standing balance LTG Duration 12 weeks Three Impairment balance- TUG score 21 seconds Half-Way Goal (LTG) Pt will decrease TUG time using LRAD to less than 12 seconds in order to meet safe community ambulation distance/ speed in addition to improved balance to decrease fall risk LTG Duration 12 weeks Two Impairment strength- limitations in R ankle strength Graduate Advisor Goal (LTG) Pt will improve R ankle global strength to at least 4/5 in order to demonstrate increased strength for gait, stability during stance, and balance during transfers 06/15/24: 4/5 for DF, Pf, 4-/5 inv, 4/5 eversion LTG Duration 12 weeks PROGRESSING One Impairment ROM- limitations in DF and eversion ROM Half-Way Goal (LTG) Pt will improve R ankle dorsiflexion AROM to at least 5 deg and R ankle eversion AROM to at least 10 deg in order to demonstrate improved gait mechanics and ankle ROM for functional mobility 06/15/24: 50 deg PF, 4 deg DF, 15 deg eversion, 28 deg inversion LTG Duration 12 weeks PROGRESSING Assessment Summary Assessment Pt reports decreased muscle tension in L quad and around R ankle, B plantarfascia with manual STMs. No pain with resisted ankle ther ex and good effort L quad during LAQ. Continue to have pain B plantar fascia today more than usual. PHOTOGRAPHER FINISH and PT discussed calling Lighting Engineering Technician and general practioner to discuss pain experiencing and have follow up appt, if he thinks possible Polymyalgia flare up /coming back, may need med assist to allow funcitonal mobility. Physical Therapy Plan Frequency and Duration Frequency of Treatment 2x/Week Duration of treatment (weeks) 12 Plan of Care Start Date 05/16/24 Plan of Care End Date 08/11/24 Therapeutic Interventions Therapeutic Interventions Balance Training,Gait Training ,Home Exercise Program,Joint Mobilizations,Manual Therapy, Neuromuscular Re-education, Orthotic/Prosthetic Management ,Patient/Caregiver Education, Self-Care/Home Management, Sensory Integration,Soft Tissue Mobilization,Taping, Therapeutic Activities, Therapeutic Exercises Modalities Cold Pack/Ice Massage Next Visit Focus/Plan Next Note Type Treatment Note Next Visit Plan blood pressure pre and w/ activity SKY calf stretch, trial leg press, buttock tap to chair ( lower elevation as able). check tolerance to LAQ band level 3, side steps, balance progress to STS from high surface with less UE support POC: progress to STS, leg pess , step up
--- NOTE | 2024-07-05 09:22 | PT.OTN ---
Current Diagnoses Stiffness of left knee, not elsewhere classified (07/05/24) Stiffness of right ankle, not elsewhere classified (07/05/24) Other lack of coordination (07/05/24) Weakness (07/05/24) Displaced fracture of lateral malleolus of right fibula, initial encounter for closed fracture (07/05/24) Physical Therapy Treatment Note PT-OP-A Visit Information Start: 05/16/24 10:33 Freq: Status: Active Protocol: Document 07/05/24 08:17 NM (Rec: 07/05/24 09:02 NM [id number]) Out-Patient Physical Therapy Visit Information Visit Information Visit Type Treatment Note Visit Note 03/10 post PN Visit Start Time 08:21 Visit Stop Time 09:00 Visit Number 12 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 States all healed, has Xray showing healed. He reports pain with WB on RLE during transfers and gait. Using spc in R hand, uses a FWW for household. 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 He reports that he still has L knee pain (aches and shooting pain, arch pain in foot) especially with attempting to rise from a chair. Pt reports that he broke his RLE after falling in the bathroom in the middle of the night, fell against the wall. He states he lost his balance and fell. He was in boot and had braces. Currently not in a brace or boot. He has 2 steps to get into the house, has a rail; no stairs inside the home. Hand rails only in shower, has a high rise toilet. No other injuries to his RLE. 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 However, he has had cardioversion before several times to correct rhythm. Significant PMH for blood pressure, possible aneurysm per pt, water retention in BLE. Reports several falls overall. Pt lives with , who attended evaluation and helped provide hx Prior Treatments and Tests 04/07/24 clinic appt with referral states radiographs reveal healed fracture Prior Functional Status Baseline Function- ADL's Independent Baseline Function- Mobility Independent Baseline Function- Gait 1-2 blocks Baseline Function- Recreation/Hobbies retired: golf (hasn't done since before TKA), fishing, clam digging, hunting Current Functional Impairments (Reported) Functional Limitations- ADL's balance and pain: dressing, shoes Functional Limitations- Mobility/Gait transfers (STS) ambulation with FWW and spc Functional Limitations- Recreation/ retired: golf (hasn't done Hobbies since before TKA), fishing, clam digging, hunting wants to get yard work PT-OP-C Subjective Start: 05/16/24 10:33 Freq: Status: Active Protocol: Document 07/05/24 08:17 NM (Rec: 07/05/24 09:02 NM [id number]) OP-PT Subjective Patient Comments Patient Comments Pt made an appt with rheumatology but not until Aug . Pt reports that his knee still bites him a little but overall ankle is doing well and has minimal arch pain except with driving. PT-OP-E Functional Tests Start: 05/16/24 10:33 Freq: Status: Active Protocol: Document 05/16/24 10:35 NM (Rec: 05/16/24 12:04 NM [id number]) Functional Tests 6 Minute Walk Test Distance 567 ft Device Used spc in L hand Comments 1 stumble w/o LOB; has R heel pain after 4 minutes Five Times Sit to Stand Test Score unable to complete due to L knee pain Comments requires 2 hand assist to rise Timed Up and Go (TUG) Score 21 seconds Comments spc in L hand (corrected height) PT-OP-F Manual Assessment Start: 05/16/24 10:33 Freq: Status: Active Protocol: Document 05/16/24 10:35 NM (Rec: 05/16/24 12:04 NM [id number]) Manual Assessments Soft Tissue Assessment Soft Tissue Mobility Assessment Increased edema in BLE, worse at ankles/dorsal feet. Limitations in B heel cord length Joint Mobility Assessment Joint Mobility Assessment No instability at R ankle or knee, but limited ray and talocrural mobility PT-OP-G Mobility & Gait Start: 05/16/24 10:33 Freq: Status: Active Protocol: Document 05/16/24 10:35 NM (Rec: 05/16/24 12:04 NM [id number]) OP Gait Assessment Gait Gait Assistance Required: Standby Assistance Distance (Feet) 150 Assistive Devices Assistive Device Gait Belt,Straight Cane Gait Deviations General Gait Pattern Decreased Stride Length, Decreased Feet Clearance,Wide Based Gait Factors Limiting Gait Function Factors Limiting Gait Function Decreased Activity Tolerance, Decreased Sensation,Limited Range of Motion,Pain,Poor Balance Comments Gait Comments Performed at beginning of evaluation. Pt demos antalgic gait and uses spc in R hand, leaning heavily on spc for assistance. Spc placed far from body. Demos B foot ER, quick heel off after weight acceptance. Wide based gait. Uses custom wood spc PT-OP-H Neuro Start: 05/16/24 10:33 Freq: Status: Active Protocol: Document 05/16/24 10:35 NM (Rec: 05/16/24 12:04 NM [id number]) Sensation Evaluation Comments Summary Comments BLE equally intact to light touch sensation PT-OP-J Posture/Palpation/Skin Start: 05/16/24 10:33 Freq: Status: Active Protocol: Document 05/16/24 10:35 NM (Rec: 05/16/24 12:04 NM [id number]) Posture Evaluation Comments Posture Comments Demos wide base stance, decreased WB on RLE Palpation Assessment Location R leg Palpation Findings Edema,Soft Tissue Tightness Palpation Details No tenderness to palpation along medial or lateral malleoli or along entire fibula from malleoli to fibular head. No tenderness along tibia. Tenderness along talocrural joint near mortise Increased edema bilaterally, especially along dorsal foot and ankle, non-pitting Skin Assessment Circumference Measurement L ankle Location figure 8: 65 cm R ankle Location figure 8: 60 cm Comments 30 cm across malleoli Other Assessments Skin Assessment Comments BLE ankle/feet skin is tight due to edema, reddened and dry /flaky PT-OP-K Range of Motion Start: 05/16/24 10:33 Freq: Status: Active Protocol: Document 06/15/24 08:20 NM (Rec: 06/15/24 08:32 NM [id number]) Ankle and Foot Goniometric Range of Motion Ankle and Foot Left Dorsiflexion with Knee Flexed 3 Plantarflexion 40 Inversion 20 Eversion 2 Right Dorsiflexion with Knee Flexed 3 Plantarflexion 45 Inversion 15 Eversion 2 Comments Mild pain with AROM DF, inversion 06/15/24: 50 deg PF, 4 deg DF, 15 deg eversion, 28 deg inversion PT-OP-M Strength Start: 05/16/24 10:33 Freq: Status: Active Protocol: Document 06/15/24 08:20 NM (Rec: 06/15/24 08:32 NM [id number]) Ankle/Foot Strength Ankle and Foot Manual Muscle Testing Left Dorsiflexion (L4) 4 Good Plantarflexion (S1) 4 Good Inversion 4 Good Eversion (S1) 4 Good Comments All tested in sitting (no standing PF due to time) Right Dorsiflexion (L4) 4- Good- Plantarflexion (S1) 4 Good Inversion 3+ Fair+ Eversion (S1) 3+ Fair+ Comments All tested in sitting (no standing PF due to time) 06/15/24: 4/5 for DF, Pf, 4-/5 inv, 4/5 eversion PT-OP-Q Treatments Start: 05/16/24 10:33 Freq: Status: Active Protocol: Document 07/05/24 08:17 NM (Rec: 07/05/24 09:02 NM [id number]) Therapeutic Exercises Sitting Exercises foot intrinsics Sitting Exercise Name 1. arch raise, 2. toe flexion, 3. toe extension Side right Reps/Minutes 1. 10 w/ tactile cue, 2. 10, 3 . 10 Comments cueing for correct execution Standing Exercises hip 3 way Side bilateral Resistance level 2 band at thighs Equipment Used 1 hand support for balance Reps/Minutes 10 ea Comments good control and upright posture; cued neutral foot positioning ankle DF raises Standing Exercise Name HEP review Side bilateral Equipment Used back on wall for safety Reps/Minutes 20 Comments limited ROM on L, pain free; cued for slight wt shift to improve form calf raises Side bilateral Equipment Used 4 step, B rail support Reps/Minutes 20 Comments pain free rocker board Standing Exercise Name performed in seated: A/P Side right Reps/Minutes 60 ea Comments feels in ant ankle near mortise Manual Therapy Treatment Consent Patient gave verbal consent for manual Yes treatment Soft Tissue Mobilization R ankle/foot Body Location R plantar fascia, peroneals, anterior ankle, tibialis ant/ EHL Mobilization Type Myofascial Release,Rolling Intensity/Depth Superficial Body Position Hooklying Comments Monitored for pain Joint Mobilizations R ankle/foot Joint TC AP, tib/fib AP and PA, MTP (forefoot) gross motor rotation, fibula PA&AP Direction R Grade II Body Position Hooklying Comments Monitored for pain, to improve ankle mobility during gait. Mild tenderness near distal fibula with mobilization but denies pain PT-OP-T Assessment and Plan Start: 05/16/24 10:33 Freq: Status: Active Protocol: Document 07/05/24 08:17 NM (Rec: 07/05/24 09:02 NM [id number]) Physical Therapy Assessment Goals Five Impairment gait- 6 MWT distance with spc 567 ft Short Term Goal (STG) Pt will be able to ambulate using LRAD for at least 500 ft without increase in baseline pain in R ankle or L knee in order to demonstrate improved activity tolerance 06/15/24: 580 ft w/ 3/10 L ankle pain (decreased in pain from 5/10) STG Duration 6 weeks Fci Goal (LTG) Pt will improve 6 MWT distance using LRAD by at least 200 ft (1 MCID) in order to demonstrate improved gait speed, endurance, and BLE strength for household & community ambulation LTG Duration 12 weeks Four Impairment transfers- difficulty with sit to stand Short Term Goal (STG) Pt will be able to perform sit to stand using LRAD and at least 1 UE assist in order to stand without increase in baseline pain in order to demonstrate improved pain management and safety with transfers 06/15/24: Pt able to stand with LRAD and 1 hand assist, no ankle pain STG Duration 6 weeks PROGRESSING Fci Goal (LTG) Pt will be able to perform at least 5 sit to stands from standard chair without UE assist, if appropriate, in order to demonstrate improved BLE strength for transfers and initial standing balance LTG Duration 12 weeks Three Impairment balance- TUG score 21 seconds Tow Driver Goal (LTG) Pt will decrease TUG time using LRAD to less than 12 seconds in order to meet safe community ambulation distance/ speed in addition to improved balance to decrease fall risk LTG Duration 12 weeks Two Impairment strength- limitations in R ankle strength Tow Driver Goal (LTG) Pt will improve R ankle global strength to at least 4/5 in order to demonstrate increased strength for gait, stability during stance, and balance during transfers 06/15/24: 4/5 for DF, Pf, 4-/5 inv, 4/5 eversion LTG Duration 12 weeks PROGRESSING One Impairment ROM- limitations in DF and eversion ROM Tow Driver Goal (LTG) Pt will improve R ankle dorsiflexion AROM to at least 5 deg and R ankle eversion AROM to at least 10 deg in order to demonstrate improved gait mechanics and ankle ROM for functional mobility 06/15/24: 50 deg PF, 4 deg DF, 15 deg eversion, 28 deg inversion LTG Duration 12 weeks PROGRESSING Assessment Summary Assessment Pt tolerated session well. He does report slight irritation of R low back with hip 3 way exercise, reduced with cueing for correct execution and slightly limited ROM. Pt has difficulty with activating foot instrinsic muscles, which influence pain symptoms when driving and ambulating. He does report discomfort at dorsal foot and ankle mortise with sagittal ankle ROM; however, denies pain and feelings of discomfort are reduced with ankle mobilization. Continues to have difficulty with standing ankle dorsiflexion at wall, challenging for pt but ready for progression from seated with band. Progressed to hip [address] with band for global hip and trunk strengthening to provide improved proximal stability for improved ankle stability. Pt would benefit from skilled PT for progressive BLe strengthening and R ankle mobility in order to improve activity tolerance and improve functional mobility/independence. Physical Therapy Plan Frequency and Duration Frequency of Treatment 2x/Week Duration of treatment (weeks) 12 Plan of Care Start Date 05/16/24 Plan of Care End Date 08/11/24 Therapeutic Interventions Therapeutic Interventions Balance Training,Gait Training ,Home Exercise Program,Joint Mobilizations,Manual Therapy, Neuromuscular Re-education, Orthotic/Prosthetic Management ,Patient/Caregiver Education, Self-Care/Home Management, Sensory Integration,Soft Tissue Mobilization,Taping, Therapeutic Activities, Therapeutic Exercises Modalities Cold Pack/Ice Massage Next Visit Focus/Plan Next Note Type Progress Note Next Visit Plan blood pressure pre and w/ activity leg press, hip 3 way review and tolerance, SKY calf stretch, trial leg press- single and double leg, buttock tap to chair (lower elevation as able). check tolerance to LAQ band level 3, side steps, balance progress to STS from high surface with less UE support POC: progress to STS, leg pess , step up
--- NOTE | 2024-07-12 12:58 | PT.OTN ---
Current Diagnoses Stiffness of left knee, not elsewhere classified (07/12/24) Stiffness of right ankle, not elsewhere classified (07/12/24) Other lack of coordination (07/12/24) Weakness (07/12/24) Displaced fracture of lateral malleolus of right fibula, initial encounter for closed fracture (07/12/24) Physical Therapy Treatment Note PT-OP-A Visit Information Start: 05/16/24 10:33 Freq: Status: Active Protocol: Document 07/12/24 08:12 NM (Rec: 07/12/24 09:02 NM [id number]) Out-Patient Physical Therapy Visit Information Visit Information Visit Type Progress Note Visit Start Time 08:17 Visit Stop Time 08:57 Visit Number 13 Evaluation Information Evaluation Date 05/16/24 Precautions Precautions monitor vitals w/ exercise Afib, heart disease, fall risk PT-OP-B Current Condition Start: 05/16/24 10:33 Freq: Status: Active Protocol: Document 05/16/24 10:35 NM (Rec: 05/16/24 12:04 NM [id number]) Current Condition History of Current Condition Onset Date 2-3 months ago (pt unsure of date) Current Complaints pain, transfers, mobility, gait, balance, falls History of Current Condition Pt presents with RLE pain and limited mobility following high lateral malleolus fracture. States all healed, has Xray showing healed. He reports pain with WB on RLE during transfers and gait. Using spc in R hand, uses a FWW for household. 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 He reports that he still has L knee pain (aches and shooting pain, arch pain in foot) especially with attempting to rise from a chair. Pt reports that he broke his RLE after falling in the bathroom in the middle of the night, fell against the wall. He states he lost his balance and fell. He was in boot and had braces. Currently not in a brace or boot. He has 2 steps to get into the house, has a rail; no stairs inside the home. Hand rails only in shower, has a high rise toilet. No other injuries to his RLE. 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 However, he has had cardioversion before several times to correct rhythm. Significant PMH for blood pressure, possible aneurysm per pt, water retention in BLE. Reports several falls overall. Pt lives with , who attended evaluation and helped provide hx Prior Treatments and Tests 04/07/24 clinic appt with referral states radiographs reveal healed fracture Prior Functional Status Baseline Function- ADL's Independent Baseline Function- Mobility Independent Baseline Function- Gait 1-2 blocks Baseline Function- Recreation/Hobbies retired: golf (hasn't done since before TKA), fishing, clam digging, hunting Current Functional Impairments (Reported) Functional Limitations- ADL's balance and pain: dressing, shoes Functional Limitations- Mobility/Gait transfers (STS) ambulation with FWW and spc Functional Limitations- Recreation/ retired: golf (hasn't done Hobbies since before TKA), fishing, clam digging, hunting wants to get yard work PT-OP-C Subjective Start: 05/16/24 10:33 Freq: Status: Active Protocol: Document 07/12/24 08:12 NM (Rec: 07/12/24 09:02 NM [id number]) OP-PT Subjective Patient Comments Patient Comments Pt continues to reports R dorsal/lateral foot pain. He states is arch also hurts when he is sitting for a long period of time. Pt reports that he is possibly a little better because he can be on his feet more. He mowed the lawn (riding mower) and stood in the lawn. His L knee is still the main limiting factor . He reports that his R ankle still hurts a little above the break site; states not severe but 6/10 pain, states only with driving, standing, or walking. PT-OP-E Functional Tests Start: 05/16/24 10:33 Freq: Status: Active Protocol: Document 05/16/24 10:35 NM (Rec: 05/16/24 12:04 NM [id number]) Functional Tests 6 Minute Walk Test Distance 567 ft Device Used spc in L hand Comments 1 stumble w/o LOB; has R heel pain after 4 minutes Five Times Sit to Stand Test Score unable to complete due to L knee pain Comments requires 2 hand assist to rise Timed Up and Go (TUG) Score 21 seconds Comments spc in L hand (corrected height) PT-OP-F Manual Assessment Start: 05/16/24 10:33 Freq: Status: Active Protocol: Document 05/16/24 10:35 NM (Rec: 05/16/24 12:04 NM [id number]) Manual Assessments Soft Tissue Assessment Soft Tissue Mobility Assessment Increased edema in BLE, worse at ankles/dorsal feet. Limitations in B heel cord length Joint Mobility Assessment Joint Mobility Assessment No instability at R ankle or knee, but limited ray and talocrural mobility PT-OP-G Mobility & Gait Start: 05/16/24 10:33 Freq: Status: Active Protocol: Document 05/16/24 10:35 NM (Rec: 05/16/24 12:04 NM [id number]) OP Gait Assessment Gait Gait Assistance Required: Standby Assistance Distance (Feet) 150 Assistive Devices Assistive Device Gait Belt,Straight Cane Gait Deviations General Gait Pattern Decreased Stride Length, Decreased Feet Clearance,Wide Based Gait Factors Limiting Gait Function Factors Limiting Gait Function Decreased Activity Tolerance, Decreased Sensation,Limited Range of Motion,Pain,Poor Balance Comments Gait Comments Performed at beginning of evaluation. Pt demos antalgic gait and uses spc in R hand, leaning heavily on spc for assistance. Spc placed far from body. Demos B foot ER, quick heel off after weight acceptance. Wide based gait. Uses custom wood spc PT-OP-H Neuro Start: 05/16/24 10:33 Freq: Status: Active Protocol: Document 05/16/24 10:35 NM (Rec: 05/16/24 12:04 NM [id number]) Sensation Evaluation Comments Summary Comments BLE equally intact to light touch sensation PT-OP-J Posture/Palpation/Skin Start: 05/16/24 10:33 Freq: Status: Active Protocol: Document 05/16/24 10:35 NM (Rec: 05/16/24 12:04 NM [id number]) Posture Evaluation Comments Posture Comments Demos wide base stance, decreased WB on RLE Palpation Assessment Location R leg Palpation Findings Edema,Soft Tissue Tightness Palpation Details No tenderness to palpation along medial or lateral malleoli or along entire fibula from malleoli to fibular head. No tenderness along tibia. Tenderness along talocrural joint near mortise Increased edema bilaterally, especially along dorsal foot and ankle, non-pitting Skin Assessment Circumference Measurement L ankle Location figure 8: 65 cm R ankle Location figure 8: 60 cm Comments 30 cm across malleoli Other Assessments Skin Assessment Comments BLE ankle/feet skin is tight due to edema, reddened and dry /flaky PT-OP-K Range of Motion Start: 05/16/24 10:33 Freq: Status: Active Protocol: Document 07/12/24 08:12 NM (Rec: 07/12/24 09:02 NM [id number]) Ankle and Foot Goniometric Range of Motion Ankle and Foot Right Dorsiflexion with Knee Flexed 3 Plantarflexion 45 Inversion 15 Eversion 2 Comments IE: 0 deg DF, 45 deg PF, 15 deg inv, 2 deg ev; Mild pain with AROM DF, inversion 06/15/24: 50 deg PF, 4 deg DF, 15 deg eversion, 28 deg inversion 07/12/24: 5 deg DF, 50 deg PF, 15 deg everesion, 28 deg inversion PT-OP-M Strength Start: 05/16/24 10:33 Freq: Status: Active Protocol: Document 07/12/24 08:12 NM (Rec: 07/12/24 09:02 NM [id number]) Hip Strength Hip Manual Muscle Testing Left Flexion (L2) 4 Good Extension (S1) 4 Good Abduction 4 Good Adduction 4 Good External Rotation 4 Good Internal Rotation 4 Good Right Flexion (L2) 4- Good- Extension (S1) 4- Good- Abduction 4- Good- Adduction 4- Good- External Rotation 4- Good- Internal Rotation 4- Good- Comments No pain Knee Strength Knee Manual Muscle Testing Left Flexion (S2) 4 Good Extension (L3) 4 Good Comments No pain Right Flexion (S2) 4- Good- Extension (L3) 4- Good- Comments No pain Ankle/Foot Strength Ankle and Foot Manual Muscle Testing Left Dorsiflexion (L4) 4 Good Plantarflexion (S1) 4 Good Inversion 4 Good Eversion (S1) 4 Good Comments All tested in sitting (no standing PF due to time) Right Dorsiflexion (L4) 4- Good- Plantarflexion (S1) 4 Good Inversion 3+ Fair+ Eversion (S1) 3+ Fair+ Comments All tested in sitting (no standing PF due to time) 06/15/24: 4/5 for DF, Pf, 4-/5 inv, 4/5 eversion 07/12/24: 4/5 for DF/EV/PF ( sitting), 4-/5 for inv (pain w / resisted inv at lateral malleolus) PT-OP-Q Treatments Start: 05/16/24 10:33 Freq: Status: Active Protocol: Document 07/12/24 08:12 NM (Rec: 07/12/24 09:02 NM [id number]) Gym Equipment Shuttle Recovery unilateral squat Resistance 62# (2 navy) Reps/Time 2x15 Therapeutic Exercises Sitting Exercises sit<> stand Sitting Exercise Name 1. 1 hand assist, 2. no UE assist Side bilateral Equipment Used 21 table, hands in front Reps/Minutes 1. 5, 2. 10 Comments edu to keep feet in front of pt ankle AROM Sitting Exercise Name Eversion, inversion (HEP review-issued new HO) Side right Resistance level 2 band Reps/Minutes 2x10 (ev and inv pain free) Comments cueing for correct exec w/ eversion to prevent hip ABD/ER Standing Exercises ankle mobility Standing Exercise Name great toe ext mobility Side right Resistance AROM Equipment Used spc for support Reps/Minutes 20 Manual Therapy Treatment Consent Patient gave verbal consent for manual Yes treatment Soft Tissue Mobilization R ankle/foot Body Location R plantar fascia, peroneals, anterior ankle, tibialis ant/ EHL Mobilization Type Myofascial Release,Rolling Intensity/Depth Superficial Body Position Hooklying Comments Monitored for pain Joint Mobilizations R ankle/foot Joint TC AP, tib/fib AP and PA, MTP gross motor rot, STJ M/L, fibula PA&AP Direction R Grade II Body Position Hooklying Comments Monitored for pain, to improve ankle mobility during gait. Mild tenderness near distal fibula with mobilization of subtalar and tibiofibular joints Other Other Manual Treatments Pt reports tenderness at/above lateral malleolus, reports mild pain. Vibration testing to assess for fracture (medial , lateral malleolus, along fibula, fibular head, and 5th metatarsal). Pt unclear if feels vibrations but denies increase in pain at any of the tested sites PT-OP-T Assessment and Plan Start: 05/16/24 10:33 Freq: Status: Active Protocol: Document 07/12/24 08:12 NM (Rec: 07/12/24 09:02 NM [id number]) Physical Therapy Assessment Goals Five Impairment gait- 6 MWT distance with spc 567 ft Short Term Goal (STG) Pt will be able to ambulate using LRAD for at least 500 ft without increase in baseline pain in R ankle or L knee in order to demonstrate improved activity tolerance 06/15/24: 580 ft w/ 3/10 L ankle pain (decreased in pain from 03/10) STG Duration 6 weeks MET Sample Sewer Goal (LTG) Pt will improve 6 MWT distance using LRAD by at least 200 ft (1 MCID) in order to demonstrate improved gait speed, endurance, and BLE strength for household & community ambulation LTG Duration 12 weeks Four Impairment transfers- difficulty with sit to stand Short Term Goal (STG) Pt will be able to perform sit to stand using LRAD and at least 1 UE assist in order to stand without increase in baseline pain in order to demonstrate improved pain management and safety with transfers 06/15/24: Pt able to stand with LRAD and 1 hand assist, no ankle pain 07/12/24: can do STS with LRAD and 1 hand assist, no ankle pain; reports mild knee pain STG Duration 6 weeks MET Fdc Goal (LTG) Pt will be able to perform at least 5 sit to stands from standard chair without UE assist, if appropriate, in order to demonstrate improved BLE strength for transfers and initial standing balance 07/12/24: 10 STS w/o UE assist from 21 table, reports B knee pain LTG Duration 12 weeks PROGRESSING Three Impairment balance- TUG score 21 seconds Fdc Goal (LTG) Pt will decrease TUG time using LRAD to less than 12 seconds in order to meet safe community ambulation distance/ speed in addition to improved balance to decrease fall risk LTG Duration 12 weeks Two Impairment strength- limitations in R ankle strength Sample Sewer Goal (LTG) Pt will improve R ankle global strength to at least 4/5 in order to demonstrate increased strength for gait, stability during stance, and balance during transfers 06/15/24: 4/5 for DF, Pf, 4-/5 inv, 4/5 eversion 07/12/24: 4/5 for DF/EV/PF ( sitting), 4-/5 for inv (pain w / resisted inv at lateral malleolus) LTG Duration 12 weeks PROGRESSING One Impairment ROM- limitations in DF and eversion ROM Fdc Goal (LTG) Pt will improve R ankle dorsiflexion AROM to at least 5 deg and R ankle eversion AROM to at least 10 deg in order to demonstrate improved gait mechanics and ankle ROM for functional mobility 06/15/24: 50 deg PF, 4 deg DF, 15 deg eversion, 28 deg inversion 07/12/24: 5 deg DF, 50 deg PF, 15 deg eversion, 28 deg inversion LTG Duration 12 weeks PROGRESSING, MET 07/12 Progress Towards Goals Progress Towards Goals Progressing Toward Goals Assessment Summary Assessment Pt tolerated session well. He continues to report discomfort along R lateral and dorsal ankle, in addition to his arch . Manual treatment to improve fibular and subtalar joint mobility, as those are most limiting for pt. Progressed unilateral squat on leg press; pt demos improved ankle-knee alignment, no ankle pain but reports mild knee discomfort. PT assessed pt ankle again due to discomfort as pt continues to report tenderness along lateral ankle near fracture site; no pain with vibration testing but pt has decreased sensation overall in area. Reviewed ankle inversion and eversion for correct execution ; pt pain free with both exercises during session. Physical Therapy Plan Frequency and Duration Frequency of Treatment 2x/Week Duration of treatment (weeks) 12 Plan of Care Start Date 05/16/24 Plan of Care End Date 08/11/24 Therapeutic Interventions Therapeutic Interventions Balance Training,Gait Training ,Home Exercise Program,Joint Mobilizations,Manual Therapy, Neuromuscular Re-education, Orthotic/Prosthetic Management ,Patient/Caregiver Education, Self-Care/Home Management, Sensory Integration,Soft Tissue Mobilization,Taping, Therapeutic Activities, Therapeutic Exercises Modalities Cold Pack/Ice Massage Next Visit Focus/Plan Next Note Type Treatment Note Next Visit Plan blood pressure pre and w/ activity Balance: foam pad, shuttle balance. leg press, hip 3 way review and tolerance, SKY calf stretch, trial leg press- single and double leg, buttock tap to chair (lower elevation as able). check tolerance to LAQ band level 3, side steps, balance progress to STS from high surface with less UE support POC: progress to STS, leg pess , step up
--- NOTE | 2024-07-17 09:00 | PT.OTN ---
Current Diagnoses Stiffness of left knee, not elsewhere classified (07/17/24) Stiffness of right ankle, not elsewhere classified (07/17/24) Other lack of coordination (07/17/24) Weakness (07/17/24) Displaced fracture of lateral malleolus of right fibula, initial encounter for closed fracture (07/17/24) Physical Therapy Treatment Note PT-OP-A Visit Information Start: 05/16/24 10:33 Freq: Status: Active Protocol: Document 07/17/24 08:11 SP (Rec: 07/17/24 09:02 SP [id number]) Out-Patient Physical Therapy Visit Information Visit Information Visit Type Treatment Note Visit Start Time 08:11 Visit Stop Time 09:00 Visit Number 14 Number of MANAGER PROPERTY Visits 1 Evaluation Information Evaluation Date 05/16/24 Precautions Precautions monitor vitals w/ exercise Afib, heart disease, fall risk PT-OP-B Current Condition Start: 05/16/24 10:33 Freq: Status: Active Protocol: Document 05/16/24 10:35 NM (Rec: 05/16/24 12:04 NM [id number]) Current Condition History of Current Condition Onset Date 2-3 months ago (pt unsure of date) Current Complaints pain, transfers, mobility, gait, balance, falls History of Current Condition Pt presents with RLE pain and limited mobility following high lateral malleolus fracture. States all healed, has Xray showing healed. He reports pain with WB on RLE during transfers and gait. Using spc in R hand, uses a FWW for household. 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 He reports that he still has L knee pain (aches and shooting pain, arch pain in foot) especially with attempting to rise from a chair. Pt reports that he broke his RLE after falling in the bathroom in the middle of the night, fell against the wall. He states he lost his balance and fell. He was in boot and had braces. Currently not in a brace or boot. He has 2 steps to get into the house, has a rail; no stairs inside the home. Hand rails only in shower, has a high rise toilet. No other injuries to his RLE. He has Afib, states rn cardiovascular is not concerned about it. However, he has had cardioversion before several times to correct rhythm. Significant PMH for blood pressure, possible aneurysm per pt, water retention in BLE. Reports several falls overall. Pt lives with , who attended evaluation and helped provide hx Prior Treatments and Tests 04/07/24 clinic appt with referral states radiographs reveal healed fracture Prior Functional Status Baseline Function- ADL's Independent Baseline Function- Mobility Independent Baseline Function- Gait 1-2 blocks Baseline Function- Recreation/Hobbies retired: golf (hasn't done since before TKA), fishing, clam digging, hunting Current Functional Impairments (Reported) Functional Limitations- ADL's balance and pain: dressing, shoes Functional Limitations- Mobility/Gait transfers (STS) ambulation with FWW and spc Functional Limitations- Recreation/ retired: golf (hasn't done Hobbies since before TKA), fishing, clam digging, hunting wants to get yard work PT-OP-C Subjective Start: 05/16/24 10:33 Freq: Status: Active Protocol: Document 07/17/24 08:11 SP (Rec: 07/17/24 09:02 SP [id number]) OP-PT Subjective Patient Comments Patient Comments Pt reports was little sore in ankles, feet, knees, legs after PT but went away. He still has most pain in plantar fascia when gets up after sitting for a while but loosens up when walk little bit. Doing well with HEP. He stated was on his boat and found at times had to pivot turn which causes irriation in his R ankle up side of leg. PT-OP-E Functional Tests Start: 05/16/24 10:33 Freq: Status: Active Protocol: Document 05/16/24 10:35 NM (Rec: 05/16/24 12:04 NM [id number]) Functional Tests 6 Minute Walk Test Distance 567 ft Device Used spc in L hand Comments 1 stumble w/o LOB; has R heel pain after 4 minutes Five Times Sit to Stand Test Score unable to complete due to L knee pain Comments requires 2 hand assist to rise Timed Up and Go (TUG) Score 21 seconds Comments spc in L hand (corrected height) PT-OP-F Manual Assessment Start: 05/16/24 10:33 Freq: Status: Active Protocol: Document 05/16/24 10:35 NM (Rec: 05/16/24 12:04 NM [id number]) Manual Assessments Soft Tissue Assessment Soft Tissue Mobility Assessment Increased edema in BLE, worse at ankles/dorsal feet. Limitations in B heel cord length Joint Mobility Assessment Joint Mobility Assessment No instability at R ankle or knee, but limited ray and talocrural mobility PT-OP-G Mobility & Gait Start: 05/16/24 10:33 Freq: Status: Active Protocol: Document 05/16/24 10:35 NM (Rec: 05/16/24 12:04 NM [id number]) OP Gait Assessment Gait Gait Assistance Required: Standby Assistance Distance (Feet) 150 Assistive Devices Assistive Device Gait Belt,Straight Cane Gait Deviations General Gait Pattern Decreased Stride Length, Decreased Feet Clearance,Wide Based Gait Factors Limiting Gait Function Factors Limiting Gait Function Decreased Activity Tolerance, Decreased Sensation,Limited Range of Motion,Pain,Poor Balance Comments Gait Comments Performed at beginning of evaluation. Pt demos antalgic gait and uses spc in R hand, leaning heavily on spc for assistance. Spc placed far from body. Demos B foot ER, quick heel off after weight acceptance. Wide based gait. Uses custom wood spc PT-OP-H Neuro Start: 05/16/24 10:33 Freq: Status: Active Protocol: Document 05/16/24 10:35 NM (Rec: 05/16/24 12:04 NM [id number]) Sensation Evaluation Comments Summary Comments BLE equally intact to light touch sensation PT-OP-J Posture/Palpation/Skin Start: 05/16/24 10:33 Freq: Status: Active Protocol: Document 05/16/24 10:35 NM (Rec: 05/16/24 12:04 NM [id number]) Posture Evaluation Comments Posture Comments Demos wide base stance, decreased WB on RLE Palpation Assessment Location R leg Palpation Findings Edema,Soft Tissue Tightness Palpation Details No tenderness to palpation along medial or lateral malleoli or along entire fibula from malleoli to fibular head. No tenderness along tibia. Tenderness along talocrural joint near mortise Increased edema bilaterally, especially along dorsal foot and ankle, non-pitting Skin Assessment Circumference Measurement L ankle Location figure 8: 65 cm R ankle Location figure 8: 60 cm Comments 30 cm across malleoli Other Assessments Skin Assessment Comments BLE ankle/feet skin is tight due to edema, reddened and dry /flaky PT-OP-K Range of Motion Start: 05/16/24 10:33 Freq: Status: Active Protocol: Document 07/12/24 08:12 NM (Rec: 07/12/24 09:02 NM [id number]) Ankle and Foot Goniometric Range of Motion Ankle and Foot Right Dorsiflexion with Knee Flexed 3 Plantarflexion 45 Inversion 15 Eversion 2 Comments IE: 0 deg DF, 45 deg PF, 15 deg inv, 2 deg ev; Mild pain with AROM DF, inversion 06/15/24: 50 deg PF, 4 deg DF, 15 deg eversion, 28 deg inversion 07/12/24: 5 deg DF, 50 deg PF, 15 deg everesion, 28 deg inversion PT-OP-M Strength Start: 05/16/24 10:33 Freq: Status: Active Protocol: Document 07/12/24 08:12 NM (Rec: 07/12/24 09:02 NM [id number]) Hip Strength Hip Manual Muscle Testing Left Flexion (L2) 4 Good Extension (S1) 4 Good Abduction 4 Good Adduction 4 Good External Rotation 4 Good Internal Rotation 4 Good Right Flexion (L2) 4- Good- Extension (S1) 4- Good- Abduction 4- Good- Adduction 4- Good- External Rotation 4- Good- Internal Rotation 4- Good- Comments No pain Knee Strength Knee Manual Muscle Testing Left Flexion (S2) 4 Good Extension (L3) 4 Good Comments No pain Right Flexion (S2) 4- Good- Extension (L3) 4- Good- Comments No pain Ankle/Foot Strength Ankle and Foot Manual Muscle Testing Left Dorsiflexion (L4) 4 Good Plantarflexion (S1) 4 Good Inversion 4 Good Eversion (S1) 4 Good Comments All tested in sitting (no standing PF due to time) Right Dorsiflexion (L4) 4- Good- Plantarflexion (S1) 4 Good Inversion 3+ Fair+ Eversion (S1) 3+ Fair+ Comments All tested in sitting (no standing PF due to time) 06/15/24: 4/5 for DF, Pf, 4-/5 inv, 4/5 eversion 07/12/24: 4/5 for DF/EV/PF ( sitting), 4-/5 for inv (pain w / resisted inv at lateral malleolus) PT-OP-Q Treatments Start: 05/16/24 10:33 Freq: Status: Active Protocol: Document 07/17/24 08:11 SP (Rec: 07/17/24 09:02 SP [id number]) Gym Equipment Shuttle Recovery unilateral squat Details Each LE- cued knee alignment with mid foot see inside ankle Resistance 62# (2 navy) Reps/Time 2x20 Shuttle Balance red Details WBOS, stride stance Reps/Duration 4 min Comments FWD/BWD/Lateral -wt shift -stationary balance: light touch intermittent let go CG-10%A. Therapeutic Exercises Sitting Exercises sit<> stand Sitting Exercise Name 1. 1 hand assist, 2. no UE assist Side bilateral Equipment Used mesh chair + blue foam Reps/Minutes 1. 2, 2. 10 Comments ed scoot front chair, feet back, hip hinge, little momentum stand& sit LAQ Sitting Exercise Name HEP review Side bilateral Resistance level 3 band (good quad quivering 07/17) Equipment Used mesh chair Reps/Minutes 2x15 with 2 hold Comments L knee slight discomfort but decreased with reps Standing Exercises hip 3 way Standing Exercise Name HEP reviewed- updated TB ankles vs thighs (provided TB for home) Side bilateral Resistance level 2 band at ankles Equipment Used 1 hand support for balance Reps/Minutes 10 ea Comments good control and upright posture; cued neutral foot positioning side steps Standing Exercise Name HEP side step, trialed fwd/bwd 06/21 Side bilateral Resistance level 3 band at thighs Equipment Used no UE support, near rail Reps/Minutes 10 ft x3 laps Comments cued neutral foot placement // fwd, hip muscle tiring, no pain calf stretch Standing Exercise Name HEP (Pt reports performs the lunge for calf stretch) Side bilateral Equipment Used SKY, //bar support Reps/Minutes 10 SH x10 reps Comments feels good light calf stretch, no plantar fascia pain reported PT-OP-T Assessment and Plan Start: 05/16/24 10:33 Freq: Status: Active Protocol: Document 07/17/24 08:11 SP (Rec: 07/17/24 09:02 SP [id number]) Physical Therapy Assessment Goals Five Impairment gait- 6 MWT distance with spc 567 ft Short Term Goal (STG) Pt will be able to ambulate using LRAD for at least 500 ft without increase in baseline pain in R ankle or L knee in order to demonstrate improved activity tolerance 06/15/24: 580 ft w/ 3/10 L ankle pain (decreased in pain from 03/10) STG Duration 6 weeks MET Spraying Machine Operator Goal (LTG) Pt will improve 6 MWT distance using LRAD by at least 200 ft (1 MCID) in order to demonstrate improved gait speed, endurance, and BLE strength for household & community ambulation LTG Duration 12 weeks Four Impairment transfers- difficulty with sit to stand Short Term Goal (STG) Pt will be able to perform sit to stand using LRAD and at least 1 UE assist in order to stand without increase in baseline pain in order to demonstrate improved pain management and safety with transfers 06/15/24: Pt able to stand with LRAD and 1 hand assist, no ankle pain 07/12/24: can do STS with LRAD and 1 hand assist, no ankle pain; reports mild knee pain STG Duration 6 weeks MET Mcc Goal (LTG) Pt will be able to perform at least 5 sit to stands from standard chair without UE assist, if appropriate, in order to demonstrate improved BLE strength for transfers and initial standing balance 07/12/24: 10 STS w/o UE assist from 21 table, reports B knee pain LTG Duration 12 weeks PROGRESSING Three Impairment balance- TUG score 21 seconds Spraying Machine Operator Goal (LTG) Pt will decrease TUG time using LRAD to less than 12 seconds in order to meet safe community ambulation distance/ speed in addition to improved balance to decrease fall risk LTG Duration 12 weeks Two Impairment strength- limitations in R ankle strength Spraying Machine Operator Goal (LTG) Pt will improve R ankle global strength to at least 4/5 in order to demonstrate increased strength for gait, stability during stance, and balance during transfers 06/15/24: 4/5 for DF, Pf, 4-/5 inv, 4/5 eversion 07/12/24: 4/5 for DF/EV/PF ( sitting), 4-/5 for inv (pain w / resisted inv at lateral malleolus) LTG Duration 12 weeks PROGRESSING One Impairment ROM- limitations in DF and eversion ROM Mcc Goal (LTG) Pt will improve R ankle dorsiflexion AROM to at least 5 deg and R ankle eversion AROM to at least 10 deg in order to demonstrate improved gait mechanics and ankle ROM for functional mobility 06/15/24: 50 deg PF, 4 deg DF, 15 deg eversion, 28 deg inversion 07/12/24: 5 deg DF, 50 deg PF, 15 deg eversion, 28 deg inversion LTG Duration 12 weeks PROGRESSING, MET 07/12 Assessment Summary Assessment Pt responded well to ther ex this tx, report mostly muscle tiring during all ther ex. Trialed shuttle balance f/b/ lateral challenged no UE support CG- 10%A. He did report 3/10 lateral R ankle during lateral wt shifts R so stayed in painfree/tolerated range, no pain plantar fascia end tx. Physical Therapy Plan Frequency and Duration Frequency of Treatment 2x/Week Duration of treatment (weeks) 12 Plan of Care Start Date 05/16/24 Plan of Care End Date 08/11/24 Therapeutic Interventions Therapeutic Interventions Balance Training,Gait Training ,Home Exercise Program,Joint Mobilizations,Manual Therapy, Neuromuscular Re-education, Orthotic/Prosthetic Management ,Patient/Caregiver Education, Self-Care/Home Management, Sensory Integration,Soft Tissue Mobilization,Taping, Therapeutic Activities, Therapeutic Exercises Modalities Cold Pack/Ice Massage Next Visit Focus/Plan Next Note Type Treatment Note Next Visit Plan blood pressure pre and w/ activity Next add Balance: foam pad, continue shuttle balance, leg press sl vs dl, resisted hip 3 way review and tolerance, SYK calf stretch, buttock tap to chair (lower elevation as able 20). check tolerance to LAQ band level 3, side steps, balance. progress to STS from high surface with less UE support POC: progress to STS, leg pess , step up
--- NOTE | 2024-07-19 09:01 | PT.OTN ---
Current Diagnoses Stiffness of left knee, not elsewhere classified (07/19/24) Stiffness of right ankle, not elsewhere classified (07/19/24) Other lack of coordination (07/19/24) Weakness (07/19/24) Displaced fracture of lateral malleolus of right fibula, initial encounter for closed fracture (07/19/24) Physical Therapy Treatment Note PT-OP-A Visit Information Start: 05/16/24 10:33 Freq: Status: Active Protocol: Document 07/19/24 08:21 SP (Rec: 07/19/24 09:04 SP [id number]) Out-Patient Physical Therapy Visit Information Visit Information Visit Type Treatment Note Visit Start Time 08:21 Visit Stop Time 09:01 Visit Number 15 Number of SHOP DIRECTOR Visits 2 Evaluation Information Evaluation Date 05/16/24 Precautions Precautions monitor vitals w/ exercise Afib, heart disease, fall risk PT-OP-B Current Condition Start: 05/16/24 10:33 Freq: Status: Active Protocol: Document 05/16/24 10:35 NM (Rec: 05/16/24 12:04 NM [id number]) Current Condition History of Current Condition Onset Date 2-3 months ago (pt unsure of date) Current Complaints pain, transfers, mobility, gait, balance, falls History of Current Condition Pt presents with RLE pain and limited mobility following high lateral malleolus fracture. States all healed, has Xray showing healed. He reports pain with WB on RLE during transfers and gait. Using spc in R hand, uses a FWW for household. 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 He reports that he still has L knee pain (aches and shooting pain, arch pain in foot) especially with attempting to rise from a chair. Pt reports that he broke his RLE after falling in the bathroom in the middle of the night, fell against the wall. He states he lost his balance and fell. He was in boot and had braces. Currently not in a brace or boot. He has 2 steps to get into the house, has a rail; no stairs inside the home. Hand rails only in shower, has a high rise toilet. No other injuries to his RLE. 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 However, he has had cardioversion before several times to correct rhythm. Significant PMH for blood pressure, possible aneurysm per pt, water retention in BLE. Reports several falls overall. Pt lives with , who attended evaluation and helped provide hx Prior Treatments and Tests 04/07/24 clinic appt with referral states radiographs reveal healed fracture Prior Functional Status Baseline Function- ADL's Independent Baseline Function- Mobility Independent Baseline Function- Gait 1-2 blocks Baseline Function- Recreation/Hobbies retired: golf (hasn't done since before TKA), fishing, clam digging, hunting Current Functional Impairments (Reported) Functional Limitations- ADL's balance and pain: dressing, shoes Functional Limitations- Mobility/Gait transfers (STS) ambulation with FWW and spc Functional Limitations- Recreation/ retired: golf (hasn't done Hobbies since before TKA), fishing, clam digging, hunting wants to get yard work PT-OP-C Subjective Start: 05/16/24 10:33 Freq: Status: Active Protocol: Document 07/19/24 08:21 SP (Rec: 07/19/24 09:04 SP [id number]) OP-PT Subjective Patient Comments Patient Comments Pt reports R ankle feels stiff and L knee little sore. After last tx little later in day R ankle and foot hurt little but sat down and rested and went away. Compliant with HEP home. PT-OP-E Functional Tests Start: 05/16/24 10:33 Freq: Status: Active Protocol: Document 05/16/24 10:35 NM (Rec: 05/16/24 12:04 NM [id number]) Functional Tests 6 Minute Walk Test Distance 567 ft Device Used spc in L hand Comments 1 stumble w/o LOB; has R heel pain after 4 minutes Five Times Sit to Stand Test Score unable to complete due to L knee pain Comments requires 2 hand assist to rise Timed Up and Go (TUG) Score 21 seconds Comments spc in L hand (corrected height) PT-OP-F Manual Assessment Start: 05/16/24 10:33 Freq: Status: Active Protocol: Document 05/16/24 10:35 NM (Rec: 05/16/24 12:04 NM [id number]) Manual Assessments Soft Tissue Assessment Soft Tissue Mobility Assessment Increased edema in BLE, worse at ankles/dorsal feet. Limitations in B heel cord length Joint Mobility Assessment Joint Mobility Assessment No instability at R ankle or knee, but limited ray and talocrural mobility PT-OP-G Mobility & Gait Start: 05/16/24 10:33 Freq: Status: Active Protocol: Document 05/16/24 10:35 NM (Rec: 05/16/24 12:04 NM [id number]) OP Gait Assessment Gait Gait Assistance Required: Standby Assistance Distance (Feet) 150 Assistive Devices Assistive Device Gait Belt,Straight Cane Gait Deviations General Gait Pattern Decreased Stride Length, Decreased Feet Clearance,Wide Based Gait Factors Limiting Gait Function Factors Limiting Gait Function Decreased Activity Tolerance, Decreased Sensation,Limited Range of Motion,Pain,Poor Balance Comments Gait Comments Performed at beginning of evaluation. Pt demos antalgic gait and uses spc in R hand, leaning heavily on spc for assistance. Spc placed far from body. Demos B foot ER, quick heel off after weight acceptance. Wide based gait. Uses custom wood spc PT-OP-H Neuro Start: 05/16/24 10:33 Freq: Status: Active Protocol: Document 05/16/24 10:35 NM (Rec: 05/16/24 12:04 NM [id number]) Sensation Evaluation Comments Summary Comments BLE equally intact to light touch sensation PT-OP-J Posture/Palpation/Skin Start: 05/16/24 10:33 Freq: Status: Active Protocol: Document 05/16/24 10:35 NM (Rec: 05/16/24 12:04 NM [id number]) Posture Evaluation Comments Posture Comments Demos wide base stance, decreased WB on RLE Palpation Assessment Location R leg Palpation Findings Edema,Soft Tissue Tightness Palpation Details No tenderness to palpation along medial or lateral malleoli or along entire fibula from malleoli to fibular head. No tenderness along tibia. Tenderness along talocrural joint near mortise Increased edema bilaterally, especially along dorsal foot and ankle, non-pitting Skin Assessment Circumference Measurement L ankle Location figure 8: 65 cm R ankle Location figure 8: 60 cm Comments 30 cm across malleoli Other Assessments Skin Assessment Comments BLE ankle/feet skin is tight due to edema, reddened and dry /flaky PT-OP-K Range of Motion Start: 05/16/24 10:33 Freq: Status: Active Protocol: Document 07/12/24 08:12 NM (Rec: 07/12/24 09:02 NM [id number]) Ankle and Foot Goniometric Range of Motion Ankle and Foot Right Dorsiflexion with Knee Flexed 3 Plantarflexion 45 Inversion 15 Eversion 2 Comments IE: 0 deg DF, 45 deg PF, 15 deg inv, 2 deg ev; Mild pain with AROM DF, inversion 06/15/24: 50 deg PF, 4 deg DF, 15 deg eversion, 28 deg inversion 07/12/24: 5 deg DF, 50 deg PF, 15 deg everesion, 28 deg inversion PT-OP-M Strength Start: 05/16/24 10:33 Freq: Status: Active Protocol: Document 07/12/24 08:12 NM (Rec: 07/12/24 09:02 NM [id number]) Hip Strength Hip Manual Muscle Testing Left Flexion (L2) 4 Good Extension (S1) 4 Good Abduction 4 Good Adduction 4 Good External Rotation 4 Good Internal Rotation 4 Good Right Flexion (L2) 4- Good- Extension (S1) 4- Good- Abduction 4- Good- Adduction 4- Good- External Rotation 4- Good- Internal Rotation 4- Good- Comments No pain Knee Strength Knee Manual Muscle Testing Left Flexion (S2) 4 Good Extension (L3) 4 Good Comments No pain Right Flexion (S2) 4- Good- Extension (L3) 4- Good- Comments No pain Ankle/Foot Strength Ankle and Foot Manual Muscle Testing Left Dorsiflexion (L4) 4 Good Plantarflexion (S1) 4 Good Inversion 4 Good Eversion (S1) 4 Good Comments All tested in sitting (no standing PF due to time) Right Dorsiflexion (L4) 4- Good- Plantarflexion (S1) 4 Good Inversion 3+ Fair+ Eversion (S1) 3+ Fair+ Comments All tested in sitting (no standing PF due to time) 06/15/24: 4/5 for DF, Pf, 4-/5 inv, 4/5 eversion 07/12/24: 4/5 for DF/EV/PF ( sitting), 4-/5 for inv (pain w / resisted inv at lateral malleolus) PT-OP-Q Treatments Start: 05/16/24 10:33 Freq: Status: Active Protocol: Document 07/19/24 08:21 SP (Rec: 07/19/24 09:04 SP [id number]) Gym Equipment Shuttle Recovery unilateral squat Details improved knee alignment, L painfree range approx 80 deg flexion Resistance 62# (2 navy) Reps/Time 15, 20 reps LLE; 20 x2 RLE Therapeutic Exercises Sitting Exercises sit<> stand Sitting Exercise Name 1. 1 hand assist, 2. no UE assist Side bilateral Equipment Used mesh chair + blue foam Reps/Minutes 1. 2, 2. 2 reps each (20>19 ) Comments ed scoot front chair, feet back, hip hinge, little momentum stand& sit Standing Exercises step ups Standing Exercise Name step up/back down repeated same leg then switch- HEP reviewed Side bilateral Resistance AROM Equipment Used 6 step, 1 HR opp LE leading Reps/Minutes 15 reps BLE, Comments with cueing for push through heel, knee flexion and strong quad activation calf stretch Standing Exercise Name HEP (Pt reports performs the lunge for calf stretch) Side bilateral Equipment Used SKY, //bar support Reps/Minutes 10 SH x10 reps Comments feels good light calf stretch, no plantar fascia pain reported Manual Therapy Treatment Soft Tissue Mobilization R ankle/foot Body Location R peroneals, anterior ankle, tibialis ant/EHL, calf Mobilization Type Myofascial Release,Rolling, Sustained Pressure,Other Intensity/Depth Superficial Body Position Hooklying Comments pressure Monitored for pain, STMs and MWM /c active R ankle PF/DF FM peroneals and calf Joint Mobilizations R ankle/foot Joint TC AP, tib/fib AP and PA, calcaneal distraction med/lat, MTP gross motor rot Direction R Grade II Body Position Hooklying Comments Monitored for pain, to improve ankle mobility during gait. Mild tenderness near distal fibula with mobilization of subtalar and tibiofibular joints Manual Techniques PROM DF right ankle Type R Body Position Supine Comments Passive DF PROM, improves more DF range (not measured) post manual. Neuro Re-Education Treatment Balance Activities BOSU lateral step up/down Details trialed in PT for proprioception ankle stability Equipment BOSU SL, B HR support Reps/Duration x10 each LE Comments reports slight lateral R ankle tension last rep but painfree L knee hurdles Details trialed in PT for funcational ankle, hip, knee AROM, bal Comments fwd step to, redirection not use rail unless has to able to but is unsure of his stability. PT-OP-T Assessment and Plan Start: 05/16/24 10:33 Freq: Status: Active Protocol: Document 07/19/24 08:21 SP (Rec: 07/19/24 09:04 SP [id number]) Physical Therapy Assessment Goals Five Impairment gait- 6 MWT distance with spc 567 ft Short Term Goal (STG) Pt will be able to ambulate using LRAD for at least 500 ft without increase in baseline pain in R ankle or L knee in order to demonstrate improved activity tolerance 06/15/24: 580 ft w/ 3/10 L ankle pain (decreased in pain from 03/10) STG Duration 6 weeks MET Snf Goal (LTG) Pt will improve 6 MWT distance using LRAD by at least 200 ft (1 MCID) in order to demonstrate improved gait speed, endurance, and BLE strength for household & community ambulation LTG Duration 12 weeks Four Impairment transfers- difficulty with sit to stand Short Term Goal (STG) Pt will be able to perform sit to stand using LRAD and at least 1 UE assist in order to stand without increase in baseline pain in order to demonstrate improved pain management and safety with transfers 06/15/24: Pt able to stand with LRAD and 1 hand assist, no ankle pain 07/12/24: can do STS with LRAD and 1 hand assist, no ankle pain; reports mild knee pain STG Duration 6 weeks MET Adult Educator Goal (LTG) Pt will be able to perform at least 5 sit to stands from standard chair without UE assist, if appropriate, in order to demonstrate improved BLE strength for transfers and initial standing balance 07/12/24: 10 STS w/o UE assist from 21 table, reports B knee pain LTG Duration 12 weeks PROGRESSING Three Impairment balance- TUG score 21 seconds Adult Educator Goal (LTG) Pt will decrease TUG time using LRAD to less than 12 seconds in order to meet safe community ambulation distance/ speed in addition to improved balance to decrease fall risk LTG Duration 12 weeks Two Impairment strength- limitations in R ankle strength Adult Educator Goal (LTG) Pt will improve R ankle global strength to at least 4/5 in order to demonstrate increased strength for gait, stability during stance, and balance during transfers 06/15/24: 4/5 for DF, Pf, 4-/5 inv, 4/5 eversion 07/12/24: 4/5 for DF/EV/PF ( sitting), 4-/5 for inv (pain w / resisted inv at lateral malleolus) LTG Duration 12 weeks PROGRESSING One Impairment ROM- limitations in DF and eversion ROM Adult Educator Goal (LTG) Pt will improve R ankle dorsiflexion AROM to at least 5 deg and R ankle eversion AROM to at least 10 deg in order to demonstrate improved gait mechanics and ankle ROM for functional mobility 06/15/24: 50 deg PF, 4 deg DF, 15 deg eversion, 28 deg inversion 07/12/24: 5 deg DF, 50 deg PF, 15 deg eversion, 28 deg inversion LTG Duration 12 weeks PROGRESSING, MET 07/12 Assessment Summary Assessment Pt reports improves R ankle mobility after manual. Cued limit L knee flexion ROM on shuttle recovery today, continues good muscle tiring effort for strengthening. Pt was able to come to standing from 20>19 surface elevated table without UE support but low reps due to L knee pain. No pain and good tolerance to step ups, cues for less UE support opp LE on 6step. Trialed lateral step downs on BOSU for ankle properioception and hip abd strengthening with no adverse pain reports but does require Min/Mod UE support to wt shift onto stance LE. Pt reports does walk on uneven grass and would like to incorporate balance into PT session for support better stability in community navigation Physical Therapy Plan Frequency and Duration Frequency of Treatment 2x/Week Duration of treatment (weeks) 12 Plan of Care Start Date 05/16/24 Plan of Care End Date 08/11/24 Therapeutic Interventions Therapeutic Interventions Balance Training,Gait Training ,Home Exercise Program,Joint Mobilizations,Manual Therapy, Neuromuscular Re-education, Orthotic/Prosthetic Management ,Patient/Caregiver Education, Self-Care/Home Management, Sensory Integration,Soft Tissue Mobilization,Taping, Therapeutic Activities, Therapeutic Exercises Modalities Cold Pack/Ice Massage Next Visit Focus/Plan Next Note Type Treatment Note Next Visit Plan blood pressure pre and w/ activity Next add Balance: foam pad, continue shuttle balance, leg press sl vs dl, resisted hip 3 way review and tolerance, SKY calf stretch, buttock tap to chair (lower elevation as able 20). check tolerance to LAQ band level 3, side steps, balance. progress to STS from high surface with less UE support *per pt incorporate uneven surface walking for more confidence walking on grass. POC: progress to STS, leg pess , step up
--- NOTE | 2024-07-26 08:58 | PT.OTN ---
Current Diagnoses Stiffness of left knee, not elsewhere classified (07/26/24) Stiffness of right ankle, not elsewhere classified (07/26/24) Other lack of coordination (07/26/24) Weakness (07/26/24) Displaced fracture of lateral malleolus of right fibula, initial encounter for closed fracture (07/26/24) Physical Therapy Treatment Note PT-OP-A Visit Information Start: 05/16/24 10:33 Freq: Status: Active Protocol: Document 07/26/24 08:18 SP (Rec: 07/26/24 09:08 SP [id number]) Out-Patient Physical Therapy Visit Information Visit Information Visit Type Treatment Note Visit Start Time 08:18 Visit Stop Time 08:58 Visit Number 16 Number of CONDOMINIUM PROPERTY MANAGER Visits 3 Evaluation Information Evaluation Date 05/16/24 Precautions Precautions monitor vitals w/ exercise Afib, heart disease, fall risk PT-OP-B Current Condition Start: 05/16/24 10:33 Freq: Status: Active Protocol: Document 05/16/24 10:35 NM (Rec: 05/16/24 12:04 NM [id number]) Current Condition History of Current Condition Onset Date 2-3 months ago (pt unsure of date) Current Complaints pain, transfers, mobility, gait, balance, falls History of Current Condition Pt presents with RLE pain and limited mobility following high lateral malleolus fracture. States all healed, has Xray showing healed. He reports pain with WB on RLE during transfers and gait. Using spc in R hand, uses a FWW for household. 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 He reports that he still has L knee pain (aches and shooting pain, arch pain in foot) especially with attempting to rise from a chair. Pt reports that he broke his RLE after falling in the bathroom in the middle of the night, fell against the wall. He states he lost his balance and fell. He was in boot and had braces. Currently not in a brace or boot. He has 2 steps to get into the house, has a rail; no stairs inside the home. Hand rails only in shower, has a high rise toilet. No other injuries to his RLE. 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 However, he has had cardioversion before several times to correct rhythm. Significant PMH for blood pressure, possible aneurysm per pt, water retention in BLE. Reports several falls overall. Pt lives with , who attended evaluation and helped provide hx Prior Treatments and Tests 04/07/24 clinic appt with referral states radiographs reveal healed fracture Prior Functional Status Baseline Function- ADL's Independent Baseline Function- Mobility Independent Baseline Function- Gait 1-2 blocks Baseline Function- Recreation/Hobbies retired: golf (hasn't done since before TKA), fishing, clam digging, hunting Current Functional Impairments (Reported) Functional Limitations- ADL's balance and pain: dressing, shoes Functional Limitations- Mobility/Gait transfers (STS) ambulation with FWW and spc Functional Limitations- Recreation/ retired: golf (hasn't done Hobbies since before TKA), fishing, clam digging, hunting wants to get yard work PT-OP-C Subjective Start: 05/16/24 10:33 Freq: Status: Active Protocol: Document 07/26/24 08:18 SP (Rec: 07/26/24 09:08 SP [id number]) OP-PT Subjective Patient Comments Patient Comments Pt reports L dorsal foot 8/10 last night and today after being out on his boat. Has an appt with Rheumotologist. REports his R ankle is doing well and compliant with HEP. PT-OP-E Functional Tests Start: 05/16/24 10:33 Freq: Status: Active Protocol: Document 05/16/24 10:35 NM (Rec: 05/16/24 12:04 NM [id number]) Functional Tests 6 Minute Walk Test Distance 567 ft Device Used spc in L hand Comments 1 stumble w/o LOB; has R heel pain after 4 minutes Five Times Sit to Stand Test Score unable to complete due to L knee pain Comments requires 2 hand assist to rise Timed Up and Go (TUG) Score 21 seconds Comments spc in L hand (corrected height) PT-OP-F Manual Assessment Start: 05/16/24 10:33 Freq: Status: Active Protocol: Document 05/16/24 10:35 NM (Rec: 05/16/24 12:04 NM [id number]) Manual Assessments Soft Tissue Assessment Soft Tissue Mobility Assessment Increased edema in BLE, worse at ankles/dorsal feet. Limitations in B heel cord length Joint Mobility Assessment Joint Mobility Assessment No instability at R ankle or knee, but limited ray and talocrural mobility PT-OP-G Mobility & Gait Start: 05/16/24 10:33 Freq: Status: Active Protocol: Document 05/16/24 10:35 NM (Rec: 05/16/24 12:04 NM [id number]) OP Gait Assessment Gait Gait Assistance Required: Standby Assistance Distance (Feet) 150 Assistive Devices Assistive Device Gait Belt,Straight Cane Gait Deviations General Gait Pattern Decreased Stride Length, Decreased Feet Clearance,Wide Based Gait Factors Limiting Gait Function Factors Limiting Gait Function Decreased Activity Tolerance, Decreased Sensation,Limited Range of Motion,Pain,Poor Balance Comments Gait Comments Performed at beginning of evaluation. Pt demos antalgic gait and uses spc in R hand, leaning heavily on spc for assistance. Spc placed far from body. Demos B foot ER, quick heel off after weight acceptance. Wide based gait. Uses custom wood spc PT-OP-H Neuro Start: 05/16/24 10:33 Freq: Status: Active Protocol: Document 05/16/24 10:35 NM (Rec: 05/16/24 12:04 NM [id number]) Sensation Evaluation Comments Summary Comments BLE equally intact to light touch sensation PT-OP-J Posture/Palpation/Skin Start: 05/16/24 10:33 Freq: Status: Active Protocol: Document 05/16/24 10:35 NM (Rec: 05/16/24 12:04 NM [id number]) Posture Evaluation Comments Posture Comments Demos wide base stance, decreased WB on RLE Palpation Assessment Location R leg Palpation Findings Edema,Soft Tissue Tightness Palpation Details No tenderness to palpation along medial or lateral malleoli or along entire fibula from malleoli to fibular head. No tenderness along tibia. Tenderness along talocrural joint near mortise Increased edema bilaterally, especially along dorsal foot and ankle, non-pitting Skin Assessment Circumference Measurement L ankle Location figure 8: 65 cm R ankle Location figure 8: 60 cm Comments 30 cm across malleoli Other Assessments Skin Assessment Comments BLE ankle/feet skin is tight due to edema, reddened and dry /flaky PT-OP-K Range of Motion Start: 05/16/24 10:33 Freq: Status: Active Protocol: Document 07/12/24 08:12 NM (Rec: 07/12/24 09:02 NM [id number]) Ankle and Foot Goniometric Range of Motion Ankle and Foot Right Dorsiflexion with Knee Flexed 3 Plantarflexion 45 Inversion 15 Eversion 2 Comments IE: 0 deg DF, 45 deg PF, 15 deg inv, 2 deg ev; Mild pain with AROM DF, inversion 06/15/24: 50 deg PF, 4 deg DF, 15 deg eversion, 28 deg inversion 07/12/24: 5 deg DF, 50 deg PF, 15 deg everesion, 28 deg inversion PT-OP-M Strength Start: 05/16/24 10:33 Freq: Status: Active Protocol: Document 07/12/24 08:12 NM (Rec: 07/12/24 09:02 NM [id number]) Hip Strength Hip Manual Muscle Testing Left Flexion (L2) 4 Good Extension (S1) 4 Good Abduction 4 Good Adduction 4 Good External Rotation 4 Good Internal Rotation 4 Good Right Flexion (L2) 4- Good- Extension (S1) 4- Good- Abduction 4- Good- Adduction 4- Good- External Rotation 4- Good- Internal Rotation 4- Good- Comments No pain Knee Strength Knee Manual Muscle Testing Left Flexion (S2) 4 Good Extension (L3) 4 Good Comments No pain Right Flexion (S2) 4- Good- Extension (L3) 4- Good- Comments No pain Ankle/Foot Strength Ankle and Foot Manual Muscle Testing Left Dorsiflexion (L4) 4 Good Plantarflexion (S1) 4 Good Inversion 4 Good Eversion (S1) 4 Good Comments All tested in sitting (no standing PF due to time) Right Dorsiflexion (L4) 4- Good- Plantarflexion (S1) 4 Good Inversion 3+ Fair+ Eversion (S1) 3+ Fair+ Comments All tested in sitting (no standing PF due to time) 06/15/24: 4/5 for DF, Pf, 4-/5 inv, 4/5 eversion 07/12/24: 4/5 for DF/EV/PF ( sitting), 4-/5 for inv (pain w / resisted inv at lateral malleolus) PT-OP-Q Treatments Start: 05/16/24 10:33 Freq: Status: Active Protocol: Document 07/26/24 08:18 SP (Rec: 09/25/24 09:08 SP [id number]) Gym Equipment Shuttle Balance red Details WBOS, stride stance Reps/Duration 4 min Comments FWD/BWD/Lateral -wt shift -stationary balance: light touch intermittent let go /c head turns CG-10%A at gait belt ,cues for directioning wt shift to improve stability. No pain reported just challenging for balance and leg tiring by end Therapeutic Exercises Sitting Exercises foot intrinsics Sitting Exercise Name 1. arch raise, 2. toe flex, 3. toe ext 4. toe abd Side bilateral Reps/Minutes 1. 10 w/ tactile cue, 2. 10, 3 . 10 4. 10 Comments cueing and demonstration follow for correct execution sit<> stand Sitting Exercise Name 1. 1 hand assist 2. no UE- unable to Side bilateral Equipment Used mesh chair + blue foam Reps/Minutes x5 reps Comments ed scoot front chair, feet back, hip hinge, little momentum stand& sit ankle AROM Sitting Exercise Name Eversion, inversion (HEP review- states has HO) Side right Resistance level 2 Teal band (EV&IV), Level 3 (PF) [place] green band Reps/Minutes 2x10 (ev and inv pain free) Comments cueing for correct exec w/ eversion to prevent hip ABD/ER Standing Exercises ankle DF raises Standing Exercise Name HEP review Side bilateral Equipment Used back on wall for safety Reps/Minutes 15 Comments limited ROM on L with reps- weakness, pain free calf raises Standing Exercise Name HEP reviewed Side bilateral Equipment Used contact facing wall, 1 UE support Reps/Minutes 2x15 Comments good form pnfree step ups Standing Exercise Name step up/back down repeated same leg then switch- HEP reviewed Side bilateral Resistance AROM Equipment Used 6 step, 1 HR opp LE leading Reps/Minutes 15 reps each LE Comments with cueing for push through heel, knee flexion and strong quad activation ankle mobility Standing Exercise Name ankle mobility Side bilateral Resistance AROM Equipment Used rail support, foot on 2nd step Reps/Minutes 10 calf stretch Standing Exercise Name HEP (Pt reports performs the lunge for calf stretch) Side bilateral Equipment Used SKY, //bar support Reps/Minutes 10 SH x10 reps Comments feels good light calf stretch, no plantar fascia pain reported Gait Training Gait Activity spc Device Used SPC>no AD Level of Assistance S Distance/Duration 8 minutes- around gym various areas Comments Cued heel toe, increased stride, improved with progressive ther ex HEP review . PT-OP-T Assessment and Plan Start: 05/16/24 10:33 Freq: Status: Active Protocol: Document 07/26/24 08:18 SP (Rec: 07/26/24 09:08 SP [id number]) Physical Therapy Assessment Goals Five Impairment gait- 6 MWT distance with spc 567 ft Short Term Goal (STG) Pt will be able to ambulate using LRAD for at least 500 ft without increase in baseline pain in R ankle or L knee in order to demonstrate improved activity tolerance 06/15/24: 580 ft w/ 3/10 L ankle pain (decreased in pain from 03/10) STG Duration 6 weeks MET Principal Planner Goal (LTG) Pt will improve 6 MWT distance using LRAD by at least 200 ft (1 MCID) in order to demonstrate improved gait speed, endurance, and BLE strength for household & community ambulation LTG Duration 12 weeks Four Impairment transfers- difficulty with sit to stand Short Term Goal (STG) Pt will be able to perform sit to stand using LRAD and at least 1 UE assist in order to stand without increase in baseline pain in order to demonstrate improved pain management and safety with transfers 06/15/24: Pt able to stand with LRAD and 1 hand assist, no ankle pain 07/12/24: can do STS with LRAD and 1 hand assist, no ankle pain; reports mild knee pain STG Duration 6 weeks MET Principal Planner Goal (LTG) Pt will be able to perform at least 5 sit to stands from standard chair without UE assist, if appropriate, in order to demonstrate improved BLE strength for transfers and initial standing balance 07/12/24: 10 STS w/o UE assist from 21 table, reports B knee pain LTG Duration 12 weeks PROGRESSING Three Impairment balance- TUG score 21 seconds Residential Goal (LTG) Pt will decrease TUG time using LRAD to less than 12 seconds in order to meet safe community ambulation distance/ speed in addition to improved balance to decrease fall risk LTG Duration 12 weeks Two Impairment strength- limitations in R ankle strength Principal Planner Goal (LTG) Pt will improve R ankle global strength to at least 4/5 in order to demonstrate increased strength for gait, stability during stance, and balance during transfers 06/15/24: 4/5 for DF, Pf, 4-/5 inv, 4/5 eversion 07/12/24: 4/5 for DF/EV/PF ( sitting), 4-/5 for inv (pain w / resisted inv at lateral malleolus) LTG Duration 12 weeks PROGRESSING One Impairment ROM- limitations in DF and eversion ROM Residential Goal (LTG) Pt will improve R ankle dorsiflexion AROM to at least 5 deg and R ankle eversion AROM to at least 10 deg in order to demonstrate improved gait mechanics and ankle ROM for functional mobility 06/15/24: 50 deg PF, 4 deg DF, 15 deg eversion, 28 deg inversion 07/12/24: 5 deg DF, 50 deg PF, 15 deg eversion, 28 deg inversion LTG Duration 12 weeks PROGRESSING, MET 07/12 Assessment Summary Assessment Pt responded well to ther ex today with focus on ankle mobility and foot intrinics strengthening HEP review with reports of pain reduction 06/10 >01/08. Education on importance of performance of ankle HEP which supported increased stride and foot clearance with less to no UE pressure on cane as tx session progressed. Physical Therapy Plan Frequency and Duration Frequency of Treatment 2x/Week Duration of treatment (weeks) 12 Plan of Care Start Date 05/16/24 Plan of Care End Date 08/11/24 Therapeutic Interventions Therapeutic Interventions Balance Training,Gait Training ,Home Exercise Program,Joint Mobilizations,Manual Therapy, Neuromuscular Re-education, Orthotic/Prosthetic Management ,Patient/Caregiver Education, Self-Care/Home Management, Sensory Integration,Soft Tissue Mobilization,Taping, Therapeutic Activities, Therapeutic Exercises Modalities Cold Pack/Ice Massage Next Visit Focus/Plan Next Note Type Treatment Note Next Visit Plan blood pressure pre and w/ activity Next add Balance: foam pad, continue shuttle balance, leg press sl vs dl, resisted hip 3 way review and tolerance, SKY calf stretch, buttock tap to chair (lower elevation as able 20). check tolerance to LAQ band level 3, side steps, balance. progress to STS from high surface with less UE support *per pt incorporate uneven surface walking for more confidence walking on grass. POC: progress to STS, leg pess , step up
--- NOTE | 2024-07-31 09:00 | PT.OTN ---
Current Diagnoses Stiffness of left knee, not elsewhere classified (07/31/24) Stiffness of right ankle, not elsewhere classified (07/31/24) Other lack of coordination (07/31/24) Weakness (07/31/24) Displaced fracture of lateral malleolus of right fibula, initial encounter for closed fracture (07/31/24) Physical Therapy Treatment Note PT-OP-A Visit Information Start: 05/16/24 10:33 Freq: Status: Active Protocol: Document 07/31/24 08:19 SP (Rec: 07/31/24 09:00 SP [id number]) Out-Patient Physical Therapy Visit Information Visit Information Visit Type Treatment Note Visit Start Time 08:19 Visit Stop Time 09:00 Visit Number 17 Number of [employer] Visits 4 Evaluation Information Evaluation Date 05/16/24 Precautions Precautions monitor vitals w/ exercise Afib, heart disease, fall risk PT-OP-B Current Condition Start: 05/16/24 10:33 Freq: Status: Active Protocol: Document 05/16/24 10:35 NM (Rec: 05/16/24 12:04 NM [id number]) Current Condition History of Current Condition Onset Date 2-3 months ago (pt unsure of date) Current Complaints pain, transfers, mobility, gait, balance, falls History of Current Condition Pt presents with RLE pain and limited mobility following high lateral malleolus fracture. States all healed, has Xray showing healed. He reports pain with WB on RLE during transfers and gait. Using spc in R hand, uses a FWW for household. 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 He reports that he still has L knee pain (aches and shooting pain, arch pain in foot) especially with attempting to rise from a chair. Pt reports that he broke his RLE after falling in the bathroom in the middle of the night, fell against the wall. He states he lost his balance and fell. He was in boot and had braces. Currently not in a brace or boot. He has 2 steps to get into the house, has a rail; no stairs inside the home. Hand rails only in shower, has a high rise toilet. No other injuries to his RLE. 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 However, he has had cardioversion before several times to correct rhythm. Significant PMH for blood pressure, possible aneurysm per pt, water retention in BLE. Reports several falls overall. Pt lives with , who attended evaluation and helped provide hx Prior Treatments and Tests 04/07/24 clinic appt with referral states radiographs reveal healed fracture Prior Functional Status Baseline Function- ADL's Independent Baseline Function- Mobility Independent Baseline Function- Gait 1-2 blocks Baseline Function- Recreation/Hobbies retired: golf (hasn't done since before TKA), fishing, clam digging, hunting Current Functional Impairments (Reported) Functional Limitations- ADL's balance and pain: dressing, shoes Functional Limitations- Mobility/Gait transfers (STS) ambulation with FWW and spc Functional Limitations- Recreation/ retired: golf (hasn't done Hobbies since before TKA), fishing, clam digging, hunting wants to get yard work PT-OP-C Subjective Start: 05/16/24 10:33 Freq: Status: Active Protocol: Document 07/31/24 08:19 SP (Rec: 07/31/24 09:00 SP [id number]) OP-PT Subjective Patient Comments Patient Comments Pt reports the front of his L ankle sore and bottom of both feeting hurting. Demonstrates short stride and decreased foot clearance using wooden cane in RUE. PT-OP-E Functional Tests Start: 05/16/24 10:33 Freq: Status: Active Protocol: Document 05/16/24 10:35 NM (Rec: 05/16/24 12:04 NM [id number]) Functional Tests 6 Minute Walk Test Distance 567 ft Device Used spc in L hand Comments 1 stumble w/o LOB; has R heel pain after 4 minutes Five Times Sit to Stand Test Score unable to complete due to L knee pain Comments requires 2 hand assist to rise Timed Up and Go (TUG) Score 21 seconds Comments spc in L hand (corrected height) PT-OP-F Manual Assessment Start: 05/16/24 10:33 Freq: Status: Active Protocol: Document 05/16/24 10:35 NM (Rec: 05/16/24 12:04 NM [id number]) Manual Assessments Soft Tissue Assessment Soft Tissue Mobility Assessment Increased edema in BLE, worse at ankles/dorsal feet. Limitations in B heel cord length Joint Mobility Assessment Joint Mobility Assessment No instability at R ankle or knee, but limited ray and talocrural mobility PT-OP-G Mobility & Gait Start: 05/16/24 10:33 Freq: Status: Active Protocol: Document 05/16/24 10:35 NM (Rec: 05/16/24 12:04 NM [id number]) OP Gait Assessment Gait Gait Assistance Required: Standby Assistance Distance (Feet) 150 Assistive Devices Assistive Device Gait Belt,Straight Cane Gait Deviations General Gait Pattern Decreased Stride Length, Decreased Feet Clearance,Wide Based Gait Factors Limiting Gait Function Factors Limiting Gait Function Decreased Activity Tolerance, Decreased Sensation,Limited Range of Motion,Pain,Poor Balance Comments Gait Comments Performed at beginning of evaluation. Pt demos antalgic gait and uses spc in R hand, leaning heavily on spc for assistance. Spc placed far from body. Demos B foot ER, quick heel off after weight acceptance. Wide based gait. Uses custom wood spc PT-OP-H Neuro Start: 05/16/24 10:33 Freq: Status: Active Protocol: Document 05/16/24 10:35 NM (Rec: 05/16/24 12:04 NM [id number]) Sensation Evaluation Comments Summary Comments BLE equally intact to light touch sensation PT-OP-J Posture/Palpation/Skin Start: 05/16/24 10:33 Freq: Status: Active Protocol: Document 05/16/24 10:35 NM (Rec: 05/16/24 12:04 NM [id number]) Posture Evaluation Comments Posture Comments Demos wide base stance, decreased WB on RLE Palpation Assessment Location R leg Palpation Findings Edema,Soft Tissue Tightness Palpation Details No tenderness to palpation along medial or lateral malleoli or along entire fibula from malleoli to fibular head. No tenderness along tibia. Tenderness along talocrural joint near mortise Increased edema bilaterally, especially along dorsal foot and ankle, non-pitting Skin Assessment Circumference Measurement L ankle Location figure 8: 65 cm R ankle Location figure 8: 60 cm Comments 30 cm across malleoli Other Assessments Skin Assessment Comments BLE ankle/feet skin is tight due to edema, reddened and dry /flaky PT-OP-K Range of Motion Start: 05/16/24 10:33 Freq: Status: Active Protocol: Document 07/12/24 08:12 NM (Rec: 07/12/24 09:02 NM [id number]) Ankle and Foot Goniometric Range of Motion Ankle and Foot Right Dorsiflexion with Knee Flexed 3 Plantarflexion 45 Inversion 15 Eversion 2 Comments IE: 0 deg DF, 45 deg PF, 15 deg inv, 2 deg ev; Mild pain with AROM DF, inversion 06/15/24: 50 deg PF, 4 deg DF, 15 deg eversion, 28 deg inversion 07/12/24: 5 deg DF, 50 deg PF, 15 deg everesion, 28 deg inversion PT-OP-M Strength Start: 05/16/24 10:33 Freq: Status: Active Protocol: Document 07/12/24 08:12 NM (Rec: 07/12/24 09:02 NM [id number]) Hip Strength Hip Manual Muscle Testing Left Flexion (L2) 4 Good Extension (S1) 4 Good Abduction 4 Good Adduction 4 Good External Rotation 4 Good Internal Rotation 4 Good Right Flexion (L2) 4- Good- Extension (S1) 4- Good- Abduction 4- Good- Adduction 4- Good- External Rotation 4- Good- Internal Rotation 4- Good- Comments No pain Knee Strength Knee Manual Muscle Testing Left Flexion (S2) 4 Good Extension (L3) 4 Good Comments No pain Right Flexion (S2) 4- Good- Extension (L3) 4- Good- Comments No pain Ankle/Foot Strength Ankle and Foot Manual Muscle Testing Left Dorsiflexion (L4) 4 Good Plantarflexion (S1) 4 Good Inversion 4 Good Eversion (S1) 4 Good Comments All tested in sitting (no standing PF due to time) Right Dorsiflexion (L4) 4- Good- Plantarflexion (S1) 4 Good Inversion 3+ Fair+ Eversion (S1) 3+ Fair+ Comments All tested in sitting (no standing PF due to time) 06/15/24: 4/5 for DF, Pf, 4-/5 inv, 4/5 eversion 07/12/24: 4/5 for DF/EV/PF ( sitting), 4-/5 for inv (pain w / resisted inv at lateral malleolus) PT-OP-Q Treatments Start: 05/16/24 10:33 Freq: Status: Active Protocol: Document 07/31/24 08:19 SP (Rec: 07/31/24 09:00 SP [id number]) Therapeutic Exercises Sitting Exercises foot intrinsics Sitting Exercise Name 1. arch raise, 2. toe flex, 3. toe ext 4. toe abd Side bilateral Reps/Minutes x15 reps each Comments cueing and demonstration follow for correct execution sit<> stand Sitting Exercise Name no UE- unable to Side bilateral Equipment Used 20 table Reps/Minutes x10 reps Comments cued wt shift fwd not use legs ontable- improved after first 2 reps Standing Exercises step ups Standing Exercise Name step up/back down repeated same leg then switch- HEP reviewed Side bilateral Resistance AROM Equipment Used 6 step, light 1 HR opp LE leading Reps/Minutes 20 reps each LE Comments with cueing for push through heel, knee flexion and strong quad activation ankle mobility Standing Exercise Name ankle & knee mobility Side bilateral Resistance AROM Equipment Used rail support, foot on 2nd step Reps/Minutes 10 Other Exercises self STM Other Exercise Name plantar fascia Side right Equipment Used tennis ball roll gentle pressure massage Reps/Minutes 20 sec Comments cued light pressure not cause irritation Gait Training Gait Activity 6MWT Device Used [facility] [place] Level of Assistance Mod I Surface carpet/tile Distance/Duration 600 ft Treatment Focus stride, fooot clearance, endurance Comments cued longer stride, B heel clearance heel toe tends to scuff heels more at end distance. Neuro Re-Education Treatment Balance Activities foam Details 1. head turns (NBOS 2 between feet)2. calf raises Surface on foam Equipment near rail Reps/Duration 1. 1 min total unsupported2. x15 very light touch 2 fingers Comments sways but self recovery, contact table x2 for support Self-Care/Home Management Treatment Education Patient Education Home Exercise Program,Pain Management Other Education Discussed performing foot HEP and self STMs for plantarfascia/foot pain relief . Ask Rhuemotolgist if he is on waiting list, appt 3rd week Oct. PT-OP-T Assessment and Plan Start: 05/16/24 10:33 Freq: Status: Active Protocol: Document 07/31/24 08:19 SP (Rec: 07/31/24 09:00 SP [id number]) Physical Therapy Assessment Goals Five Impairment gait- 6 MWT distance with spc 567 ft Short Term Goal (STG) Pt will be able to ambulate using LRAD for at least 500 ft without increase in baseline pain in R ankle or L knee in order to demonstrate improved activity tolerance 06/15/24: 580 ft w/ 3/10 L ankle pain (decreased in pain from 03/10) STG Duration 6 weeks MET Fdc Goal (LTG) Pt will improve 6 MWT distance using LRAD by at least 200 ft (1 MCID) in order to demonstrate improved gait speed, endurance, and BLE strength for household & community ambulation 07/31/24: gait 600 ft R ankle felt ok, L knee and L top ankle stiffness and plantarfascia soreness L>R. LTG Duration 12 weeks prgressing 07/31/24 Four Impairment transfers- difficulty with sit to stand Short Term Goal (STG) Pt will be able to perform sit to stand using LRAD and at least 1 UE assist in order to stand without increase in baseline pain in order to demonstrate improved pain management and safety with transfers 06/15/24: Pt able to stand with LRAD and 1 hand assist, no ankle pain 07/12/24: can do STS with LRAD and 1 hand assist, no ankle pain; reports mild knee pain STG Duration 6 weeks MET Director Of Financial Planning Goal (LTG) Pt will be able to perform at least 5 sit to stands from standard chair without UE assist, if appropriate, in order to demonstrate improved BLE strength for transfers and initial standing balance 07/12/24: 10 STS w/o UE assist from 21 table, reports B knee pain 07/31/24: 10 STS /s UE support from 20 table but pain in B knees 06/10. LTG Duration 12 weeks PROGRESSING 07/31/24 Three Impairment balance- TUG score 21 seconds Fdc Goal (LTG) Pt will decrease TUG time using LRAD to less than 12 seconds in order to meet safe community ambulation distance/ speed in addition to improved balance to decrease fall risk LTG Duration 12 weeks Two Impairment strength- limitations in R ankle strength Director Of Financial Planning Goal (LTG) Pt will improve R ankle global strength to at least 4/5 in order to demonstrate increased strength for gait, stability during stance, and balance during transfers 06/15/24: 4/5 for DF, Pf, 4-/5 inv, 4/5 eversion 07/12/24: 4/5 for DF/EV/PF ( sitting), 4-/5 for inv (pain w / resisted inv at lateral malleolus) LTG Duration 12 weeks PROGRESSING One Impairment ROM- limitations in DF and eversion ROM Fdc Goal (LTG) Pt will improve R ankle dorsiflexion AROM to at least 5 deg and R ankle eversion AROM to at least 10 deg in order to demonstrate improved gait mechanics and ankle ROM for functional mobility 06/15/24: 50 deg PF, 4 deg DF, 15 deg eversion, 28 deg inversion 07/12/24: 5 deg DF, 50 deg PF, 15 deg eversion, 28 deg inversion LTG Duration 12 weeks PROGRESSING, MET 07/12 Assessment Summary Assessment Pt demonstrates little increase in gait distance during 6MWT with lessening of dorsal foot pain. Improves tarsal adn MTP mobility after foot HEP performance. Noted little sways unsupported and head turns on foam balance activity but able center correct self without UE support. Education provided for continue gait and HEP performance when sitting to support plantar fascia pain reduction when sits down as improved pain reduction by end tx today. Physical Therapy Plan Frequency and Duration Frequency of Treatment 2x/Week Duration of treatment (weeks) 12 Plan of Care Start Date 05/16/24 Plan of Care End Date 08/11/24 Therapeutic Interventions Therapeutic Interventions Balance Training,Gait Training ,Home Exercise Program,Joint Mobilizations,Manual Therapy, Neuromuscular Re-education, Orthotic/Prosthetic Management ,Patient/Caregiver Education, Self-Care/Home Management, Sensory Integration,Soft Tissue Mobilization,Taping, Therapeutic Activities, Therapeutic Exercises Modalities Cold Pack/Ice Massage Next Visit Focus/Plan Next Note Type Treatment Note Next Visit Plan blood pressure pre and w/ activity Assess response to foam balance. Next tx add dynamic bal: fwd/bwd/lateral, continue shuttle balance, leg press sl vs dl, resisted hip 3 way review and tolerance, SKY calf stretch, buttock tap to chair (lower elevation as able 20). check tolerance to LAQ band level 3, side steps, balance. progress to STS from high surface with less UE support *per pt incorporate uneven surface walking for more confidence walking on grass. POC: progress to STS, leg pess , step up
--- NOTE | 2024-08-02 10:38 | PT.OTN ---
Current Diagnoses Stiffness of left knee, not elsewhere classified (08/02/24) Stiffness of right ankle, not elsewhere classified (08/02/24) Other lack of coordination (08/02/24) Weakness (08/02/24) Displaced fracture of lateral malleolus of right fibula, initial encounter for closed fracture (08/02/24) Physical Therapy Treatment Note PT-OP-A Visit Information Start: 05/16/24 10:33 Freq: Status: Active Protocol: Document 08/02/24 09:03 NM (Rec: 08/02/24 09:48 NM [id number]) Out-Patient Physical Therapy Visit Information Visit Information Visit Type Progress Note Visit Start Time 09:04 Visit Stop Time 09:44 Visit Number 18 Evaluation Information Evaluation Date 05/16/24 Precautions Precautions monitor vitals w/ exercise Afib, heart disease, fall risk PT-OP-B Current Condition Start: 05/16/24 10:33 Freq: Status: Active Protocol: Document 05/16/24 10:35 NM (Rec: 05/16/24 12:04 NM [id number]) Current Condition History of Current Condition Onset Date 2-3 months ago (pt unsure of date) Current Complaints pain, transfers, mobility, gait, balance, falls History of Current Condition Pt presents with RLE pain and limited mobility following high lateral malleolus fracture. States all healed, has Xray showing healed. He reports pain with WB on RLE during transfers and gait. Using spc in R hand, uses a FWW for household. 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 He reports that he still has L knee pain (aches and shooting pain, arch pain in foot) especially with attempting to rise from a chair. Pt reports that he broke his RLE after falling in the bathroom in the middle of the night, fell against the wall. He states he lost his balance and fell. He was in boot and had braces. Currently not in a brace or boot. He has 2 steps to get into the house, has a rail; no stairs inside the home. Hand rails only in shower, has a high rise toilet. No other injuries to his RLE. 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 However, he has had cardioversion before several times to correct rhythm. Significant PMH for blood pressure, possible aneurysm per pt, water retention in BLE. Reports several falls overall. Pt lives with , who attended evaluation and helped provide hx Prior Treatments and Tests 04/07/24 clinic appt with referral states radiographs reveal healed fracture Prior Functional Status Baseline Function- ADL's Independent Baseline Function- Mobility Independent Baseline Function- Gait 1-2 blocks Baseline Function- Recreation/Hobbies retired: golf (hasn't done since before TKA), fishing, clam digging, hunting Current Functional Impairments (Reported) Functional Limitations- ADL's balance and pain: dressing, shoes Functional Limitations- Mobility/Gait transfers (STS) ambulation with FWW and spc Functional Limitations- Recreation/ retired: golf (hasn't done Hobbies since before TKA), fishing, clam digging, hunting wants to get yard work PT-OP-C Subjective Start: 05/16/24 10:33 Freq: Status: Active Protocol: Document 08/02/24 09:03 NM (Rec: 08/02/24 09:48 NM [id number]) OP-PT Subjective Patient Comments Patient Comments Pt reports L knee sore but states R ankle is going well. Reports no difficulty with HEP , states does every evening but does not do all of the exercises. PT and pt discussed plan of care ending in 2 visits; pt and PT agreed to discharge as pt's R ankle has no limitation; current limitations due to L knee but pt following up with rheumatology in upcoming weeks to address PT-OP-E Functional Tests Start: 05/16/24 10:33 Freq: Status: Active Protocol: Document 05/16/24 10:35 NM (Rec: 05/16/24 12:04 NM [id number]) Functional Tests 6 Minute Walk Test Distance 567 ft Device Used spc in L hand Comments 1 stumble w/o LOB; has R heel pain after 4 minutes Five Times Sit to Stand Test Score unable to complete due to L knee pain Comments requires 2 hand assist to rise Timed Up and Go (TUG) Score 21 seconds Comments spc in L hand (corrected height) PT-OP-F Manual Assessment Start: 05/16/24 10:33 Freq: Status: Active Protocol: Document 05/16/24 10:35 NM (Rec: 05/16/24 12:04 NM [id number]) Manual Assessments Soft Tissue Assessment Soft Tissue Mobility Assessment Increased edema in BLE, worse at ankles/dorsal feet. Limitations in B heel cord length Joint Mobility Assessment Joint Mobility Assessment No instability at R ankle or knee, but limited ray and talocrural mobility PT-OP-G Mobility & Gait Start: 05/16/24 10:33 Freq: Status: Active Protocol: Document 05/16/24 10:35 NM (Rec: 05/16/24 12:04 NM [id number]) OP Gait Assessment Gait Gait Assistance Required: Standby Assistance Distance (Feet) 150 Assistive Devices Assistive Device Gait Belt,Straight Cane Gait Deviations General Gait Pattern Decreased Stride Length, Decreased Feet Clearance,Wide Based Gait Factors Limiting Gait Function Factors Limiting Gait Function Decreased Activity Tolerance, Decreased Sensation,Limited Range of Motion,Pain,Poor Balance Comments Gait Comments Performed at beginning of evaluation. Pt demos antalgic gait and uses spc in R hand, leaning heavily on spc for assistance. Spc placed far from body. Demos B foot ER, quick heel off after weight acceptance. Wide based gait. Uses custom wood spc PT-OP-H Neuro Start: 05/16/24 10:33 Freq: Status: Active Protocol: Document 05/16/24 10:35 NM (Rec: 05/16/24 12:04 NM [id number]) Sensation Evaluation Comments Summary Comments BLE equally intact to light touch sensation PT-OP-J Posture/Palpation/Skin Start: 05/16/24 10:33 Freq: Status: Active Protocol: Document 05/16/24 10:35 NM (Rec: 05/16/24 12:04 NM [id number]) Posture Evaluation Comments Posture Comments Demos wide base stance, decreased WB on RLE Palpation Assessment Location R leg Palpation Findings Edema,Soft Tissue Tightness Palpation Details No tenderness to palpation along medial or lateral malleoli or along entire fibula from malleoli to fibular head. No tenderness along tibia. Tenderness along talocrural joint near mortise Increased edema bilaterally, especially along dorsal foot and ankle, non-pitting Skin Assessment Circumference Measurement L ankle Location figure 8: 65 cm R ankle Location figure 8: 60 cm Comments 30 cm across malleoli Other Assessments Skin Assessment Comments BLE ankle/feet skin is tight due to edema, reddened and dry /flaky PT-OP-K Range of Motion Start: 05/16/24 10:33 Freq: Status: Active Protocol: Document 08/02/24 09:03 NM (Rec: 08/02/24 09:48 NM [id number]) Ankle and Foot Goniometric Range of Motion Ankle and Foot Left Dorsiflexion with Knee Flexed 3 Plantarflexion 40 Inversion 20 Eversion 2 Right Dorsiflexion with Knee Flexed 3 Plantarflexion 45 Inversion 15 Eversion 2 Comments IE: 0 deg DF, 45 deg PF, 15 deg inv, 2 deg ev; Mild pain with AROM DF, inversion 06/15/24: 50 deg PF, 4 deg DF, 15 deg eversion, 28 deg inversion 07/12/24: 5 deg DF, 50 deg PF, 15 deg everesion, 28 deg inversion 08/02/24: 6 deg DF, 15 deg eversion, 30 deg inversion, 50 deg PF PT-OP-M Strength Start: 05/16/24 10:33 Freq: Status: Active Protocol: Document 08/02/24 09:03 NM (Rec: 08/02/24 09:48 NM [id number]) Ankle/Foot Strength Ankle and Foot Manual Muscle Testing Left Dorsiflexion (L4) 4 Good Plantarflexion (S1) 4 Good Inversion 4 Good Eversion (S1) 4 Good Comments All tested in sitting (no standing PF due to time) Right Dorsiflexion (L4) 4- Good- Plantarflexion (S1) 4 Good Inversion 3+ Fair+ Eversion (S1) 3+ Fair+ Comments All tested in sitting (no standing PF due to time) 06/15/24: 4/5 for DF, Pf, 4-/5 inv, 4/5 eversion 07/12/24: 4/5 for DF/EV/PF ( sitting), 4-/5 for inv (pain w / resisted inv at lateral malleolus) 08/02/24: 4/5 for all; PF tested in sitting PT-OP-Q Treatments Start: 05/16/24 10:33 Freq: Status: Active Protocol: Document 08/02/24 09:03 NM (Rec: 08/02/24 09:48 NM [id number]) Therapeutic Exercises Sitting Exercises foot intrinsics Sitting Exercise Name 1. arch raise, 2. toe flex, 3. toe ext 4. toe abd Side bilateral Resistance toe flex with level 2 band Reps/Minutes x10 reps each Comments cued for correct execution Standing Exercises hip 3 way Standing Exercise Name HEP reviewed- updated TB ankles vs thighs (provided TB for home) Side bilateral Resistance level 3 band at thighs Equipment Used 1 hand support for balance Reps/Minutes 10 ea Comments good control and upright posture; cued neutral foot positioning Other Exercises self STM Other Exercise Name plantar fascia Side right Equipment Used tennis ball roll gentle pressure massage Reps/Minutes 30 sec Comments cued light pressure not cause irritation Neuro Re-Education Treatment Balance Activities TUG Surface stable Equipment spc Comments 15 seconds foam Surface close SBA Equipment no hand support 1-3 and 7-8 , 1 finger support 4-6 near rail Reps/Duration 60 ea Comments 1. NBOS 2. head turns 3. head nods 4. calf raises, 20 5. toe raises, 20 6. step up, 10 ea 7. obstacles under mat, 2 sets x 8 ft w/ spc 8. lateral step on mat 4x8 ft ea, no obstacles PT-OP-T Assessment and Plan Start: 05/16/24 10:33 Freq: Status: Active Protocol: Document 08/02/24 09:03 NM (Rec: 08/02/24 09:48 NM [id number]) Physical Therapy Assessment Goals Five Impairment gait- 6 MWT distance with spc 567 ft Short Term Goal (STG) Pt will be able to ambulate using LRAD for at least 500 ft without increase in baseline pain in R ankle or L knee in order to demonstrate improved activity tolerance 06/15/24: 580 ft w/ 3/10 L ankle pain (decreased in pain from 03/10) STG Duration 6 weeks MET [facility] Goal (LTG) Pt will improve 6 MWT distance using LRAD by at least 200 ft (1 MCID) in order to demonstrate improved gait speed, endurance, and BLE strength for household & community ambulation 07/31/24: gait 600 ft R ankle felt ok, L knee and L top ankle stiffness and plantarfascia soreness L>R. 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[employer] Software Engineer Goal (LTG) Pt will decrease TUG time using LRAD to less than 12 seconds in order to meet safe community ambulation distance/ speed in addition to improved balance to decrease fall risk 08/02/24: 15 seconds, 14 seconds LTG Duration 12 weeks PROGRESSING Two Impairment strength- limitations in R ankle strength [facility] Goal (LTG) Pt will improve R ankle global strength to at least 4/5 in order to demonstrate increased strength for gait, stability during stance, and balance during transfers 06/15/24: 4/5 for DF, Pf, 4-/5 inv, 4/5 eversion 07/12/24: 4/5 for DF/EV/PF ( sitting), 4-/5 for inv (pain w / resisted inv at lateral malleolus) 08/02/24: 4/5 for all ( plantarflexion tested in sitting), no pain wiht any resisted motion LTG Duration 12 weeks MET One Impairment ROM- limitations in DF and eversion ROM H[employer] Software Engineer Goal (LTG) Pt will improve R ankle dorsiflexion AROM to at least 5 deg and R ankle eversion AROM to at least 10 deg in order to demonstrate improved gait mechanics and ankle ROM for functional mobility 06/15/24: 50 deg PF, 4 deg DF, 15 deg eversion, 28 deg inversion 07/12/24: 5 deg DF, 50 deg PF, 15 deg eversion, 28 deg inversion 08/02/24: 6 deg DF, 15 deg eversion, 30 deg inversion, 50 deg PF LTG Duration 12 weeks MET 07/12/24 Progress Towards Goals Progress Towards Goals Progressing Toward Goals,Slow Progress due to Medical Issues ,Goals Met Assessment Summary Assessment Pt tolerated session well. Met 2 goals today for strength and ankle ROM. Continues to have limitations with TUG due to STS time because B knee pain. Demos improved trunk and ankle stability on unstable surfaces, able to move in multiple directions with close SBA from PT. Has 2 instances of increased trunk sway with head movement but no LOB, able to correct without UE assistance. Progressed resistance hip 3 way in clinic , moved band up to thighs again due to resistance change . Physical Therapy Plan Frequency and Duration Frequency of Treatment 2x/Week Duration of treatment (weeks) 12 Plan of Care Start Date 05/16/24 Plan of Care End Date 08/11/24 Therapeutic Interventions Therapeutic Interventions Balance Training,Gait Training ,Home Exercise Program,Joint Mobilizations,Manual Therapy, Neuromuscular Re-education, Orthotic/Prosthetic Management ,Patient/Caregiver Education, Self-Care/Home Management, Sensory Integration,Soft Tissue Mobilization,Taping, Therapeutic Activities, Therapeutic Exercises Modalities Cold Pack/Ice Massage Next Visit Focus/Plan Next Note Type Treatment Note Next Visit Plan blood pressure pre and w/ activity d/c in 2 visits; cont foam balance. cont dynamic bal: fwd /bwd/lateral SKY calf stretch, buttock tap to chair (lower elevation as able 20). check tolerance to LAQ band level 3, side steps, balance. progress to STS from high surface with less UE support *per pt incorporate uneven surface walking for more confidence walking on grass. POC: progress to STS, leg pess , step up
--- NOTE | 2024-08-02 10:40 | PT.OTN ---
Current Diagnoses Stiffness of left knee, not elsewhere classified (08/02/24) Stiffness of right ankle, not elsewhere classified (08/02/24) Other lack of coordination (08/02/24) Weakness (08/02/24) Displaced fracture of lateral malleolus of right fibula, initial encounter for closed fracture (08/02/24) Physical Therapy Treatment Note PT-OP-A Visit Information Start: 05/16/24 10:33 Freq: Status: Active Protocol: Document 08/02/24 09:03 NM (Rec: 08/02/24 09:48 NM [id number]) Out-Patient Physical Therapy Visit Information Visit Information Visit Type Progress Note Visit Start Time 09:04 Visit Stop Time 09:44 Visit Number 18 Evaluation Information Evaluation Date 05/16/24 Precautions Precautions monitor vitals w/ exercise Afib, heart disease, fall risk PT-OP-B Current Condition Start: 05/16/24 10:33 Freq: Status: Active Protocol: Document 05/16/24 10:35 NM (Rec: 05/16/24 12:04 NM [id number]) Current Condition History of Current Condition Onset Date 2-3 months ago (pt unsure of date) Current Complaints pain, transfers, mobility, gait, balance, falls History of Current Condition Pt presents with RLE pain and limited mobility following high lateral malleolus fracture. States all healed, has Xray showing healed. He reports pain with WB on RLE during transfers and gait. Using spc in R hand, uses a FWW for household. 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 He reports that he still has L knee pain (aches and shooting pain, arch pain in foot) especially with attempting to rise from a chair. Pt reports that he broke his RLE after falling in the bathroom in the middle of the night, fell against the wall. He states he lost his balance and fell. He was in boot and had braces. Currently not in a brace or boot. He has 2 steps to get into the house, has a rail; no stairs inside the home. Hand rails only in shower, has a high rise toilet. No other injuries to his RLE. 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 However, he has had cardioversion before several times to correct rhythm. Significant PMH for blood pressure, possible aneurysm per pt, water retention in BLE. Reports several falls overall. Pt lives with , who attended evaluation and helped provide hx Prior Treatments and Tests 04/07/24 clinic appt with referral states radiographs reveal healed fracture Prior Functional Status Baseline Function- ADL's Independent Baseline Function- Mobility Independent Baseline Function- Gait 1-2 blocks Baseline Function- Recreation/Hobbies retired: golf (hasn't done since before TKA), fishing, clam digging, hunting Current Functional Impairments (Reported) Functional Limitations- ADL's balance and pain: dressing, shoes Functional Limitations- Mobility/Gait transfers (STS) ambulation with FWW and spc Functional Limitations- Recreation/ retired: golf (hasn't done Hobbies since before TKA), fishing, clam digging, hunting wants to get yard work PT-OP-C Subjective Start: 05/16/24 10:33 Freq: Status: Active Protocol: Document 08/02/24 09:03 NM (Rec: 08/02/24 09:48 NM [id number]) OP-PT Subjective Patient Comments Patient Comments Pt reports L knee sore but states R ankle is going well. Reports no difficulty with HEP , states does every evening but does not do all of the exercises. PT and pt discussed plan of care ending in 2 visits; pt and PT agreed to discharge as pt's R ankle has no limitation; current limitations due to L knee but pt following up with rheumatology in upcoming weeks to address PT-OP-E Functional Tests Start: 05/16/24 10:33 Freq: Status: Active Protocol: Document 05/16/24 10:35 NM (Rec: 05/16/24 12:04 NM [id number]) Functional Tests 6 Minute Walk Test Distance 567 ft Device Used spc in L hand Comments 1 stumble w/o LOB; has R heel pain after 4 minutes Five Times Sit to Stand Test Score unable to complete due to L knee pain Comments requires 2 hand assist to rise Timed Up and Go (TUG) Score 21 seconds Comments spc in L hand (corrected height) PT-OP-F Manual Assessment Start: 05/16/24 10:33 Freq: Status: Active Protocol: Document 05/16/24 10:35 NM (Rec: 05/16/24 12:04 NM [id number]) Manual Assessments Soft Tissue Assessment Soft Tissue Mobility Assessment Increased edema in BLE, worse at ankles/dorsal feet. Limitations in B heel cord length Joint Mobility Assessment Joint Mobility Assessment No instability at R ankle or knee, but limited ray and talocrural mobility PT-OP-G Mobility & Gait Start: 05/16/24 10:33 Freq: Status: Active Protocol: Document 05/16/24 10:35 NM (Rec: 05/16/24 12:04 NM [id number]) OP Gait Assessment Gait Gait Assistance Required: Standby Assistance Distance (Feet) 150 Assistive Devices Assistive Device Gait Belt,Straight Cane Gait Deviations General Gait Pattern Decreased Stride Length, Decreased Feet Clearance,Wide Based Gait Factors Limiting Gait Function Factors Limiting Gait Function Decreased Activity Tolerance, Decreased Sensation,Limited Range of Motion,Pain,Poor Balance Comments Gait Comments Performed at beginning of evaluation. Pt demos antalgic gait and uses spc in R hand, leaning heavily on spc for assistance. Spc placed far from body. Demos B foot ER, quick heel off after weight acceptance. Wide based gait. Uses custom wood spc PT-OP-H Neuro Start: 05/16/24 10:33 Freq: Status: Active Protocol: Document 05/16/24 10:35 NM (Rec: 05/16/24 12:04 NM [id number]) Sensation Evaluation Comments Summary Comments BLE equally intact to light touch sensation PT-OP-J Posture/Palpation/Skin Start: 05/16/24 10:33 Freq: Status: Active Protocol: Document 05/16/24 10:35 NM (Rec: 05/16/24 12:04 NM [id number]) Posture Evaluation Comments Posture Comments Demos wide base stance, decreased WB on RLE Palpation Assessment Location R leg Palpation Findings Edema,Soft Tissue Tightness Palpation Details No tenderness to palpation along medial or lateral malleoli or along entire fibula from malleoli to fibular head. No tenderness along tibia. Tenderness along talocrural joint near mortise Increased edema bilaterally, especially along dorsal foot and ankle, non-pitting Skin Assessment Circumference Measurement L ankle Location figure 8: 65 cm R ankle Location figure 8: 60 cm Comments 30 cm across malleoli Other Assessments Skin Assessment Comments BLE ankle/feet skin is tight due to edema, reddened and dry /flaky PT-OP-K Range of Motion Start: 05/16/24 10:33 Freq: Status: Active Protocol: Document 08/02/24 09:03 NM (Rec: 08/02/24 09:48 NM [id number]) Ankle and Foot Goniometric Range of Motion Ankle and Foot Left Dorsiflexion with Knee Flexed 3 Plantarflexion 40 Inversion 20 Eversion 2 Right Dorsiflexion with Knee Flexed 6 Plantarflexion 50 Inversion 15 Eversion 30 Comments IE: 0 deg DF, 45 deg PF, 15 deg inv, 2 deg ev; Mild pain with AROM DF, inversion 06/15/24: 50 deg PF, 4 deg DF, 15 deg eversion, 28 deg inversion 07/12/24: 5 deg DF, 50 deg PF, 15 deg everesion, 28 deg inversion 08/02/24: 6 deg DF, 15 deg eversion, 30 deg inversion, 50 deg PF PT-OP-M Strength Start: 05/16/24 10:33 Freq: Status: Active Protocol: Document 08/02/24 09:03 NM (Rec: 08/02/24 09:48 NM [id number]) Ankle/Foot Strength Ankle and Foot Manual Muscle Testing Left Dorsiflexion (L4) 4 Good Plantarflexion (S1) 4 Good Inversion 4 Good Eversion (S1) 4 Good Comments All tested in sitting (no standing PF due to time) Right Dorsiflexion (L4) 4 Good Plantarflexion (S1) 4 Good Inversion 4 Good Eversion (S1) 4 Good Comments All tested in sitting (no standing PF due to time) 06/15/24: 4/5 for DF, Pf, 4-/5 inv, 4/5 eversion 07/12/24: 4/5 for DF/EV/PF ( sitting), 4-/5 for inv (pain w / resisted inv at lateral malleolus) 08/02/24: 4/5 for all; PF tested in sitting PT-OP-Q Treatments Start: 05/16/24 10:33 Freq: Status: Active Protocol: Document 08/02/24 09:03 NM (Rec: 08/02/24 09:48 NM [id number]) Therapeutic Exercises Sitting Exercises foot intrinsics Sitting Exercise Name 1. arch raise, 2. toe flex, 3. toe ext 4. toe abd Side bilateral Resistance toe flex with level 2 band Reps/Minutes x10 reps each Comments cued for correct execution Standing Exercises hip 3 way Standing Exercise Name HEP reviewed- updated TB ankles vs thighs (provided TB for home) Side bilateral Resistance level 3 band at thighs Equipment Used 1 hand support for balance Reps/Minutes 10 ea Comments good control and upright posture; cued neutral foot positioning Other Exercises self STM Other Exercise Name plantar fascia Side right Equipment Used tennis ball roll gentle pressure massage Reps/Minutes 30 sec Comments cued light pressure not cause irritation Neuro Re-Education Treatment Balance Activities TUG Surface stable Equipment spc Comments 15 seconds foam Surface close SBA Equipment no hand support 1-3 and 7-8 , 1 finger support 4-6 near rail Reps/Duration 60 ea Comments 1. NBOS 2. head turns 3. head nods 4. calf raises, 20 5. toe raises, 20 6. step up, 10 ea 7. obstacles under mat, 2 sets x 8 ft w/ spc 8. lateral step on mat 4x8 ft ea, no obstacles PT-OP-T Assessment and Plan Start: 05/16/24 10:33 Freq: Status: Active Protocol: Document 08/02/24 09:03 NM (Rec: 08/02/24 09:48 NM [id number]) Physical Therapy Assessment Goals Five Impairment gait- 6 MWT distance with spc 567 ft Short Term Goal (STG) Pt will be able to ambulate using LRAD for at least 500 ft without increase in baseline pain in R ankle or L knee in order to demonstrate improved activity tolerance 06/15/24: 580 ft w/ 3/10 L ankle pain (decreased in pain from 10) STG Duration 6 weeks MET Mcfp Goal (LTG) Pt will improve 6 MWT distance using LRAD by at least 200 ft (1 MCID) in order to demonstrate improved gait speed, endurance, and BLE strength for household & community ambulation 07/31/24: gait 600 ft R ankle felt ok, L knee and L top ankle stiffness and plantarfascia soreness L>R. LTG Duration 12 weeks progressing 07/31/24 Four Impairment transfers- difficulty with sit to stand Short Term Goal (STG) Pt will be able to perform sit to stand using LRAD and at least 1 UE assist in order to stand without increase in baseline pain in order to demonstrate improved pain management and safety with transfers 06/15/24: Pt able to stand with LRAD and 1 hand assist, no ankle pain 07/12/24: can do STS with LRAD and 1 hand assist, no ankle pain; reports mild knee pain STG Duration 6 weeks MET Wiener Packer Goal (LTG) Pt will be able to perform at least 5 sit to stands from standard chair without UE assist, if appropriate, in order to demonstrate improved BLE strength for transfers and initial standing balance 07/12/24: 10 STS w/o UE assist from 21 table, reports B knee pain 07/31/24: 10 STS /s UE support from 20 table but pain in B knees 06/10. LTG Duration 12 weeks PROGRESSING 07/31/24 Three Impairment balance- TUG score 21 seconds Wiener Packer Goal (LTG) Pt will decrease TUG time using LRAD to less than 12 seconds in order to meet safe community ambulation distance/ speed in addition to improved balance to decrease fall risk 08/02/24: 15 seconds, 14 seconds LTG Duration 12 weeks PROGRESSING Two Impairment strength- limitations in R ankle strength Wiener Packer Goal (LTG) Pt will improve R ankle global strength to at least 4/5 in order to demonstrate increased strength for gait, stability during stance, and balance during transfers 06/15/24: 4/5 for DF, Pf, 4-/5 inv, 4/5 eversion 07/12/24: 4/5 for DF/EV/PF ( sitting), 4-/5 for inv (pain w / resisted inv at lateral malleolus) 08/02/24: 4/5 for all ( plantarflexion tested in sitting), no pain wiht any resisted motion LTG Duration 12 weeks MET One Impairment ROM- limitations in DF and eversion ROM Wiener Packer Goal (LTG) Pt will improve R ankle dorsiflexion AROM to at least 5 deg and R ankle eversion AROM to at least 10 deg in order to demonstrate improved gait mechanics and ankle ROM for functional mobility 06/15/24: 50 deg PF, 4 deg DF, 15 deg eversion, 28 deg inversion 07/12/24: 5 deg DF, 50 deg PF, 15 deg eversion, 28 deg inversion 08/02/24: 6 deg DF, 15 deg eversion, 30 deg inversion, 50 deg PF LTG Duration 12 weeks MET 07/12/24 Progress Towards Goals Progress Towards Goals Progressing Toward Goals,Slow Progress due to Medical Issues ,Goals Met Assessment Summary Assessment Pt tolerated session well. Met 2 goals today for strength and ankle ROM. Continues to have limitations with TUG due to STS time because B knee pain. Demos improved trunk and ankle stability on unstable surfaces, able to move in multiple directions with close SBA from PT. Has 2 instances of increased trunk sway with head movement but no LOB, able to correct without UE assistance. Progressed resistance hip 3 way in clinic , moved band up to thighs again due to resistance change . Physical Therapy Plan Frequency and Duration Frequency of Treatment 2x/Week Duration of treatment (weeks) 12 Plan of Care Start Date 05/16/24 Plan of Care End Date 08/11/24 Therapeutic Interventions Therapeutic Interventions Balance Training,Gait Training ,Home Exercise Program,Joint Mobilizations,Manual Therapy, Neuromuscular Re-education, Orthotic/Prosthetic Management ,Patient/Caregiver Education, Self-Care/Home Management, Sensory Integration,Soft Tissue Mobilization,Taping, Therapeutic Activities, Therapeutic Exercises Modalities Cold Pack/Ice Massage Next Visit Focus/Plan Next Note Type Treatment Note Next Visit Plan blood pressure pre and w/ activity d/c in 2 visits; cont foam balance. cont dynamic bal: fwd /bwd/lateral SKY calf stretch, buttock tap to chair (lower elevation as able 20). check tolerance to LAQ band level 3, side steps, balance. progress to STS from high surface with less UE support *per pt incorporate uneven surface walking for more confidence walking on grass. POC: progress to STS, leg pess , step up
--- NOTE | 2024-08-07 08:56 | PT.OTN ---
Current Diagnoses Stiffness of left knee, not elsewhere classified (08/07/24) Stiffness of right ankle, not elsewhere classified (08/07/24) Other lack of coordination (08/07/24) Weakness (08/07/24) Displaced fracture of lateral malleolus of right fibula, initial encounter for closed fracture (08/07/24) Physical Therapy Treatment Note PT-OP-A Visit Information Start: 05/16/24 10:33 Freq: Status: Active Protocol: Document 08/07/24 08:16 SP (Rec: 08/07/24 09:01 SP [id number]) Out-Patient Physical Therapy Visit Information Visit Information Visit Type Treatment Note Visit Note KX Modifier next tx Visit Start Time 08:16 Visit Stop Time 08:56 Visit Number 19 Number of MOLD STACKER Visits 1 Evaluation Information Evaluation Date 05/16/24 Precautions Precautions monitor vitals w/ exercise Afib, heart disease, fall risk PT-OP-B Current Condition Start: 05/16/24 10:33 Freq: Status: Active Protocol: Document 05/16/24 10:35 NM (Rec: 05/16/24 12:04 NM [id number]) Current Condition History of Current Condition Onset Date 2-3 months ago (pt unsure of date) Current Complaints pain, transfers, mobility, gait, balance, falls History of Current Condition Pt presents with RLE pain and limited mobility following high lateral malleolus fracture. States all healed, has Xray showing healed. He reports pain with WB on RLE during transfers and gait. Using spc in R hand, uses a FWW for household. 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 He reports that he still has L knee pain (aches and shooting pain, arch pain in foot) especially with attempting to rise from a chair. Pt reports that he broke his RLE after falling in the bathroom in the middle of the night, fell against the wall. He states he lost his balance and fell. He was in boot and had braces. Currently not in a brace or boot. He has 2 steps to get into the house, has a rail; no stairs inside the home. Hand rails only in shower, has a high rise toilet. No other injuries to his RLE. 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 However, he has had cardioversion before several times to correct rhythm. Significant PMH for blood pressure, possible aneurysm per pt, water retention in BLE. Reports several falls overall. Pt lives with , who attended evaluation and helped provide hx Prior Treatments and Tests 04/07/24 clinic appt with referral states radiographs reveal healed fracture Prior Functional Status Baseline Function- ADL's Independent Baseline Function- Mobility Independent Baseline Function- Gait 1-2 blocks Baseline Function- Recreation/Hobbies retired: golf (hasn't done since before TKA), fishing, clam digging, hunting Current Functional Impairments (Reported) Functional Limitations- ADL's balance and pain: dressing, shoes Functional Limitations- Mobility/Gait transfers (STS) ambulation with FWW and spc Functional Limitations- Recreation/ retired: golf (hasn't done Hobbies since before TKA), fishing, clam digging, hunting wants to get yard work PT-OP-C Subjective Start: 05/16/24 10:33 Freq: Status: Active Protocol: Document 08/07/24 08:16 SP (Rec: 08/07/24 09:01 SP [id number]) OP-PT Subjective Patient Comments Patient Comments Pt reports R dorsal ankle stiff, requested manual before start ex. He was out on boat over the weekend got no fish or crab. He states no pain in R ankle when on the boat this time but L knee still gets pain. PT-OP-E Functional Tests Start: 05/16/24 10:33 Freq: Status: Active Protocol: Document 05/16/24 10:35 NM (Rec: 05/16/24 12:04 NM [id number]) Functional Tests 6 Minute Walk Test Distance 567 ft Device Used spc in L hand Comments 1 stumble w/o LOB; has R heel pain after 4 minutes Five Times Sit to Stand Test Score unable to complete due to L knee pain Comments requires 2 hand assist to rise Timed Up and Go (TUG) Score 21 seconds Comments spc in L hand (corrected height) PT-OP-F Manual Assessment Start: 05/16/24 10:33 Freq: Status: Active Protocol: Document 05/16/24 10:35 NM (Rec: 05/16/24 12:04 NM [id number]) Manual Assessments Soft Tissue Assessment Soft Tissue Mobility Assessment Increased edema in BLE, worse at ankles/dorsal feet. Limitations in B heel cord length Joint Mobility Assessment Joint Mobility Assessment No instability at R ankle or knee, but limited ray and talocrural mobility PT-OP-G Mobility & Gait Start: 05/16/24 10:33 Freq: Status: Active Protocol: Document 05/16/24 10:35 NM (Rec: 05/16/24 12:04 NM [id number]) OP Gait Assessment Gait Gait Assistance Required: Standby Assistance Distance (Feet) 150 Assistive Devices Assistive Device Gait Belt,Straight Cane Gait Deviations General Gait Pattern Decreased Stride Length, Decreased Feet Clearance,Wide Based Gait Factors Limiting Gait Function Factors Limiting Gait Function Decreased Activity Tolerance, Decreased Sensation,Limited Range of Motion,Pain,Poor Balance Comments Gait Comments Performed at beginning of evaluation. Pt demos antalgic gait and uses spc in R hand, leaning heavily on spc for assistance. Spc placed far from body. Demos B foot ER, quick heel off after weight acceptance. Wide based gait. Uses custom wood spc PT-OP-H Neuro Start: 05/16/24 10:33 Freq: Status: Active Protocol: Document 05/16/24 10:35 NM (Rec: 05/16/24 12:04 NM [id number]) Sensation Evaluation Comments Summary Comments BLE equally intact to light touch sensation PT-OP-J Posture/Palpation/Skin Start: 05/16/24 10:33 Freq: Status: Active Protocol: Document 05/16/24 10:35 NM (Rec: 05/16/24 12:04 NM [id number]) Posture Evaluation Comments Posture Comments Demos wide base stance, decreased WB on RLE Palpation Assessment Location R leg Palpation Findings Edema,Soft Tissue Tightness Palpation Details No tenderness to palpation along medial or lateral malleoli or along entire fibula from malleoli to fibular head. No tenderness along tibia. Tenderness along talocrural joint near mortise Increased edema bilaterally, especially along dorsal foot and ankle, non-pitting Skin Assessment Circumference Measurement L ankle Location figure 8: 65 cm R ankle Location figure 8: 60 cm Comments 30 cm across malleoli Other Assessments Skin Assessment Comments BLE ankle/feet skin is tight due to edema, reddened and dry /flaky PT-OP-K Range of Motion Start: 05/16/24 10:33 Freq: Status: Active Protocol: Document 08/02/24 09:03 NM (Rec: 08/02/24 09:48 NM [id number]) Ankle and Foot Goniometric Range of Motion Ankle and Foot Left Dorsiflexion with Knee Flexed 3 Plantarflexion 40 Inversion 20 Eversion 2 Right Dorsiflexion with Knee Flexed 6 Plantarflexion 50 Inversion 15 Eversion 30 Comments IE: 0 deg DF, 45 deg PF, 15 deg inv, 2 deg ev; Mild pain with AROM DF, inversion 06/15/24: 50 deg PF, 4 deg DF, 15 deg eversion, 28 deg inversion 07/12/24: 5 deg DF, 50 deg PF, 15 deg everesion, 28 deg inversion 08/02/24: 6 deg DF, 15 deg eversion, 30 deg inversion, 50 deg PF PT-OP-M Strength Start: 05/16/24 10:33 Freq: Status: Active Protocol: Document 08/02/24 09:03 NM (Rec: 08/02/24 09:48 NM [id number]) Ankle/Foot Strength Ankle and Foot Manual Muscle Testing Left Dorsiflexion (L4) 4 Good Plantarflexion (S1) 4 Good Inversion 4 Good Eversion (S1) 4 Good Comments All tested in sitting (no standing PF due to time) Right Dorsiflexion (L4) 4 Good Plantarflexion (S1) 4 Good Inversion 4 Good Eversion (S1) 4 Good Comments All tested in sitting (no standing PF due to time) 06/15/24: 4/5 for DF, Pf, 4-/5 inv, 4/5 eversion 07/12/24: 4/5 for DF/EV/PF ( sitting), 4-/5 for inv (pain w / resisted inv at lateral malleolus) 08/02/24: 4/5 for all; PF tested in sitting PT-OP-Q Treatments Start: 05/16/24 10:33 Freq: Status: Active Protocol: Document 08/07/24 08:16 SP (Rec: 08/07/24 09:01 SP [id number]) Therapeutic Exercises Sitting Exercises sit<> stand Sitting Exercise Name no UE- unable to Side bilateral Resistance no UE support after initial stand Equipment Used 20 table x10 STS 43 sec Reps/Minutes 18 table 2x before knee apin Comments cued wt shift more forward Standing Exercises hip 3 way Standing Exercise Name HEP reviewed- updated TB shins Side bilateral Resistance level 3 band at shins Equipment Used 1 hand support counter for balance Reps/Minutes 10 ea (written 2 sets on HO) Comments good form side steps Standing Exercise Name Fwd, bwd, lateral stepping- added to HEP Side bilateral Resistance level 3 band at thighs> shins Equipment Used no UE support, near rail Reps/Minutes 10 ft x3 laps Comments cued neutral foot placement // fwd, hip muscle tiring, no pain ankle DF raises Standing Exercise Name HEP review Side bilateral Equipment Used back on wall for safety Reps/Minutes 20 x2 Comments limited ROM on L with reps- weakness, pain free calf raises Standing Exercise Name HEP reviewed Side bilateral Equipment Used contact facing wall Reps/Minutes 20 reps 1 UE contact wall, 20 reps no UE support Comments good form pnfree step ups Standing Exercise Name step up/back down repeated same leg then switch- HEP reviewed Side bilateral Resistance AROM Equipment Used 6 step, light 1 HR opp LE leading Reps/Minutes 20 reps each LE Comments with cueing for push through heel, knee flexion and strong quad TKE Manual Therapy Treatment Joint Mobilizations L knee Joint tib femoral APs in various range flexion Grade II Body Position Hooklying Comments pnfree reported R ankle/foot Joint TC AP, tib/fib AP and PA, calcaneal distraction med/lat, MTP gross motor rot Direction R Grade II Body Position Hooklying Comments Monitored for pain, to improve ankle mobility during gait. Mild tenderness near distal fibula with mobilization of subtalar and tibiofibular joints PT-OP-T Assessment and Plan Start: 05/16/24 10:33 Freq: Status: Active Protocol: Document 08/07/24 08:16 SP (Rec: 08/07/24 09:01 SP [id number]) Physical Therapy Assessment Goals Five Impairment gait- 6 MWT distance with spc 567 ft Short Term Goal (STG) Pt will be able to ambulate using LRAD for at least 500 ft without increase in baseline pain in R ankle or L knee in order to demonstrate improved activity tolerance 06/15/24: 580 ft w/ 3/10 L ankle pain (decreased in pain from 03/10) STG Duration 6 weeks MET Feather Trimmer Goal (LTG) Pt will improve 6 MWT distance using LRAD by at least 200 ft (1 MCID) in order to demonstrate improved gait speed, endurance, and BLE strength for household & community ambulation 07/31/24: gait 600 ft R ankle felt ok, L knee and L top ankle stiffness and plantarfascia soreness L>R. LTG Duration 12 weeks progressing 07/31/24 Four Impairment transfers- difficulty with sit to stand Short Term Goal (STG) Pt will be able to perform sit to stand using LRAD and at least 1 UE assist in order to stand without increase in baseline pain in order to demonstrate improved pain management and safety with transfers 06/15/24: Pt able to stand with LRAD and 1 hand assist, no ankle pain 07/12/24: can do STS with LRAD and 1 hand assist, no ankle pain; reports mild knee pain STG Duration 6 weeks MET Senior Living Goal (LTG) Pt will be able to perform at least 5 sit to stands from standard chair without UE assist, if appropriate, in order to demonstrate improved BLE strength for transfers and initial standing balance 07/12/24: 10 STS w/o UE assist from 21 table, reports B knee pain 07/31/24: 10 STS /s UE support from 20 table but pain in B knees 06/10. 08/07/24 43 sec 10 x STS from 20 elevated table only use hand initialy stand then rest no UE support. 2x STS no UE support before knees pain need stop from 18 table quicker eccentric sit. LTG Duration 12 weeks PROGRESSING 08/07/24 Three Impairment balance- TUG score 21 seconds Feather Trimmer Goal (LTG) Pt will decrease TUG time using LRAD to less than 12 seconds in order to meet safe community ambulation distance/ speed in addition to improved balance to decrease fall risk 08/02/24: 15 seconds, 14 seconds LTG Duration 12 weeks PROGRESSING Two Impairment strength- limitations in R ankle strength Feather Trimmer Goal (LTG) Pt will improve R ankle global strength to at least 4/5 in order to demonstrate increased strength for gait, stability during stance, and balance during transfers 06/15/24: 4/5 for DF, Pf, 4-/5 inv, 4/5 eversion 07/12/24: 4/5 for DF/EV/PF ( sitting), 4-/5 for inv (pain w / resisted inv at lateral malleolus) 08/02/24: 4/5 for all ( plantarflexion tested in sitting), no pain wiht any resisted motion LTG Duration 12 weeks MET One Impairment ROM- limitations in DF and eversion ROM Senior Living Goal (LTG) Pt will improve R ankle dorsiflexion AROM to at least 5 deg and R ankle eversion AROM to at least 10 deg in order to demonstrate improved gait mechanics and ankle ROM for functional mobility 06/15/24: 50 deg PF, 4 deg DF, 15 deg eversion, 28 deg inversion 07/12/24: 5 deg DF, 50 deg PF, 15 deg eversion, 28 deg inversion 08/02/24: 6 deg DF, 15 deg eversion, 30 deg inversion, 50 deg PF LTG Duration 12 weeks MET 07/12/24 Assessment Summary Assessment Pt good tolerance to ther ex. Was able to complete 2 STS from 18 height table after completed 10 STS form 20 table no UE support 43 sec. Only pain had was L>R knees during STS from the lower 18, improved strength. Pt reports no pain with any other ther ex today. Is pleased with his PT progress and had no pain while on boat over the weekend. Will still keep his Rheumotologist appt in 2 weeks for support plantar feet and hoping will help increased endurance standing and less pain coming to standing after sitting a while. MOLD STACKER and pt in agreement is ready to DC to HEP next tx. Physical Therapy Plan Frequency and Duration Frequency of Treatment 2x/Week Duration of treatment (weeks) 12 Plan of Care Start Date 05/16/24 Plan of Care End Date 08/11/24 Therapeutic Interventions Therapeutic Interventions Balance Training,Gait Training ,Home Exercise Program,Joint Mobilizations,Manual Therapy, Neuromuscular Re-education, Orthotic/Prosthetic Management ,Patient/Caregiver Education, Self-Care/Home Management, Sensory Integration,Soft Tissue Mobilization,Taping, Therapeutic Activities, Therapeutic Exercises Modalities Cold Pack/Ice Massage Next Visit Focus/Plan Next Note Type Discharge Summary Next Visit Plan blood pressure pre and w/ activity d/c Next visits; cont foam balance. cont dynamic bal: fwd /bwd/lateral SKY calf stretch, buttock tap to chair (lower elevation as able 20). check tolerance to LAQ band level 3, side steps, balance. progress to STS from high surface with less UE support *per pt incorporate uneven surface walking for more confidence walking on grass. POC: progress to STS, leg pess , step up
--- NOTE | 2024-08-09 13:36 | PT.OTN ---
Current Diagnoses Stiffness of left knee, not elsewhere classified (08/09/24) Stiffness of right ankle, not elsewhere classified (08/09/24) Other lack of coordination (08/09/24) Weakness (08/09/24) Displaced fracture of lateral malleolus of right fibula, initial encounter for closed fracture (08/09/24) Physical Therapy Treatment Note PT-OP-A Visit Information Start: 05/16/24 10:33 Freq: Status: Active Protocol: Document 08/09/24 07:27 NM (Rec: 08/09/24 07:28 NM [id number]) Out-Patient Physical Therapy Visit Information Visit Information Visit Type Discharge Summary Visit Start Time 08:18 Visit Stop Time 09:01 Visit Number 20 Evaluation Information Evaluation Date 05/16/24 Precautions Precautions monitor vitals w/ exercise Afib, heart disease, fall risk PT-OP-B Current Condition Start: 05/16/24 10:33 Freq: Status: Active Protocol: Document 05/16/24 10:35 NM (Rec: 05/16/24 12:04 NM [id number]) Current Condition History of Current Condition Onset Date 2-3 months ago (pt unsure of date) Current Complaints pain, transfers, mobility, gait, balance, falls History of Current Condition Pt presents with RLE pain and limited mobility following high lateral malleolus fracture. States all healed, has Xray showing healed. He reports pain with WB on RLE during transfers and gait. Using spc in R hand, uses a FWW for household. 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 He reports that he still has L knee pain (aches and shooting pain, arch pain in foot) especially with attempting to rise from a chair. Pt reports that he broke his RLE after falling in the bathroom in the middle of the night, fell against the wall. He states he lost his balance and fell. He was in boot and had braces. Currently not in a brace or boot. He has 2 steps to get into the house, has a rail; no stairs inside the home. Hand rails only in shower, has a high rise toilet. No other injuries to his RLE. 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 However, he has had cardioversion before several times to correct rhythm. Significant PMH for blood pressure, possible aneurysm per pt, water retention in BLE. Reports several falls overall. Pt lives with , who attended evaluation and helped provide hx Prior Treatments and Tests 04/07/24 clinic appt with referral states radiographs reveal healed fracture Prior Functional Status Baseline Function- ADL's Independent Baseline Function- Mobility Independent Baseline Function- Gait 1-2 blocks Baseline Function- Recreation/Hobbies retired: golf (hasn't done since before TKA), fishing, clam digging, hunting Current Functional Impairments (Reported) Functional Limitations- ADL's balance and pain: dressing, shoes Functional Limitations- Mobility/Gait transfers (STS) ambulation with FWW and spc Functional Limitations- Recreation/ retired: golf (hasn't done Hobbies since before TKA), fishing, clam digging, hunting wants to get yard work PT-OP-C Subjective Start: 05/16/24 10:33 Freq: Status: Active Protocol: Document 08/09/24 07:27 NM (Rec: 08/09/24 07:28 NM [id number]) OP-PT Subjective Patient Comments Patient Comments Pt reports still has arch pain when sits or stands for a while, states in L foot not R foot. Still has B knee pain. Brought HEP and bands. Wants to be done with PT today. Still seeing residential designer in 1 week. PT-OP-E Functional Tests Start: 05/16/24 10:33 Freq: Status: Active Protocol: Document 05/16/24 10:35 NM (Rec: 05/16/24 12:04 NM [id number]) Functional Tests 6 Minute Walk Test Distance 567 ft Device Used spc in L hand Comments 1 stumble w/o LOB; has R heel pain after 4 minutes Five Times Sit to Stand Test Score unable to complete due to L knee pain Comments requires 2 hand assist to rise Timed Up and Go (TUG) Score 21 seconds Comments spc in L hand (corrected height) PT-OP-F Manual Assessment Start: 05/16/24 10:33 Freq: Status: Active Protocol: Document 05/16/24 10:35 NM (Rec: 05/16/24 12:04 NM [id number]) Manual Assessments Soft Tissue Assessment Soft Tissue Mobility Assessment Increased edema in BLE, worse at ankles/dorsal feet. Limitations in B heel cord length Joint Mobility Assessment Joint Mobility Assessment No instability at R ankle or knee, but limited ray and talocrural mobility PT-OP-G Mobility & Gait Start: 05/16/24 10:33 Freq: Status: Active Protocol: Document 05/16/24 10:35 NM (Rec: 05/16/24 12:04 NM [id number]) OP Gait Assessment Gait Gait Assistance Required: Standby Assistance Distance (Feet) 150 Assistive Devices Assistive Device Gait Belt,Straight Cane Gait Deviations General Gait Pattern Decreased Stride Length, Decreased Feet Clearance,Wide Based Gait Factors Limiting Gait Function Factors Limiting Gait Function Decreased Activity Tolerance, Decreased Sensation,Limited Range of Motion,Pain,Poor Balance Comments Gait Comments Performed at beginning of evaluation. Pt demos antalgic gait and uses spc in R hand, leaning heavily on spc for assistance. Spc placed far from body. Demos B foot ER, quick heel off after weight acceptance. Wide based gait. Uses custom wood spc PT-OP-H Neuro Start: 05/16/24 10:33 Freq: Status: Active Protocol: Document 05/16/24 10:35 NM (Rec: 05/16/24 12:04 NM [id number]) Sensation Evaluation Comments Summary Comments BLE equally intact to light touch sensation PT-OP-J Posture/Palpation/Skin Start: 05/16/24 10:33 Freq: Status: Active Protocol: Document 05/16/24 10:35 NM (Rec: 05/16/24 12:04 NM [id number]) Posture Evaluation Comments Posture Comments Demos wide base stance, decreased WB on RLE Palpation Assessment Location R leg Palpation Findings Edema,Soft Tissue Tightness Palpation Details No tenderness to palpation along medial or lateral malleoli or along entire fibula from malleoli to fibular head. No tenderness along tibia. Tenderness along talocrural joint near mortise Increased edema bilaterally, especially along dorsal foot and ankle, non-pitting Skin Assessment Circumference Measurement L ankle Location figure 8: 65 cm R ankle Location figure 8: 60 cm Comments 30 cm across malleoli Other Assessments Skin Assessment Comments BLE ankle/feet skin is tight due to edema, reddened and dry /flaky PT-OP-K Range of Motion Start: 05/16/24 10:33 Freq: Status: Active Protocol: Document 08/09/24 07:27 NM (Rec: 08/09/24 07:28 NM [id number]) Ankle and Foot Goniometric Range of Motion Ankle and Foot Left Dorsiflexion with Knee Flexed 3 Plantarflexion 40 Inversion 20 Eversion 2 Right Dorsiflexion with Knee Flexed 6 Plantarflexion 50 Inversion 15 Eversion 30 Comments IE: 0 deg DF, 45 deg PF, 15 deg inv, 2 deg ev; Mild pain with AROM DF, inversion 06/15/24: 50 deg PF, 4 deg DF, 15 deg eversion, 28 deg inversion 07/12/24: 5 deg DF, 50 deg PF, 15 deg everesion, 28 deg inversion 08/02/24: 6 deg DF, 15 deg eversion, 30 deg inversion, 50 deg PF PT-OP-M Strength Start: 05/16/24 10:33 Freq: Status: Active Protocol: Document 08/09/24 07:27 NM (Rec: 08/09/24 07:28 NM [id number]) Ankle/Foot Strength Ankle and Foot Manual Muscle Testing Left Dorsiflexion (L4) 4 Good Plantarflexion (S1) 4 Good Inversion 4 Good Eversion (S1) 4 Good Comments All tested in sitting (no standing PF due to time) Right Dorsiflexion (L4) 4 Good Plantarflexion (S1) 4 Good Inversion 4 Good Eversion (S1) 4 Good Comments All tested in sitting (no standing PF due to time) 06/15/24: 4/5 for DF, Pf, 4-/5 inv, 4/5 eversion 07/12/24: 4/5 for DF/EV/PF ( sitting), 4-/5 for inv (pain w / resisted inv at lateral malleolus) 08/02/24: 4/5 for all; PF tested in sitting PT-OP-Q Treatments Start: 05/16/24 10:33 Freq: Status: Active Protocol: Document 08/09/24 07:27 NM (Rec: 08/09/24 07:29 NM [id number]) Therapeutic Exercises Sitting Exercises foot intrinsics Sitting Exercise Name 1. arch raise, 2. toe abd Side bilateral Resistance toe flex with level 2 band Reps/Minutes 20 ea Comments cued for correct execution LAQ Sitting Exercise Name HEP review Side bilateral Resistance level 3 band Equipment Used mesh chair Reps/Minutes 20 with 2 hold ankle AROM Sitting Exercise Name Eversion, inversion (HEP review- states has HO) Side right Resistance level 3 Reps/Minutes 30 ea Comments cueing for correct exec w/ eversion to prevent hip ABD/ER Standing Exercises hip 3 way Standing Exercise Name HEP reviewed- updated TB shins Side bilateral Resistance level 3 band at shins Equipment Used 1 hand support counter for balance Reps/Minutes 10 ea (written 2 sets on HO) Comments good form calf raises Standing Exercise Name HEP reviewed Side bilateral Equipment Used hand support on plinth Reps/Minutes 3x10 Comments good form pnfree calf stretch Standing Exercise Name HEP (Pt reports performs the lunge for calf stretch) Side bilateral Equipment Used SKY, //bar support Reps/Minutes 30 Comments feels good light calf stretch, no plantar fascia pain reported Other Exercises self STM Other Exercise Name plantar fascia Side bilateral Equipment Used tennis ball roll gentle pressure massage Reps/Minutes 30 sec Comments cued light pressure not cause irritation Gait Training Gait Activity TUG Device Used spc Level of Assistance close SBA Surface stable Treatment Focus gait speed Comments 23 sec, 16 sec, 17 sec = avg 18 sec Most limited by STS pain in knees 6MWT Device Used spc Level of Assistance close SBA Distance/Duration 660 ft Treatment Focus endurance, gait speed Comments 1 instance of stumble when foot catches as fatigues at 5th minute maggy when pt turns to listen to PT, but able to self correct without assistance from PT. Mild L knee pain PT-OP-T Assessment and Plan Start: 05/16/24 10:33 Freq: Status: Active Protocol: Document 08/09/24 07:27 NM (Rec: 08/09/24 07:28 NM [id number]) Physical Therapy Assessment Goals Five Impairment gait- 6 MWT distance with spc 567 ft Short Term Goal (STG) Pt will be able to ambulate using LRAD for at least 500 ft without increase in baseline pain in R ankle or L knee in order to demonstrate improved activity tolerance 06/15/24: 580 ft w/ 3/10 L ankle pain (decreased in pain from 5/10) STG Duration 6 weeks MET Prison Goal (LTG) Pt will improve 6 MWT distance using LRAD by at least 200 ft (1 MCID) in order to demonstrate improved gait speed, endurance, and BLE strength for household & community ambulation 07/31/24: gait 600 ft R ankle felt ok, L knee and L top ankle stiffness and plantarfascia soreness L>R. 08/09/24: 660 ft with spc, 1 instance of stumble but able to correct; reports L knee pain with ambulation; improved 100 ft but did not meet goal LTG Duration 12 weeks NOT MET 08/09/24 Four Impairment transfers- difficulty with sit to stand Short Term Goal (STG) Pt will be able to perform sit to stand using LRAD and at least 1 UE assist in order to stand without increase in baseline pain in order to demonstrate improved pain management and safety with transfers 06/15/24: Pt able to stand with LRAD and 1 hand assist, no ankle pain 07/12/24: can do STS with LRAD and 1 hand assist, no ankle pain; reports mild knee pain STG Duration 6 weeks MET [employer] Goal (LTG) Pt will be able to perform at least 5 sit to stands from standard chair without UE assist, if appropriate, in order to demonstrate improved BLE strength for transfers and initial standing balance 07/12/24: 10 STS w/o UE assist from 21 table, reports B knee pain 07/31/24: 10 STS /s UE support from 20 table but pain in B knees 06/10. 08/07/24 43 sec 10 x STS from 20 elevated table only use hand initialy stand then rest no UE support. 2x STS no UE support before knees pain need stop from 18 table quicker eccentric sit. LTG Duration 12 weeks PARTIALLY MET 08/07/24 Three Impairment balance- TUG score 21 seconds Facility [employer] Goal (LTG) Pt will decrease TUG time using LRAD to less than 12 seconds in order to meet safe community ambulation distance/ speed in addition to improved balance to decrease fall risk 08/02/24: 15 seconds, 14 seconds 08/09/24: average 18 seconds with spc; limited by STS due to pain in knees LTG Duration 12 weeks NOT MET Two Impairment strength- limitations in R ankle strength Prison Goal (LTG) Pt will improve R ankle global strength to at least 4/5 in order to demonstrate increased strength for gait, stability during stance, and balance during transfers 06/15/24: 4/5 for DF, Pf, 4-/5 inv, 4/5 eversion 07/12/24: 4/5 for DF/EV/PF ( sitting), 4-/5 for inv (pain w / resisted inv at lateral malleolus) 08/02/24: 4/5 for all ( plantarflexion tested in sitting), no pain wiht any resisted motion LTG Duration 12 weeks MET One Impairment ROM- limitations in DF and eversion ROM Prison Goal (LTG) Pt will improve R ankle dorsiflexion AROM to at least 5 deg and R ankle eversion AROM to at least 10 deg in order to demonstrate improved gait mechanics and ankle ROM for functional mobility 06/15/24: 50 deg PF, 4 deg DF, 15 deg eversion, 28 deg inversion 07/12/24: 5 deg DF, 50 deg PF, 15 deg eversion, 28 deg inversion 08/02/24: 6 deg DF, 15 deg eversion, 30 deg inversion, 50 deg PF LTG Duration 12 weeks MET 07/12/24 Progress Towards Goals Progress Towards Goals Progressing Toward Goals,Slow Progress due to Medical Issues ,Goals Met Assessment Summary Assessment Pt tolerated session well. Emphasis on establishing maintenance program as pt planning to discharge from PT today vs extend plan of care. Pt has been referred to rheumatology for continued L knee pain (not what pt referred for). Pt reports no limitations in mobility due to R ankle, only his B knees which has had since before evaluation. Pt requires set up assist for ankle inversion/ eversion exercise and hip 3 way only. Demos faster gait speed and longer gait distance today during 6 MWT (660 ft) with spc; does have 1 instance of stumble but able to self- correct using spc. Physical Therapy Plan Frequency and Duration Frequency of Treatment 2x/Week Duration of treatment (weeks) 12 Plan of Care Start Date 05/16/24 Plan of Care End Date 08/11/24 Therapeutic Interventions Therapeutic Interventions Balance Training,Gait Training ,Home Exercise Program,Joint Mobilizations,Manual Therapy, Neuromuscular Re-education, Orthotic/Prosthetic Management ,Patient/Caregiver Education, Self-Care/Home Management, Sensory Integration,Soft Tissue Mobilization,Taping, Therapeutic Activities, Therapeutic Exercises Modalities Cold Pack/Ice Massage Discharge Physical Therapy Discharge Comments Plan of care ending. Pt has met 2/5 PT goals and partially met 1 PT goal. Remaining goals improved since initial evaluation but limited by STS due to L knee pain. Pt is being referred to rheumatology for joint pain as L knee pain is most prevalent (not referred to PT this round for knee pain, only referred for ankle) Next Visit Focus/Plan Next Note Type Discharge Summary Next Visit Plan discharge from PT
== END 2024-08-11 14:58 | disposition home or self-care (01) ==
LOC: PHYS 08:15
PROVIDERS: Family Provider Family Medicine; PCP Family Medicine; Referring Provider Physician Assistant; Visit Provider Physician Assistant
DX: S82.61XA Displaced fracture of lateral malleolus of right fibula, initial encounter for closed fracture (principal); R53.1 Weakness; M25.662 Stiffness of left knee, not elsewhere classified; M25.671 Stiffness of right ankle, not elsewhere classified; R27.8 Other lack of coordination
CPT/HCPCS: 97110; 97112; 97116; 97140; 97162; 97535